=== PATIENT | female | born 1975 | race Caucasian/White ===

== ENCOUNTER 2019-09-03 05:52 | Observation (INO) ==
[2019-09-03] MEDS ORDERED: ACETAMINOPHEN 1,000 MG/100 ML VIAL IV STA ×2 (06:23→14:13)
--- NOTE | 2019-09-03 06:27 | Emergency Department Note ---
ED Visit Note This patient was seen in concert with Dr. Stein and we discussed and agreed upon the history, physical, assessment, and plan. See attending's note for details. . Resident Activity Tracking Resident Involvement: Resident Care Provided Care Provided: Adult ED
[2019-09-03 06:31] LABS: Hematocrit (blood only) 40.2 % (37-47); Hemoglobin 13.4 g/dL (12.0-16.0); Mean Corpuscular Hgb Conc 33.3 g/dL (32-36); Mean Corpuscular Volume 90.1 fL (80-100); Mean Platelet Volume 10.7 fL (7.4-10.4); Platelet Count 246 K/uL (130-400); RDW Coefficient of Variation 12.8 % (11.5-14.5); RDW Standard Deviation 41.9 fL (36.4-46.3); Red Blood Count 4.46 M/uL (4.2-5.4); White Blood Count 18.93 K/uL (4.8-10.8)
[2019-09-03 06:48] LABS: Albumin Level 4.3 gm/dl (3.4-5.0); BUN Creatinine Ratio 15.8 (10-20); Creatinine Clr Calc Pharmacy 77.1 ml/min; Est GFR (Non-African American) 63.8; Potassium 3.7 mmol/L (3.5-5.1)
[2019-09-03 06:51] LABS: Albumin Globulin Ratio 1.2 (0.9-2); Bilirubin,Total 0.7 mg/dl (0.2-1); Globulin 3.6 gm/dl (2.5-4.0); Total Protein 7.9 gm/dl (6.4-8.2)
[2019-09-03 06:52] LABS: Basophils # (auto) 0.02 K/uL (0-0.2); Basophils % (auto) 0.1 %; Eosinophils # (auto) 0.02 K/uL (0-0.5); Eosinophils % (auto) 0.1 %; Immature Granulocytes # (auto) 0.04 K/uL (0.00-0.02); Immature Granulocytes % (auto) 0.2 %; Lymphocytes # (auto) 0.59 K/uL (1.2-3.4); Lymphocytes % (auto) 3.1 %; Monocytes # (auto) 1.23 K/uL (0.11-0.59); Monocytes % (auto) 6.5 %; Neutrophils # (auto) 17.03 K/uL (1.4-6.5); Toxic Granulation 1+
[2019-09-03] MEDS ORDERED: SODIUM CHLORIDE 0.9% 500 ML IV ONE (07:03)
[2019-09-03 07:40] LABS: Appearance Urine Clear (Clear); Bacteria Urine Automated Negative (Negative); Bilirubin Urine Negative (Negative); Blood Urine 1+ (Negative); Color Urine Yellow; Epithelial Cell Urine Auto >30 /lpf (0-5); Glucose Urine UA Negative (Negative); Ketones Urine Negative (Negative); Leukocyte Esterase Urine Trace (Negative); Nitrite Urine Negative (Negative); Protein Urine Negative (Negative); Specific Gravity Urine 1.021 (1.000-1.030); Urobilinogen Urine Negative (Negative); pH Urine 6.5 (4.5-7.5)
--- NOTE | 2019-09-03 08:02 | Ultrasound Report ---
EXAMINATION: PELVIC ULTRASOUND (transabdominal and endovaginal scanning) CLINICAL HISTORY: IUD placement yesterday, R abdomen pain COMPARISON STUDY: Sonohysterography dated 08/09/2019 FINDINGS: Following transabdominal scanning, endovaginal scanning was performed to better evaluate the patient' s IUD and multiple fibroids. The uterus measured 9.3 x 4.8 x 6.6 cm. The endometrial stripe measured 1.1 cm. There are multiple uterine fibroids, the largest of which ashia sures 5 cm. There is an indwelling IUD.. The right ovary measured 33 x 19 x 26 mm. The left ovary measured 15 x 30 x 12 mm. There is no ultrasonographic evidence of ovarian torsion. It should be noted that ovarian torsion can be present with normal Doppler ultrasonographic findings. There was no evidence of pathologic free pelvic fluid. IMPRESSION: 1. Fibroid uterus. The largest fibroid measures 5 cm 2. Indwelling IUD 3. The endometrial cavity is distorted by the large fibroid 4. No ovarian abnormalities identified. ACT 112: Negative or not required by law. Electronically signed by: Marc Craig M.D. 09/03/2019 8:01 AM
[2019-09-03] MEDS ORDERED: MoRPHine SULFATE 4 MG/ML 1 ML CARP\\VIAL IV STA (08:18)
[2019-09-03] MEDS ORDERED: ONDANSETRON INJ 2 MG/ML 2 ML VIAL IV STA ×2 (08:18→13:49)
[2019-09-03] MEDS: HYDROmorphone INJ 1 MG/ML SYRINGE IV PRN ×2 (08:36→13:54)
[2019-09-03] MEDS ORDERED: IOVERSOL 100ml IV PRN (08:43)
--- NOTE | 2019-09-03 09:01 | CT Scan Report ---
CT abd pelvis IV con only CLINICAL HISTORY: Right-sided abdominal pain COMPARISON STUDY: Pelvic ultrasound dated 09/03/2019 FINDINGS: The patient was scanned in a dynamic helical fashion during intravenous administration of 94 cc of Op tiray 320. The visualized portions of lung bases reveal minimal dependent atelectatic change. No hepatic masses are visualized. The hepatic and portal veins appear patent. Gas-forming calculi are visualized within the gallbladder. No splenic lesions are visualized. No pancreatic masses are visualized. Neither adrenal gland is pathologically enlarged. There is no hydronephrosis. No solid renal masses are visualized. There is a subcentimeter right mikey l hypodensity likely representing a cyst. There are no transition zones to indicate bowel obstruction. There is no evidence of acute diverticul itis. The appendix is difficult to visualize. There is a structure which likely represents a short di lated appendix. There are however no periappendiceal inflammatory changes in this may represent an no rmal variant. There is no evidence of abdominal aortic aneurysm. There is no pathologic adenopathy. There is a fibroid uterus. There is an indwelling IUD. No destructive skeletal lesions are visualized IMPRESSION: 1. No evidence of bowel obstruction. No evidence of free air 2. Cholelithiasis 3. Fibroid uterus. Indwelling IUD. 4. No evidence of acute diverticulitis 5. The appendix is difficult to visualize but a short mildly dilated appendix is suspected. There are no periappendiceal inflammatory changes and this finding may represent a normal variant. Clinical fo llow-up is recommended. ACT 112: Negative or not required by law. Electronically signed by: Marc Craig M.D. 09/03/2019 9:00 AM
[2019-09-03] MEDS ORDERED: cefOXitin 2,000 MG/60 ML BAG IV STA (09:16)
--- NOTE | 2019-09-03 12:53 | OB/GYN Consultation ---
Date of Consultation September 03, 2019 Assessment & Plan (1) Pain in female pelvis: I have discussed with the patient the option of leaving the IUD in versus removing it I was somewhat concerned of a possible intramural insertion of the IUD simply because her pain was so much however on removing the IUD which I offered to actually have her keep in but she preferred to have removed as well on removing the IUD it was simple and no difficulty and no pain. Her bimanual exam is normal and negative I see no evidence of pelvic inflammatory disease however I did do a GC chlamydia culture I do not think her pain is [employer] related at this time but will follow closely History of Present Illness History of Present Illness 44-year-old patient known to our practice had a injury uterine device placed yesterday by Dr. Almaraz. Patient states the IUD was able to be placed but it was somewhat uncomfortable as she has a history of fibroids and it was somewhat of a difficult insertion she felt fine afterwards for some minimal cramping however over the evening she started to develop right-sided pain that was very sharp and intense. The pain worsened so much that she presented to the emergency room this morning. She was assessed by the emergency room team and general surgery. States her pain is somewhat improved at this time but is mainly on the right side it is cramping in nature at this stage. Her past [employer] history is significant for fibroids 1 of which may be intracavitary. Her medical history is significant for psoriatic arthritis and the patient is on Humira Allergies Allergy/AdvReac Type Severity Reaction Status Date / Time No Known Allergies Allergy Unverified 09/03/19 06:33 Home Medications Home Medications Medication Instructions Recorded Confirmed Type multivitamin 1 tab PO DAILY 07/10/19 09/03/19 History clobetasol 0.05 % topical cream See Rx Instructions TOP .COMPLEX 08/30/19 09/03/19 History PRN clobetasol 0.05 % topical foam See Rx Instructions TOP .COMPLEX 08/30/19 09/03/19 History PRN adalimumab [Humira Pen] 40 mg SUBCUT UD 09/03/19 09/03/19 History Patient History Medical History (Updated 09/03/19 @ 12:52 by Enma Biggs MD, FACOG) Arthritis Psoriatic arthritis Shingles Varicella Surgical History (Updated 07/10/19 @ 16:11 by MARGE Martinez) [place] teeth removed Social History (Updated 07/10/19 @ 15:57 by Eliane Lujan) Preferred Language: Arabic Feels Safe at Home: Yes Smoking Status: Never smoker Physical Exam Constitutional: WD/WN, vitals as above Respiratory: normal respiratory effort, lungs clear to auscultation Cardiovascular: RRR, no murmur, no edema Gastrointestinal (Abdomen): normal bowel sounds, soft, nontender, no hepatosplenomegaly Genitourinary: no vaginal lesions, no adnexal mass Speculum/Bimanual Exam: normal appearance of the vagina and normal appearance of the cervix (IUD string seen) IUD removed with a Sarai clamp by pulling on the string it was easily removed without discomfort there is no cervical motion tenderness the uterus is nontender on palpation and mobile Results & Data Vital Signs (Past 12 Hours) Vital Signs Temp Pulse Pulse Resp BP BP Pulse Ox 09/03/19 11:28 97 H 20 120/63 97 09/03/19 10:26 89 16 112/57 L 97 09/03/19 09:29 82 22 123/66 95 09/03/19 08:13 89 18 120/60 95 09/03/19 06:51 105 H 18 98/47 L 95 09/03/19 06:34 96 09/03/19 06:33 110 H 18 96 09/03/19 05:59 99.5 F 118 H 22 124/69 95 PG Care Time/CCT Total # of Minutes Spent Total Time Spent with Patient: Total time spent is greater than 50% in coordi nation of care (as documented) at patient's floor/unit and/or counseling patient:
--- NOTE | 2019-09-03 14:35 | Emergency Department Note ---
Entered by hSar Almodovar acting as a scribe for Norman Stein MD History of Present Illness General Chief complaint: Abdominal Pain Stated complaint: SEVERE PAIN IN LWR ABDOMEN,CHILLS Time Seen by Provider: 09/03/19 06:11 Source: patient History of Present Illness Provider complaint: Abdominal pain Onset (ago): day(s) 1 Location: abdomen Radiation: back Severity: severe Pain Consistency: + constant Maximum Pain Intensity: 3 Current Pain Intensity: 3 Associated symptoms: + denies other symptoms (Urinary symptoms ), + fever/chills (No fever) and + nausea/vomiting (No vomiting) The patient is a 44 year old female who presents to the Emergency Room with complaints of constant severe right lower quadrant pain that started yesterday evening. The patient rates the pain as a 5/10 and notes it radiates to her back. The patient reports that yesterday she had an IUD placed and she explained that it was a difficult placement. The patient endorses associated nausea and chills due to the pain but denies any vomiting, fevers, or urinary symptoms. Home Medications Home Medications Medication Instructions Recorded Confirmed Type multivitamin 1 tab PO DAILY 07/10/19 09/03/19 History clobetasol 0.05 % topical cream See Rx Instructions TOP .COMPLEX 08/30/19 09/03/19 History PRN clobetasol 0.05 % topical foam See Rx Instructions TOP .COMPLEX 08/30/19 09/03/19 History PRN adalimumab [Humira Pen] 40 mg SUBCUT UD 09/03/19 09/03/19 History Allergies Allergy/AdvReac Type Severity Reaction Status Date / Time No Known Allergies Allergy Unverified 09/03/19 06:33 Past Med/Surg History Medical History Arthritis Psoriatic arthritis Shingles Varicella Surgical History [place] teeth removed Social History Preferred Language: Armenian Communication Ability: Effective Tail Edger Required: No Beliefs That Will Affect Care: None Current Living Situation: Family Feels Safe at Home: Yes Smoking Status: Never smoker Hx Alcohol Use: Yes Alcohol type: wine and hard liquor Hx Substance Use: No Review of Systems See HPI for pertinent positives & negatives. and A total of 10 systems reviewed and were otherwise negative Physical Exam Vital Signs Vital Signs - 24 hr 09/03/19 13:58 09/03/19 14:00 09/03/19 14:01 Temperature 37.9 C H Temperature Source Oral Pulse Rate 102 H 100 H Pulse Rate [Right Finger] 104 H Pulse Rate from SpO2 Sensor 101 H 104 H Respiratory Rate 20 21 16 Blood Pressure 109/54 L Blood Pressure [Left Arm] 106/62 Blood Pressure Mean 70 Blood Pressure Mean [Left Arm] 76 Pulse Oximetry 95 92 95 Oxygen Delivery Method Room Air 09/03/19 14:30 09/03/19 14:31 Temperature Temperature Source Pulse Rate 101 H 103 H Pulse Rate [Right Finger] Pulse Rate from SpO2 Sensor 100 H 105 H Respiratory Rate 31 H 21 Blood Pressure 111/53 L Blood Pressure [Left Arm] Blood Pressure Mean 75 Blood Pressure Mean [Left Arm] Pulse Oximetry 92 94 Oxygen Delivery Method GENERAL: Awake, alert, well-appearing, in no distress HENT: Normocephalic, atraumatic. Oropharynx unremarkable. EYES: Normal conjunctiva. Sclera non-icteric. NECK: Supple. No nuchal rigidity. FROM. No masses. RESPIRATORY: Clear to auscultation. No wheezes. No rales. Normal respiratory effort. CARDIAC: Normal rate. Normal rhythm. No murmurs. No rubs. Extremities warm and well perfused. Pulses equal. No JVD. GI: Soft, non-distended. Mild tenderness to the RLQ. No rebound or guarding. No masses. RECTAL: Deferred. MUSCULOSKELETAL: Atraumatic. Chest examination reveals no tenderness. The back is symmetrical on inspection without obvious abnormality. There is no CVA tenderness to palpation. No joint edema. LOWER EXTREMITIES: Calves are equal size bilaterally and non-tender. No edema. No discoloration. NEURO: Normal sensorium. No sensory or motor deficits noted. Course Course 06: Past medical records reviewed. The patient was evaluated in room B05 by the resident Dr. Foster, and a complete history and physical examination were performed. I then performed my own assessment. 913: I reevaluated the patient and updated her on test results. 925: I spoke to Dr. Holbrook - General Surgery about the patient's case. He is going to come evaluate her. 1109: Dr. Holbrook evaluated the patient and would like OBGYN to evaluate her as well. 1114: I spoke to Dr. Kalyan GOINS about the patient's case and he is going to come evaluate the patient. 1152: Dr. Biggs took out the patient's IUD but still recommended admitting the patient. 1255: I spoke to Dr. Holbrook to update him on the treatment plan. 1302: I discussed the patient's case with Dr. Salinas and she agreed to accept her for further evaluation. Consultations Consultation #1: I spoke to Dr. Holbrook - General Surgery about the patient's case. He is going to come evaluate her. Time: 09:26 Consultation #2: I spoke to Dr. Kalyan GOINS about the patient's case and he is going to come evaluate the patient. Time: 11:14 Consultation #3: I discussed the patient's case with Dr. Salinas and she agreed to accept her for further evaluation. Time: 13:02 Administered Medications Acetaminophen (Tylenol) 650 mg PO Q4H PRN PRN Reason: Pain or Fever Stop: 10/03/19 16:31 Last Admin: 09/05/19 05:01 Dose: 650 mg Documented by: [id number] Admin: 09/04/19 19:21 Dose: 650 mg Documented by: [id number] Admin: 09/03/19 23:21 Dose: 650 mg Documented by: [id number] Hydromorphone HCl (Dilaudid) 0.5 mg IV Q2H PRN PRN Reason: Pain Stop: 09/17/19 16:31 Last Admin: 09/04/19 12:25 Dose: 0.5 mg Documented by: [id number] Admin: 09/04/19 05:19 Dose: 0.5 mg Documented by: [id number] Admin: 09/03/19 19:50 Dose: 0.5 mg Documented by: [id number] Cefoxitin Sodium (Mefoxin) 2,000 mg in 60 mls @ 100 mls/hr IV Q8H ROSEMARY; Protocol Stop: 09/13/19 17:59 Last Infusion: 09/05/19 02:30 Dose: 0 mls/hr Documented by: [id number] Admin: 09/05/19 01:34 Dose: 100 mls/hr Documented by: [id number] Infusion: 09/04/19 20:08 Dose: 0 mls/hr Documented by: [id number] Admin: 09/04/19 19:22 Dose: 100 mls/hr Documented by: [id number] Infusion: 09/04/19 13:01 Dose: 0 mls/hr Documented by: [id number] Admin: 09/04/19 12:25 Dose: 100 mls/hr Documented by: [id number] Infusion: 09/04/19 02:43 Dose: 0 mls/hr Documented by: [id number] Admin: 09/04/19 02:07 Dose: 100 mls/hr Documented by: [id number] Infusion: 09/03/19 18:42 Dose: 0 mls/hr Documented by: [id number] Admin: 09/03/19 18:04 Dose: 100 mls/hr Documented by: [id number] Multivitamins (Multivitamin Tab) 1 tab PO DAILY ROSEMARY Stop: 10/04/19 08:59 Last Admin: 09/04/19 14:35 Dose: Not Given Documented by: [id number] Ondansetron HCl (Zofran) 4 mg IV Q6H PRN PRN Reason: Nausea Stop: 10/03/19 16:31 Last Admin: 09/04/19 19:21 Dose: 4 mg Documented by: [id number] Admin: 09/04/19 09:09 Dose: 4 mg Documented by: [id number] Admin: 09/03/19 19:50 Dose: 4 mg Documented by: [id number] Discontinued Medications Hydromorphone HCl (Dilaudid) 1 mg IV Q15M PRN PRN Reason: Pain Stop: 09/17/19 08:23 Last Admin: 09/03/19 13:54 Dose: 1 mg Documented by: [id number] Admin: 09/03/19 08:36 Dose: 1 mg Documented by: [id number] Acetaminophen (Ofirmev) 1,000 mg in 100 mls @ 400 mls/hr IV NOW STA Stop: 09/03/19 06:37 Last Infusion: 09/03/19 06:50 Dose: 0 mls/hr Documented by: [id number] Admin: 09/03/19 06:31 Dose: 400 mls/hr Documented by: [id number] Sodium Chloride (Nss) 500 mls @ 999 mls/hr IV .Q31M ONE Stop: 09/03/19 07:33 Last Infusion: 09/03/19 07:46 Dose: 0 mls/hr Documented by: [id number] Admin: 09/03/19 07:16 Dose: 999 mls/hr Documented by: [id number] Cefoxitin Sodium (Mefoxin) 2,000 mg in 60 mls @ 100 mls/hr IV NOW STA Stop: 09/03/19 09:51 Last Infusion: 09/03/19 09:55 Dose: 0 mls/hr Documented by: [id number] Admin: 09/03/19 09:28 Dose: 100 mls/hr Documented by: [id number] Acetaminophen (Ofirmev) 1,000 mg in 100 mls @ 400 mls/hr IV NOW STA Stop: 09/03/19 14:27 Last Infusion: 09/03/19 14:41 Dose: 0 mls/hr Documented by: [id number] Admin: 09/03/19 14:24 Dose: 400 mls/hr Documented by: [id number] Potassium Chloride/Sodium Chloride (Normal Saline W/20 Meq Kcl) 20 meq in 1,000 mls @ 100 mls/hr IV .Q10H ROSEMARY Stop: 10/03/19 16:59 Last Admin: 09/04/19 15:29 Dose: Not Given Documented by: [id number] Infusion: 09/04/19 13:00 Dose: 0 mls/hr Documented by: [id number] Infusion: 09/04/19 12:26 Dose: 0 mls/hr Documented by: [id number] Infusion: 09/04/19 02:43 Dose: 100 mls/hr Documented by: [id number] Infusion: 09/04/19 02:07 Dose: 0 mls/hr Documented by: [id number] Admin: 09/04/19 02:07 Dose: 100 mls/hr Documented by: [id number] Infusion: 09/04/19 02:07 Dose: 100 mls/hr Documented by: [id number] Infusion: 09/03/19 18:42 Dose: 100 mls/hr Documented by: [id number] Infusion: 09/03/19 18:02 Dose: 0 mls/hr Documented by: [id number] Admin: 09/03/19 18:00 Dose: 100 mls/hr Documented by: [id number] Ioversol (Optiray 320 100ml) 94 ml IV ONCE PRN PRN Reason: Interaction Checking Stop: 09/07/19 08:42 Last Admin: 09/03/19 08:43 Dose: 94 ml Documented by: [id number] Ioversol (Optiray 320 100ml) 94 ml IV ONCE PRN PRN Reason: Interaction Checking Stop: 09/08/19 10:10 Last Admin: 09/04/19 10:12 Dose: 94 ml Documented by: [id number] Miscellaneous (Order Awaiting Action) 1 ea N/A QS ROSEMARY Stop: 10/04/19 00:00 Last Admin: 09/04/19 15:28 Dose: Not Given Documented by: [id number] Admin: 09/04/19 00:07 Dose: Not Given Documented by: [id number] Miscellaneous (Order Awaiting Action) 1 ea N/A QS ROSEMARY Stop: 10/04/19 00:00 Last Admin: 09/04/19 15:29 Dose: Not Given Documented by: [id number] Admin: 09/04/19 00:08 Dose: Not Given Documented by: [id number] Morphine Sulfate (Morphine Sulfate) 4 mg IV NOW STA Stop: 09/03/19 08:19 Last Admin: 09/03/19 08:37 Dose: Not Given Documented by: [id number] Ondansetron HCl (Zofran) 4 mg IV NOW STA Stop: 09/03/19 08:19 Last Admin: 09/03/19 08:37 Dose: 4 mg Documented by: [id number] Ondansetron HCl (Zofran) 4 mg IV NOW STA Stop: 09/03/19 13:50 Last Admin: 09/03/19 13:54 Dose: 4 mg Documented by: [id number] Critical Care Time Critical Care Time: Yes Total Critical Care Time: 30 I have personally spent greater than 30 minutes of critical care time in the direct management of this patient. This includes bedside care, interpretation of diagnostic studies, and testing, discussion with consultants, patient, and family members, and other required patient management activities. This 30 minutes is in excess of all separately billable procedures. Medical Decision Making Differential Diagnosis Differential diagnoses includes but is not limited to gastritis, peptic ulcer disease, GERD, gallbladder disease, pancreatitis, small bowel obstruction, acute coronary syndrome, pericarditis, ischemic bowel, irritable bowel disease, irritable bowel syndrome, appendicitis, diverticulitis, malignancy, hernia, urinary tract infection, torsion, /ectopic , perforation, trauma, infectious. Medical Records Attestation: I reviewed the patient's medical records. Home Medications Current Medication List: was personally reviewed by me Laboratory Data Attestation: I reviewed the patient's lab results. Result diagrams: 09/05/19 05:59 09/04/19 05:59 Lab Results 09/03/19 09/03/19 09/03/19 Range/Units 06:14 06:14 07:10 WBC 18.93 H (4.8-10.8) K/uL RBC 4.46 (4.2-5.4) M/uL Hgb 13.4 (12.0-16.0) g/dL Hct 40.2 (37-47) % MCV 90.1 (80-100) fL MCH 30.0 (25-34) pg MCHC 33.3 (32-36) g/dL RDW Std Deviation 41.9 (36.4-46.3) fL RDW Coeff of Leticia 12.8 (11.5-14.5) % Plt Count 246 (130-400) K/uL MPV 10.7 H (7.4-10.4) fL Immature Gran % (Auto) 0.2 % Neut % (Auto) 90.0 % Lymph % (Auto) 3.1 % [place] % (Auto) 6.5 % Eos % (Auto) 0.1 % Baso % (Auto) 0.1 % Immature Gran # (Auto) 0.04 H (0.00-0.02) K/uL Neut # (Auto) 17.03 H (1.4-6.5) K/uL Lymph # (Auto) 0.59 L (1.2-3.4) K/uL [place] # (Auto) 1.23 H (0.11-0.59) K/uL Eos # (Auto) 0.02 (0-0.5) K/uL Baso # (Auto) 0.02 (0-0.2) K/uL Toxic Granulation 1+ Sodium 135 L (136-145) mmol/L Potassium 3.7 (3.5-5.1) mmol/L Chloride 105 (98-107) mmol/L Carbon Dioxide 26 (21-32) mmol/L Anion Gap 4.0 (3-11) BUN 17 (7-18) mg/dl Creatinine 1.06 (0.6-1.2) mg/dl Est Cr Clr Drug Dosing 77.1 ml/min Est GFR ( Amer) 74.0 Est GFR (Non-Af Amer) 63.8 BUN/Creatinine Ratio 15.8 (10-20) Glucose 136 H (70-99) mg/dl Calcium 9.0 (8.5-10.1) mg/dl Total Bilirubin 0.7 (0.2-1) mg/dl AST 11 L (15-37) U/L ALT 28 (12-78) U/L Alkaline Phosphatase 40 L (45-117) U/L Total Protein 7.9 (6.4-8.2) gm/dl Albumin 4.3 (3.4-5.0) gm/dl Globulin 3.6 (2.5-4.0) gm/dl Albumin/Globulin Ratio 1.2 (0.9-2) Lipase 108 (73-393) U/L Urine Color Urine Appearance (Clear) Urine pH (4.5-7.5) Ur Specific [place] (1.000-1.030) Urine Protein (Negative) Urine Glucose (UA) (Negative) Urine Ketones (Negative) Urine Blood (Negative) Urine Nitrite (Negative) Urine Bilirubin (Negative) Urine Urobilinogen (Negative) Ur Leukocyte Esterase (Negative) Urine WBC (Auto) (0-5) /hpf Urine RBC (Auto) (0-4) /hpf U Hyaline Cast (Auto) (0-5) /lpf U Epithel Cells (Auto) (0-5) /lpf Urine Bacteria (Auto) (Negative) POC Ur Test NEG (NEG) C.trachomatis RNA (NOT DETECTED) N.gonorrhoeae RNA (NOT DETECTED) Specimen Comment 09/03/19 09/03/19 Range/Units 07:10 11:50 WBC (4.8-10.8) K/uL RBC (4.2-5.4) M/uL Hgb (12.0-16.0) g/dL Hct (37-47) % MCV (80-100) fL MCH (25-34) pg MCHC (32-36) g/dL RDW Std Deviation (36.4-46.3) fL RDW Coeff of Leticia (11.5-14.5) % Plt Count (130-400) K/uL MPV (7.4-10.4) fL Immature Gran % (Auto) % Neut % (Auto) % Lymph % (Auto) % [place] % (Auto) % Eos % (Auto) % Baso % (Auto) % Immature Gran # (Auto) (0.00-0.02) K/uL Neut # (Auto) (1.4-6.5) K/uL Lymph # (Auto) (1.2-3.4) K/uL [place] # (Auto) (0.11-0.59) K/uL Eos # (Auto) (0-0.5) K/uL Baso # (Auto) (0-0.2) K/uL Toxic Granulation Sodium (136-145) mmol/L Potassium (3.5-5.1) mmol/L Chloride (98-107) mmol/L Carbon Dioxide (21-32) mmol/L Anion Gap (3-11) BUN (7-18) mg/dl Creatinine (0.6-1.2) mg/dl Est Cr Clr Drug Dosing ml/min Est GFR ( Amer) Est GFR (Non-Af Amer) BUN/Creatinine Ratio (10-20) Glucose (70-99) mg/dl Calcium (8.5-10.1) mg/dl Total Bilirubin (0.2-1) mg/dl AST (15-37) U/L ALT (12-78) U/L Alkaline Phosphatase (45-117) U/L Total Protein (6.4-8.2) gm/dl Albumin (3.4-5.0) gm/dl Globulin (2.5-4.0) gm/dl Albumin/Globulin Ratio (0.9-2) Lipase (73-393) U/L Urine Color Yellow Urine Appearance Clear (Clear) Urine pH 6.5 (4.5-7.5) Ur Specific [place] 1.021 (1.000-1.030) Urine Protein Negative (Negative) Urine Glucose (UA) Negative (Negative) Urine Ketones Negative (Negative) Urine Blood 1+ H (Negative) Urine Nitrite Negative (Negative) Urine Bilirubin Negative (Negative) Urine Urobilinogen Negative (Negative) Ur Leukocyte Esterase Trace H (Negative) Urine WBC (Auto) 1-5 (0-5) /hpf Urine RBC (Auto) 5-10 H (0-4) /hpf U Hyaline Cast (Auto) 1-5 (0-5) /lpf U Epithel Cells (Auto) >30 H (0-5) /lpf Urine Bacteria (Auto) Negative (Negative) POC Ur Test (NEG) C.trachomatis RNA NOT DETECTED (NOT DETECTED) N.gonorrhoeae RNA NOT DETECTED (NOT DETECTED) Specimen Comment SEE NOTE Imaging Data Radiologist's Impression: Radiology results as stated below per my review and the radiologist's interpretation: CT abd pelvis IV con only CLINICAL HISTORY: Right-sided abdominal pain COMPARISON STUDY: Pelvic ultrasound dated 09/03/2019 FINDINGS: The patient was scanned in a dynamic helical fashion during intravenous administration of 94 cc of Optiray 320. The visualized portions of lung bases reveal minimal dependent atelectatic change. No hepatic masses are visualized. The hepatic and portal veins appear patent. Gas-forming calculi are visualized within the gallbladder. No splenic lesions are visualized. No pancreatic masses are visualized. Neither adrenal gland is pathologically enlarged. There is no hydronephrosis. No solid renal masses are visualized. There is a subcentimeter right renal hypodensity likely representing a cyst. There are no transition zones to indicate bowel obstruction. There is no evidence of acute diverticulitis. The appendix is difficult to visualize. There is a structure which likely represents a short dilated appendix. There are however no periappendiceal inflammatory changes in this may represent an normal variant. There is no evidence of abdominal aortic aneurysm. There is no pathologic adenopathy. There is a fibroid uterus. There is an indwelling IUD. No destructive skeletal lesions are visualized IMPRESSION: 1. No evidence of bowel obstruction. No evidence of free air 2. Cholelithiasis 3. Fibroid uterus. Indwelling IUD. 4. No evidence of acute diverticulitis 5. The appendix is difficult to visualize but a short mildly dilated appendix is suspected. There are no periappendiceal inflammatory changes and this finding may represent a normal variant. Clinical follow-up is recommended. ACT 112: Negative or not required by law. Electronically signed by: Marc Craig M.D. 09/03/2019 9:00 AM EXAMINATION: PELVIC ULTRASOUND (transabdominal and endovaginal scanning) CLINICAL HISTORY: IUD placement yesterday, R abdomen pain COMPARISON STUDY: Sonohysterography dated 08/09/2019 FINDINGS: Following transabdominal scanning, endovaginal scanning was performed to better evaluate the patient's IUD and multiple fibroids. The uterus measured 9.3 x 4.8 x 6.6 cm. The endometrial stripe measured 1.1 cm. There are multiple uterine fibroids, the largest of which measures 5 cm. There is an indwelling IUD.. The right ovary measured 33 x 19 x 26 mm. The left ovary measured 15 x 30 x 12 mm. There is no ultrasonographic evidence of ovarian torsion. It should be noted that ovarian torsion can be present with normal Doppler ultrasonographic findings. There was no evidence of pathologic free pelvic fluid. IMPRESSION: 1. Fibroid uterus. The largest fibroid measures 5 cm 2. Indwelling IUD 3. The endometrial cavity is distorted by the large fibroid 4. No ovarian abnormalities identified. ACT 112: Negative or not required by law. Electronically signed by: Marc Craig M.D. 09/03/2019 8:01 AM Blood Pressure Blood Pressure Findings: Normal blood pressure Blood Pressure Disposition: further management by hospitalist [facility] Narrative Is a 44-year-old female on Humira who presents to the emergency department complaining of right lower quadrant abdominal pain that started this morning. The patient recently had an IUD placed yesterday. The patient is on Humira. Based on the patient's complaint she was sent for CAT scan the abdomen pelvis. It is unclear precisely what is going on so I did discuss the case with general surgery as well as gynecology. Both were kind enough to see the patient in the emergency department. As a team the decision was made to admit the patient to the hospitalist service for serial abdominal examinations. The patient was started on cefoxitin here in the emergency department. She was given Tylenol as well as Dilaudid for her pain. Impression & Plan Abdominal pain Discharge Plan Visit Data *Final* Discharge Date/Time: 09/03/19 16:33 Chief Complaint: Abdominal Pain Stated Complaint: SEVERE PAIN IN LWR ABDOMEN,CHILLS ED Provider: Norman Stein ED Midlevel Provider: Dayday Foster Discharge Problem: Abdominal pain Patient Disposition: Admitted As Inpatient Discharge Instructions Interventions: ED Discharge Assessment Last Done: 09/03/19 16:33 Discharge Problem: Abdominal pain Qualifiers: Abdominal location: right lower quadrant Qualified Code(s): R10.31 - Right lower quadrant pain The scribe's documentation has been prepared under my direction and personally reviewed by me in its entirety. I confirm that the note above accurately reflects all work, treatment, procedures, and medical decision making performed by me.
--- NOTE | 2019-09-03 15:03 | History & Physical Report ---
Date of Service September 03, 2019 Assessment & Plan (1) Pain in female pelvis: Admit to [facility] Vital signs every 4 hours Started cefoxitin 2 g IV every 8 hours . Follow-up GC chlamydia from cultures . Trend down leukocytosis Keep n.p.o. IV fluid hydration with normal saline Removed IUD by Dr. Mao [employer] REPRESENTATIVE Full code (2) Abdominal pain: As the above. Patient prefers conservative treatment at first. Trend down leukocytosis. Follow-up with another scan of appendix if necessary. Present on Admission?: Yes (3) Psoriatic arthritis: Patient does not appear to be in a flare. Hold meropenem for now. Continue home medicine clobetasol ointment topical as directed and multivitamins. Present on Admission?: Yes History of Present Illness Chief Complaint: Abdominal pain Primary Care Provider: Cole Coppola PA-C Patient is a 44 years old female with past medical history of rheumatoid arthritis and uterine fibroids who presented to the emergency room with a complaint of lower right-sided abdominal pain that started last night and continued in the morning which she describes as throbbing. She reports having Mirena IUD placed yesterday for uterine fibroids and because her menstrual periods were very heavy, by Dr. Mao. This morning when she arrived to the emergency room decision was made to remove IUD which patient said that it was not painful at all. This did not help with the patient pain. Patient reports pain after removal of IUD. Patient is mother of 2 and had normal vaginal delivery so far. Patient never had any procedure done in her genitourinary system except for placement of IUD. Patient denies previous STDs or any kind of infection ongoing. Patient is in stable marriage. Patient denies fever, chills, chest pain, shortness of breath, frequency, urgency. Labs are reviewed: WBC is 18.93, hemoglobin 13.4, hematocrit 40.2, platelets 246, sodium 135, potassium 3.7, BUN 17, creatinine 1.06, GFR 63.8, lipase 108, AST 11, ALT 28, urine is yellow clear with 1+ blood, negative for nitrates, Leukocyte esterase trace. GC chlamydia and gonorrhea pending. Patient denies herpes virus infection. CT abdomen pelvis shows no evidence of bowel obstruction. No evidence of free air. Cholelithiasis. Fibroid uterus. Indwelling IUD(this was before removal) no evidence of acute diverticulitis. The appendix is difficult to visualize but a short mildly dilated appendix is suspected. There are no guido-appendiceal inflammation changes and this finding may represent a normal variant. Transvaginal sonogram is characteristic for fibroid uterus. The largest fibroid mass is 5 cm. Indwelling IUD. The endometrial cavity is distorted by the large fibroid. No ovarian abnormality identified. Decision was made to admit patient to [facility] for observation and possible surgical treatment of appendectomy if abdominal pain does not improve and if white blood cell count continues to rise. This case was just cussed with general surgery Dr. Holbrook. Allergies Allergy/AdvReac Type Severity Reaction Status Date / Time No Known Allergies Allergy Unverified 09/03/19 06:33 Home Medications Home Medications Medication Instructions Recorded Confirmed Type multivitamin 1 tab PO DAILY 07/10/19 09/03/19 History clobetasol 0.05 % topical cream See Rx Instructions TOP .COMPLEX 08/30/19 09/03/19 History PRN clobetasol 0.05 % topical foam See Rx Instructions TOP .COMPLEX 08/30/19 09/03/19 History PRN adalimumab [Humira Pen] 40 mg SUBCUT UD 09/03/19 09/03/19 History Past Med/Surg History Medical History Arthritis Psoriatic arthritis Shingles Varicella Surgical History [place] teeth removed Social History Preferred Language: Tajik Feels Safe at Home: Yes Smoking Status: Never smoker Review of Systems Review of Systems: All systems reviewed & are unremarkable except as noted in HPI & below Physical Exam Constitutional: WD/WN, vitals as above well developed and + obese Eyes: PERRL, conjunctivae normal, anicteric sclerae ENMT: external ear and nose normal, oropharynx normal Neck: trachea midline, no thyromegaly Respiratory: normal respiratory effort, lungs clear to auscultation Cardiovascular: RRR, no murmur, no edema Gastrointestinal (Abdomen): normal bowel sounds, soft, nontender, no hepatosplenomegaly Musculoskeletal: no cyanosis or clubbing, extremities motor strength 5/5 Skin: no rashes, warm and dry Neurologic: patellar DTR's 2+ bilat, sensation intact Psychiatric: A+Ox3, euthymic affect Genitourinary: no vaginal lesions, no adnexal mass Speculum/Bimanual Exam: normal appearance of the vagina and normal appearance of the cervix (IUD string seen) Lymphatic: no cervical or axillary lymphadenopathy Results & Data Vital Signs (Past 12 Hours) Vital Signs Temp Pulse Pulse Resp BP BP Pulse Ox 09/03/19 13:58 37.9 C H 104 H 20 106/62 95 09/03/19 13:30 101 H 22 106/62 98 09/03/19 11:28 97 H 20 120/63 97 09/03/19 10:26 89 16 112/57 L 97 09/03/19 09:29 82 22 123/66 95 09/03/19 08:13 89 18 120/60 95 09/03/19 06:51 105 H 18 98/47 L 95 09/03/19 06:34 96 09/03/19 06:33 110 H 18 96 09/03/19 05:59 37.5 C 118 H 22 124/69 95 Code Status & VTE Plan Code Status Full code VTE Prophylaxis Plan VTE Prophylaxis will be ordered: Yes PG Care Time/CCT Total # of Minutes Spent Total Time Spent with Patient: Total time spent is greater than 50% in coordination of care (as documented) at patient's floor/unit and/or counseling patient:
[2019-09-03] MEDS ORDERED: CLOBETASOL TOP PRN (16:32)
[2019-09-03] MEDS ORDERED: ALUMINUM/MAGNESIUM SUSP 30 ML UDC PO PRN (16:32)
[2019-09-03] MEDS ORDERED: MAGNESIUM HYDROXIDE SUSP 30 ML UDC PO PRN (16:32)
[2019-09-03 17:57] LABS: Basophils # (auto) 0.02 K/uL (0-0.2); Basophils % (auto) 0.1 %; Eosinophils # (auto) 0.01 K/uL (0-0.5); Hematocrit (blood only) 39.4 % (37-47); Hemoglobin 12.8 g/dL (12.0-16.0); Immature Granulocytes # (auto) 0.08 K/uL (0.00-0.02); Immature Granulocytes % (auto) 0.4 %; Lymphocytes # (auto) 1.25 K/uL (1.2-3.4); Lymphocytes % (auto) 5.7 %; Mean Corpuscular Hemoglobin 30.2 pg (25-34); Mean Corpuscular Hgb Conc 32.5 g/dL (32-36); Mean Corpuscular Volume 92.9 fL (80-100); Mean Platelet Volume 10.8 fL (7.4-10.4); Monocytes # (auto) 1.42 K/uL (0.11-0.59); Monocytes % (auto) 6.5 %; Neutrophils # (auto) 18.97 K/uL (1.4-6.5); Neutrophils % (auto) 87.3 %; Platelet Count 231 K/uL (130-400); RDW Standard Deviation 44.1 fL (36.4-46.3); Red Blood Count 4.24 M/uL (4.2-5.4); White Blood Count 21.75 K/uL (4.8-10.8)
[2019-09-03] MEDS: NSS + 20MEQ KCL 20 MEQ/1,000 ML BAG IV SCH (18:00)
[2019-09-03] MEDS: cefOXitin 2,000 MG/60 ML BAG IV SCH (18:04)
--- NOTE | 2019-09-03 18:26 | Surgery Consultation ---
Date of Consultation September 03, 2019 Assessment & Plan (1) Abdominal pain: Etiology of her abdominal discomfort is unclear. I reviewed the CT images with the radiologist. There is no convincing evidence of appendicitis in her history is not classic for appendicitis. Gynecology was evaluated regarding the possible issue with the IUD but reported no cervical motion tenderness. I had a long discussion with the patient regarding options which would include observation overnight with IV antibiotics versus immediate appendectomy. We discussed the laparoscopic appendectomy and the possible need to convert to an open procedure. The fact that she is on Humira also complicates the evaluation. She has chosen observation. Will use serial exams and repeat blood work for further evaluation as well. History of Present Illness Reason for Consultation: Right-sided abdominal pain Requesting Physician: Silvio Salinas MD Attending Physician: Silvio Salinas MD History of Present Illness I been asked by Dr. Stein and Dr. Salinas to see this 44-year-old female who presented to the emergency room with a complaint of abdominal pain located mostly towards the right lower side. The patient states that she underwent placement of an IUD yesterday. She had some crampy discomfort following that through the evening. She went to bed but then awoke with sharp pain in the right lower side. She had had no right lower quadrant pain prior to going to bed. The pain started in the right side and remained there. The severity did not relent and so she presented to the emergency room. She continues to have pain in that area. When she awoke she also said that she had chills. She had no documented temperature elevation however. She had some nausea but did not vomit. Over the last few months she has been having more loose stool but it is not diarrhea. She has occasional blood on the paper but that is not frequent. There is never enough blood to color the water. She has no dysuria or hematuria. She has not had any vaginal discharge. Allergies Allergy/AdvReac Type Severity Reaction Status Date / Time No Known Allergies Allergy Unverified 09/03/19 06:33 Home Medications Home Medications Medication Instructions Recorded Confirmed Type multivitamin 1 tab PO DAILY 07/10/19 09/03/19 History clobetasol 0.05 % topical cream See Rx Instructions TOP .COMPLEX 08/30/19 09/03/19 History PRN clobetasol 0.05 % topical foam See Rx Instructions TOP .COMPLEX 08/30/19 09/03/19 History PRN adalimumab [Humira Pen] 40 mg SUBCUT UD 09/03/19 09/03/19 History Patient History Medical History Arthritis Psoriatic arthritis Shingles Varicella Surgical History [place] teeth removed Social History Preferred Language: Slovenian Communication Ability: Effective Geriatric Nurse Assistant Required: No Beliefs That Will Affect Care: None Current Living Situation: Family Feels Safe at Home: Yes Smoking Status: Never smoker Hx Alcohol Use: Yes Alcohol type: wine and hard liquor Hx Substance Use: No Review of Systems Review of Systems: All systems reviewed & are unremarkable except as noted in HPI & below Physical Exam Constitutional: no acute distress Neck: Thyroid: normal thyroid Respiratory: normal respiratory effort, lungs clear to auscultation Cardiovascular: Rate/Rhythm: regular rate and regular rhythm Gastrointestinal (Abdomen): Inspection/Auscultation: abdomen not distended Percussion/Palpation: + abdomen tender (Right side of abdomen mostly in the lower quadrant) and abdomen soft; no abdominal mass Skin: no rashes, warm and dry Lymphatic: no cervical lymphadenopathy Results & Data Vital Signs (Past 12 Hours) Vital Signs Temp Pulse Pulse Resp BP BP Pulse Ox 09/03/19 16:42 36.7 C 70 20 99/50 L 97 09/03/19 15:31 37.7 C H 09/03/19 14:31 103 H 21 94 09/03/19 14:30 101 H 31 H 111/53 L 92 09/03/19 14:01 100 H 16 95 09/03/19 14:00 102 H 21 109/54 L 92 09/03/19 13:58 37.9 C H 104 H 20 106/62 95 09/03/19 13:31 98 H 20 97 09/03/19 13:30 100 H 101 H 18 106/62 106/62 97 09/03/19 13:01 99 H 25 H 118/67 97 09/03/19 13:00 98 H 21 98 09/03/19 12:31 95 H 22 97 09/03/19 12:30 103 H 20 100/55 L 98 09/03/19 12:08 99 H 21 123/68 98 09/03/19 12:07 21 09/03/19 11:28 97 H 20 120/63 97 09/03/19 11:01 87 19 96 09/03/19 11:00 86 20 120/63 96 09/03/19 10:31 84 1 L 95 09/03/19 10:30 84 4 L 92/53 L 95 09/03/19 10:26 89 16 112/57 L 97 09/03/19 10:01 80 19 94 09/03/19 10:00 81 21 112/57 L 96 09/03/19 09:31 82 18 96 09/03/19 09:30 85 18 123/66 96 09/03/19 09:29 82 22 123/66 95 09/03/19 09:01 80 14 95 09/03/19 09:00 87 16 93/52 L 94 09/03/19 08:31 88 18 95 09/03/19 08:13 89 18 120/60 95 09/03/19 06:51 105 H 18 98/47 L 95 09/03/19 06:34 96 09/03/19 06:33 110 H 18 96 Laboratory Results 09/03/19 09/03/19 09/03/19 Range/Units 17:20 11:50 07:10 WBC 21.75 H (4.8-10.8) K/uL RBC 4.24 (4.2-5.4) M/uL Hgb 12.8 (12.0-16.0) g/dL Hct 39.4 (37-47) % MCV 92.9 (80-100) fL MCH 30.2 (25-34) pg MCHC 32.5 (32-36) g/dL RDW Std Deviation 44.1 (36.4-46.3) fL RDW Coeff of Leticia 13.0 (11.5-14.5) % Plt Count 231 (130-400) K/uL MPV 10.8 H (7.4-10.4) fL Immature Gran % (Auto) 0.4 % Neut % (Auto) 87.3 % Lymph % (Auto) 5.7 % [place] % (Auto) 6.5 % Eos % (Auto) 0.0 % Baso % (Auto) 0.1 % Immature Gran # (Auto) 0.08 H (0.00-0.02) K/uL Neut # (Auto) 18.97 H (1.4-6.5) K/uL Lymph # (Auto) 1.25 (1.2-3.4) K/uL [place] # (Auto) 1.42 H (0.11-0.59) K/uL Eos # (Auto) 0.01 (0-0.5) K/uL Baso # (Auto) 0.02 (0-0.2) K/uL Toxic Granulation Sodium (136-145) mmol/L Potassium (3.5-5.1) mmol/L Chloride (98-107) mmol/L Carbon Dioxide (21-32) mmol/L Anion Gap (3-11) BUN (7-18) mg/dl Creatinine (0.6-1.2) mg/dl Est Cr Clr Drug Dosing ml/min Est GFR ( Amer) Est GFR (Non-Af Amer) BUN/Creatinine Ratio (10-20) Glucose (70-99) mg/dl Calcium (8.5-10.1) mg/dl Total Bilirubin (0.2-1) mg/dl AST (15-37) U/L ALT (12-78) U/L Alkaline Phosphatase (45-117) U/L Total Protein (6.4-8.2) gm/dl Albumin (3.4-5.0) gm/dl Globulin (2.5-4.0) gm/dl Albumin/Globulin Ratio (0.9-2) Lipase (73-393) U/L Urine Color Yellow Urine Appearance Clear (Clear) Urine pH 6.5 (4.5-7.5) Ur Specific [place] 1.021 (1.000-1.030) Urine Protein Negative (Negative) Urine Glucose (UA) Negative (Negative) Urine Ketones Negative (Negative) Urine Blood 1+ H (Negative) Urine Nitrite Negative (Negative) Urine Bilirubin Negative (Negative) Urine Urobilinogen Negative (Negative) Ur Leukocyte Esterase Trace H (Negative) Urine WBC (Auto) 1-5 (0-5) /hpf Urine RBC (Auto) 5-10 H (0-4) /hpf U Hyaline Cast (Auto) 1-5 (0-5) /lpf U Epithel Cells (Auto) >30 H (0-5) /lpf Urine Bacteria (Auto) Negative (Negative) POC Ur Test (NEG) C.trachomatis RNA Pending N.gonorrhoeae RNA Pending Specimen Comment Pending 09/03/19 09/03/19 09/03/19 Range/Units 07:10 06:14 06:14 WBC 18.93 H (4.8-10.8) K/uL RBC 4.46 (4.2-5.4) M/uL Hgb 13.4 (12.0-16.0) g/dL Hct 40.2 (37-47) % MCV 90.1 (80-100) fL MCH 30.0 (25-34) pg MCHC 33.3 (32-36) g/dL RDW Std Deviation 41.9 (36.4-46.3) fL RDW Coeff of [place] 12.8 (11.5-14.5) % Plt Count 246 (130-400) K/uL MPV 10.7 H (7.4-10.4) fL Immature Gran % (Auto) 0.2 % Neut % (Auto) 90.0 % Lymph % (Auto) 3.1 % [place] % (Auto) 6.5 % Eos % (Auto) 0.1 % Baso % (Auto) 0.1 % Immature Gran # (Auto) 0.04 H (0.00-0.02) K/uL Neut # (Auto) 17.03 H (1.4-6.5) K/uL Lymph # (Auto) 0.59 L (1.2-3.4) K/uL [place] # (Auto) 1.23 H (0.11-0.59) K/uL Eos # (Auto) 0.02 (0-0.5) K/uL Baso # (Auto) 0.02 (0-0.2) K/uL Toxic Granulation 1+ Sodium 135 L (136-145) mmol/L Potassium 3.7 (3.5-5.1) mmol/L Chloride 105 (98-107) mmol/L Carbon Dioxide 26 (21-32) mmol/L Anion Gap 4.0 (3-11) BUN 17 (7-18) mg/dl Creatinine 1.06 (0.6-1.2) mg/dl Est Cr Clr Drug Dosing 77.1 ml/min Est GFR ( Amer) 74.0 Est GFR (Non-Af Amer) 63.8 BUN/Creatinine Ratio 15.8 (10-20) Glucose 136 H (70-99) mg/dl Calcium 9.0 (8.5-10.1) mg/dl Total Bilirubin 0.7 (0.2-1) mg/dl AST 11 L (15-37) U/L ALT 28 (12-78) U/L Alkaline Phosphatase 40 L (45-117) U/L Total Protein 7.9 (6.4-8.2) gm/dl Albumin 4.3 (3.4-5.0) gm/dl Globulin 3.6 (2.5-4.0) gm/dl Albumin/Globulin Ratio 1.2 (0.9-2) Lipase 108 (73-393) U/L Urine Color Urine Appearance (Clear) Urine pH (4.5-7.5) Ur Specific [place] (1.000-1.030) Urine Protein (Negative) Urine Glucose (UA) (Negative) Urine Ketones (Negative) Urine Blood (Negative) Urine Nitrite (Negative) Urine Bilirubin (Negative) Urine Urobilinogen (Negative) Ur Leukocyte Esterase (Negative) Urine WBC (Auto) (0-5) /hpf Urine RBC (Auto) (0-4) /hpf U Hyaline Cast (Auto) (0-5) /lpf U Epithel Cells (Auto) (0-5) /lpf Urine Bacteria (Auto) (Negative) POC Ur Test NEG (NEG) C.trachomatis RNA N.gonorrhoeae RNA Specimen Comment Diagnostic Findings EXAMINATION: PELVIC ULTRASOUND (transabdominal and endovaginal scanning) CLINICAL HISTORY: IUD placement yesterday, R abdomen pain COMPARISON STUDY: Sonohysterography dated 08/09/2019 FINDINGS: Following transabdominal scanning, endovaginal scanning was performed to better evaluate the patient's IUD and multiple fibroids. The uterus measured 9.3 x 4.8 x 6.6 cm. The endometrial stripe measured 1.1 cm. There are multiple uterine fibroids, the largest of which measures 5 cm. There is an indwelling IUD.. The right ovary measured 33 x 19 x 26 mm. The left ovary measured 15 x 30 x 12 mm. There is no ultrasonographic evidence of ovarian torsion. It should be noted that ovarian torsion can be present with normal Doppler ultrasonographic findings. There was no evidence of pathologic free pelvic fluid. IMPRESSION: 1. Fibroid uterus. The largest fibroid measures 5 cm 2. Indwelling IUD 3. The endometrial cavity is distorted by the large fibroid 4. No ovarian abnormalities identified. CT abd pelvis IV con only CLINICAL HISTORY: Right-sided abdominal pain COMPARISON STUDY: Pelvic ultrasound dated 09/03/2019 FINDINGS: The patient was scanned in a dynamic helical fashion during intravenous administration of 94 cc of Optiray 320. The visualized portions of lung bases reveal minimal dependent atelectatic change. No hepatic masses are visualized. The hepatic and portal veins appear patent. Gas-forming calculi are visualized within the gallbladder. No splenic lesions are visualized. No pancreatic masses are visualized. Neither adrenal gland is pathologically enlarged. There is no hydronephrosis. No solid renal masses are visualized. There is a subcentimeter right renal hypodensity likely representing a cyst. There are no transition zones to indicate bowel obstruction. There is no evidence of acute diverticulitis. The appendix is difficult to visualize. There is a structure which likely represents a short dilated appendix. There are however no periappendiceal inflammatory changes in this may represent an normal variant. There is no evidence of abdominal aortic aneurysm. There is no pathologic adenopathy. There is a fibroid uterus. There is an indwelling IUD. No destructive skeletal lesions are visualized IMPRESSION: 1. No evidence of bowel obstruction. No evidence of free air 2. Cholelithiasis 3. Fibroid uterus. Indwelling IUD. 4. No evidence of acute diverticulitis 5. The appendix is difficult to visualize but a short mildly dilated appendix is suspected. There are no periappendiceal inflammatory changes and this finding may represent a normal variant. Clinical follow-up is recommended.
[2019-09-03] MEDS: HYDROmorphone INJ 0.5 MG/0.5 ML SYR IV PRN (19:50)
[2019-09-03] MEDS: ONDANSETRON INJ 2 MG/ML 2 ML VIAL IV PRN (19:50)
[2019-09-03] MEDS: ACETAMINOPHEN 325 MG TAB PO PRN (23:21)
[2019-09-04] MEDS: cefOXitin 2,000 MG/60 ML BAG IV SCH ×3 (02:07→19:22)
[2019-09-04] MEDS: NSS + 20MEQ KCL 20 MEQ/1,000 ML BAG IV SCH ×2 (02:07→15:29)
[2019-09-04] MEDS: HYDROmorphone INJ 0.5 MG/0.5 ML SYR IV PRN ×2 (05:19→12:25)
[2019-09-04 06:33] LABS: Basophils # (auto) 0.02 K/uL (0-0.2); Basophils % (auto) 0.1 %; Eosinophils # (auto) 0.05 K/uL (0-0.5); Eosinophils % (auto) 0.3 %; Hematocrit (blood only) 37.5 % (37-47); Hemoglobin 12.5 g/dL (12.0-16.0); Immature Granulocytes # (auto) 0.04 K/uL (0.00-0.02); Immature Granulocytes % (auto) 0.3 %; Lymphocytes # (auto) 1.31 K/uL (1.2-3.4); Lymphocytes % (auto) 9.1 %; Mean Corpuscular Hemoglobin 30.6 pg (25-34); Mean Corpuscular Hgb Conc 33.3 g/dL (32-36); Mean Corpuscular Volume 91.7 fL (80-100); Mean Platelet Volume 10.8 fL (7.4-10.4); Monocytes # (auto) 1.05 K/uL (0.11-0.59); Monocytes % (auto) 7.3 %; Neutrophils # (auto) 11.98 K/uL (1.4-6.5); Neutrophils % (auto) 82.9 %; Platelet Count 206 K/uL (130-400); RDW Coefficient of Variation 13.1 % (11.5-14.5); RDW Standard Deviation 43.9 fL (36.4-46.3); Red Blood Count 4.09 M/uL (4.2-5.4); White Blood Count 14.45 K/uL (4.8-10.8)
--- NOTE | 2019-09-04 06:43 | Gynecologic Progress Note ---
Date of Service September 04, 2019 Subjective Patient still feeling pain it is no different since removing her IUD her bleeding is not changed. At this stage I do not think her pain is METAL T[employer]TER related but we will follow closely with the team Results & Data Vital Signs (Past 12 Hours) Vital Signs Temp Pulse Resp BP Pulse Ox 09/04/19 02:59 99.0 F 98 H 09/04/19 00:07 100.9 F H 106 H 09/03/19 23:20 102.7 F H 113 H 18 97/60 L 95 PG Care Time/CCT Total # of Minutes Spent Total Time Spent with Patient: Total time spent is greater than 50% in coordination of care (as documented) at patient's floor/unit and/or counseling patient:
[2019-09-04 07:02] LABS: Albumin Level 3.2 gm/dl (3.4-5.0); BUN Creatinine Ratio 12.1 (10-20); Calcium 8.4 mg/dl (8.5-10.1); Creatinine Clr Calc Pharmacy 84.1 ml/min; Est GFR (African American) 83.4; Est GFR (Non-African American) 71.9; Potassium 3.9 mmol/L (3.5-5.1)
[2019-09-04 07:05] LABS: Albumin Globulin Ratio 0.9 (0.9-2); Bilirubin,Total 0.5 mg/dl (0.2-1); Globulin 3.6 gm/dl (2.5-4.0); Total Protein 6.8 gm/dl (6.4-8.2)
--- NOTE | 2019-09-04 07:05 | Surgery Progress Note ---
Date of Service September 04, 2019 Assessment & Plan (1) Abdominal pain: Patient had fever last night but feels some better and exam is a little bit less tender and white count has decreased to 14,000 but tenderness does persist. We will plan for a re-CT scan this morning for comparison. Continue n.p.o. and IV antibiotics Subjective Feels a little bit better this morning. Had fever last night That is decreased this morning Pain persists but slightly less this morning No nausea or vomiting Physical Exam Gastrointestinal (Abdomen): Inspection/Auscultation: abdomen normal to inspection Percussion/Palpation: + abdomen tender (Tenderness remains mostly in the right side and slightly decreased today) and abdomen soft; no abdominal mass Results & Data Vital Signs (Past 12 Hours) Vital Signs Temp Pulse Resp BP Pulse Ox 09/04/19 02:59 37.2 C 98 H 09/04/19 00:07 38.3 C H 106 H 09/03/19 23:20 39.3 C H 113 H 18 97/60 L 95 Laboratory Results 09/04/19 09/04/19 09/03/19 Range/Units 05:59 05:59 17:20 WBC 14.45 H 21.75 H (4.8-10.8) K/uL RBC 4.09 L 4.24 (4.2-5.4) M/uL Hgb 12.5 12.8 (12.0-16.0) g/dL Hct 37.5 39.4 (37-47) % MCV 91.7 92.9 (80-100) fL MCH 30.6 30.2 (25-34) pg MCHC 33.3 32.5 (32-36) g/dL RDW Std Deviation 43.9 44.1 (36.4-46.3) fL RDW Coeff of Leticia 13.1 13.0 (11.5-14.5) % Plt Count 206 231 (130-400) K/uL MPV 10.8 H 10.8 H (7.4-10.4) fL Immature Gran % (Auto) 0.3 0.4 % Neut % (Auto) 82.9 87.3 % Lymph % (Auto) 9.1 5.7 % [place] % (Auto) 7.3 6.5 % Eos % (Auto) 0.3 0.0 % Baso % (Auto) 0.1 0.1 % Immature Gran # (Auto) 0.04 H 0.08 H (0.00-0.02) K/uL Neut # (Auto) 11.98 H 18.97 H (1.4-6.5) K/uL Lymph # (Auto) 1.31 1.25 (1.2-3.4) K/uL [place] # (Auto) 1.05 H 1.42 H (0.11-0.59) K/uL Eos # (Auto) 0.05 0.01 (0-0.5) K/uL Baso # (Auto) 0.02 0.02 (0-0.2) K/uL Sodium 137 (136-145) mmol/L Potassium 3.9 (3.5-5.1) mmol/L Chloride 108 H (98-107) mmol/L Carbon Dioxide 27 (21-32) mmol/L Anion Gap 2.0 L (3-11) BUN 12 (7-18) mg/dl Creatinine 0.96 (0.6-1.2) mg/dl Est Cr Clr Drug Dosing 84.1 ml/min Est GFR ( Amer) 83.4 Est GFR (Non-Af Amer) 71.9 BUN/Creatinine Ratio 12.1 (10-20) Glucose 114 H (70-99) mg/dl Calcium 8.4 L (8.5-10.1) mg/dl Total Bilirubin Pending AST 6 L (15-37) U/L ALT 19 (12-78) U/L Alkaline Phosphatase Pending Total Protein Pending Albumin 3.2 L (3.4-5.0) gm/dl Globulin Pending Albumin/Globulin Ratio Pending Urine Color Urine Appearance (Clear) Urine pH (4.5-7.5) Ur Specific [place] (1.000-1.030) Urine Protein (Negative) Urine Glucose (UA) (Negative) Urine Ketones (Negative) Urine Blood (Negative) Urine Nitrite (Negative) Urine Bilirubin (Negative) Urine Urobilinogen (Negative) Ur Leukocyte Esterase (Negative) Urine WBC (Auto) (0-5) /hpf Urine RBC (Auto) (0-4) /hpf U Hyaline Cast (Auto) (0-5) /lpf U Epithel Cells (Auto) (0-5) /lpf Urine Bacteria (Auto) (Negative) POC Ur Test (NEG) C.trachomatis RNA N.gonorrhoeae RNA Specimen Comment 09/03/19 09/03/19 09/03/19 Range/Units 11:50 07:10 07:10 WBC (4.8-10.8) K/uL RBC (4.2-5.4) M/uL Hgb (12.0-16.0) g/dL Hct (37-47) % MCV (80-100) fL MCH (25-34) pg MCHC (32-36) g/dL RDW Std Deviation (36.4-46.3) fL RDW Coeff of [place]icia (11.5-14.5) % Plt Count (130-400) K/uL MPV (7.4-10.4) fL Immature Gran % (Auto) % Neut % (Auto) % Lymph % (Auto) % [place] % (Auto) % Eos % (Auto) % Baso % (Auto) % Immature Gran # (Auto) (0.00-0.02) K/uL Neut # (Auto) (1.4-6.5) K/uL Lymph # (Auto) (1.2-3.4) K/uL [place] # (Auto) (0.11-0.59) K/uL Eos # (Auto) (0-0.5) K/uL Baso # (Auto) (0-0.2) K/uL Sodium (136-145) mmol/L Potassium (3.5-5.1) mmol/L Chloride (98-107) mmol/L Carbon Dioxide (21-32) mmol/L Anion Gap (3-11) BUN (7-18) mg/dl Creatinine (0.6-1.2) mg/dl Est Cr Clr Drug Dosing ml/min Est GFR ( Amer) Est GFR (Non-Af Amer) BUN/Creatinine Ratio (10-20) Glucose (70-99) mg/dl Calcium (8.5-10.1) mg/dl Total Bilirubin AST (15-37) U/L ALT (12-78) U/L Alkaline Phosphatase Total Protein Albumin (3.4-5.0) gm/dl Globulin Albumin/Globulin Ratio Urine Color Yellow Urine Appearance Clear (Clear) Urine pH 6.5 (4.5-7.5) Ur Specific [place] 1.021 (1.000-1.030) Urine Protein Negative (Negative) Urine Glucose (UA) Negative (Negative) Urine Ketones Negative (Negative) Urine Blood 1+ H (Negative) Urine Nitrite Negative (Negative) Urine Bilirubin Negative (Negative) Urine Urobilinogen Negative (Negative) Ur Leukocyte Esterase Trace H (Negative) Urine WBC (Auto) 1-5 (0-5) /hpf Urine RBC (Auto) 5-10 H (0-4) /hpf U Hyaline Cast (Auto) 1-5 (0-5) /lpf U Epithel Cells (Auto) >30 H (0-5) /lpf Urine Bacteria (Auto) Negative (Negative) POC Ur Test NEG (NEG) C.trachomatis RNA Pending N.gonorrhoeae RNA Pending Specimen Comment Pending
[2019-09-04] MEDS: ONDANSETRON INJ 2 MG/ML 2 ML VIAL IV PRN ×2 (09:09→19:21)
[2019-09-04] MEDS ORDERED: IOVERSOL 100ml IV PRN (10:11)
--- NOTE | 2019-09-04 10:22 | CT Scan Report ---
CT abd pelvis oral and IV con CLINICAL HISTORY: 44 years-old Female presenting with pain persists, reevaluate and compare. TECHNIQUE: Multidetector CT of the abdomen and pelvis was performed after the administration of oral and intravenous contrast. IV contrast: 94 is of Optiray 320. One or more dose lowering techniques wer e used consistent with the principles of ALARA (as low as reasonably achievable), including automatic exposure control, mA or kV adjustment to individual patient size, and/or use of iterative reconstruc tion. COMPARISON: 09/03/2019. CT DOSE (mGy.cm): The estimated cumulative dose is 553.85 mGy.cm. FINDINGS: Agricultural Education Instructor topogram: Unremarkable. Lung bases: Normal heart size. No pericardial or pleural effusion. Minimal dependent changes likely a telectasis. Liver: Normal morphology. No liver lesion. Patent hepatic vasculature. Biliary: No intrahepatic or extrahepatic biliary ductal dilatation. Gallbladder contains gallstones. Pancreas: Normal. Spleen: Normal. Adrenal glands: Normal. Kidneys and ureters: Nonobstructing punctate calculus in the left kidney. Normal renal parenchyma. No hydronephrosis. Ureters nondistended. Bladder: Incompletely evaluated secondary to underdistention. Pelvic organs: Prominent fibroid with a dominant submucosal component evident. This results in slight enlargement of the uterus. An IUD is not present on the current exam with interval removal. Strandin g in the right adnexa along the right gonadal vessels is evident, slightly increased from prior. The gonadal vein on the right appears patent. No evidence of a torsed morphology of the vessels. Right ov hema dominant follicle may be present. Bowel: Normal appendix. No bowel obstruction. Peritoneal cavity: Trace free fluid in the pelvis. No free intraperitoneal gas. Lymph nodes: Few subcentimeter though prominent pericaval lymph nodes tracking along the canal vessel s on the right. Vasculature: Aorta and IVC patent and normal in caliber. Abdominal wall: Normal. Musculoskeletal: Normal. IMPRESSION: 1. Mild edema/inflammatory change along the right gonadal vessels into the right adnexa. This is non specific. No CT evidence of torsion or tubo-ovarian abscess. Please ensure the absence of symptomatol ogy or gynecologic exam findings that could indicate pelvic inflammatory disease. 2. Interval removal of the IUD. 3. No appendicitis. 4. Nonobstructing punctate left nephrolithiasis. 5. Cholelithiasis. ACT 112: Negative or not required by law. Electronically signed by: Silas Landeros M.D. 09/04/2019 10:20 AM
[2019-09-04 11:35] LABS: Chlamydia Trach RNA NOT DETECTED (NOT DETECTED); GC (Neis gonorrhoeae) RNA NOT DETECTED (NOT DETECTED)
[2019-09-04] MEDS: MULTIVITAMIN TAB PO SCH (14:35)
--- NOTE | 2019-09-04 16:43 | Hospitalist Progress Note ---
Date of Service September 04, 2019 Assessment & Plan (1) Pain in female pelvis: Thought to be due to appendix initially, though repeat CT a/p on 09/04 does not show any inflammation. Right ovary has some non-specific fluid on it. - Continue abx - Discuss with surgery and set and exhibit designer to consider next steps. - Consider repeat TV U/S if set and exhibit designer feels this is appropriate. - Will get blood cultures (2) Abdominal pain: As the above. (3) Psoriatic arthritis: Patient does not appear to be in a flare. - Hold adalimumab for now. - Continue home medicine clobetasol ointment topical as needed (4) DVT prophylaxis: SCDs - Low DVT risk per admission calculator Subjective Still with RLQ pain. She is still having some fevers as well. She denies any diarrhea or vomiting. Some nausea with the pain. Reports no fevers/chills, chest pain, shortness of breath. Physical Exam Constitutional: WD/WN, vitals as above Eyes: EOM intact bilaterally; no conjunctival abnormality ENMT: external ear and nose normal, oropharynx normal Neck: trachea midline, no thyromegaly normal visual inspection Respiratory: normal respiratory effort, lungs clear to auscultation no respiratory distress Cardiovascular: RRR, no murmur, no edema Gastrointestinal (Abdomen): Inspection/Auscultation: abdomen normal to inspection; abdomen not distended Percussion/Palpation: + abdomen tender (RLQ) and abdomen soft; no guarding and abdomen not rigid Musculoskeletal: no cyanosis or clubbing, extremities motor strength 5/5 Skin: no rashes, warm and dry Neurologic: moves all extremities and awake Psychiatric: Orientation: alert, oriented to person and cooperative Results & Data Vital Signs (Past 12 Hours) Vital Signs Temp Pulse Resp BP Pulse Ox 09/04/19 15:08 37.7 C H 84 18 114/73 97 09/04/19 07:10 37.0 C 86 16 97/62 L 96 PG Care Time/CCT Total # of Minutes Spent Total Time Spent with Patient: Total time spent is greater than 50% in coordination of care (as documented) at patient's floor/unit and/or counseling patient:
[2019-09-04] MEDS: ACETAMINOPHEN 325 MG TAB PO PRN (19:21)
[2019-09-05] MEDS: cefOXitin 2,000 MG/60 ML BAG IV SCH ×2 (01:34→13:12)
[2019-09-05] MEDS: ACETAMINOPHEN 325 MG TAB PO PRN (05:01)
[2019-09-05 06:17] LABS: Basophils # (auto) 0.02 K/uL (0-0.2); Basophils % (auto) 0.2 %; Eosinophils # (auto) 0.16 K/uL (0-0.5); Eosinophils % (auto) 1.5 %; Hematocrit (blood only) 36.3 % (37-47); Hemoglobin 12.1 g/dL (12.0-16.0); Immature Granulocytes # (auto) 0.02 K/uL (0.00-0.02); Immature Granulocytes % (auto) 0.2 %; Lymphocytes % (auto) 15.6 %; Mean Corpuscular Hemoglobin 30.4 pg (25-34); Mean Corpuscular Hgb Conc 33.3 g/dL (32-36); Mean Corpuscular Volume 91.2 fL (80-100); Mean Platelet Volume 10.9 fL (7.4-10.4); Monocytes # (auto) 1.32 K/uL (0.11-0.59); Monocytes % (auto) 12.1 %; Neutrophils # (auto) 7.65 K/uL (1.4-6.5); Neutrophils % (auto) 70.4 %; Platelet Count 196 K/uL (130-400); RDW Standard Deviation 43.4 fL (36.4-46.3); Red Blood Count 3.98 M/uL (4.2-5.4); White Blood Count 10.87 K/uL (4.8-10.8)
[2019-09-05 06:52] LABS: Albumin Level 3.3 gm/dl (3.4-5.0); BUN Creatinine Ratio 10.4 (10-20); Creatinine Clr Calc Pharmacy 97.2 ml/min; Est GFR (African American) 99.4; Est GFR (Non-African American) 85.8; Potassium 3.8 mmol/L (3.5-5.1)
[2019-09-05 06:55] LABS: Albumin Globulin Ratio 0.9 (0.9-2); Bilirubin,Total 0.4 mg/dl (0.2-1); Globulin 3.6 gm/dl (2.5-4.0); Total Protein 6.9 gm/dl (6.4-8.2)
--- NOTE | 2019-09-05 08:09 | Gynecologic Progress Note ---
Date of Service September 05, 2019 Assessment & Plan (1) Pain in female pelvis: (2) Abdominal pain: her pain has improved and fever curve has improved. unclear airplane mechanic source of pain but rec repeat pelvic u/s this am. no adnexal masses to justify cause of pain related to torsion and no suspicion of peduculated fibroid on multiple prior u/s, so really difficult to know why pain presented with acute onset pain. irregular bleeding could just be from removal of iud but still strange, it has relieved her pain she believes, ie. onset of bleeding. her menorrhagia history will require her to followup for plan for mgmt. for now will see if us yielding and plan watching temp curve and readdress her status this pm. this pt was discussed with Dr. Foster who is oncoming airplane mechanic and i did call Dr. Tran her daytime hospitalist this morning about our collaborative thoughts on this patient. Subjective doing better this am, says her pain is much less in right lower quadrant, 2/10. Did not take pain killers overnight. I obtained her history again. notes was not getting regular airplane mechanic care but came to our office in this past month due to menorrhagia, bleeding monthly x7d but heavy, soaking pad and tampon on day 1-2, where she had to leave meetings. Had us and showed fibroids, 3 measurable and ? IC fibroid so had saline HS that showed normal cavity and therefore candidacy for mirena iud. Was placed monday in our office and says she thinks insertion was difficult but completed and left office going back to work and feeling fine until middle of night mon into . Woke up with chills and sudden onset rlq pain, given her immunosuppression on her humira due to RA, her brought her to the ER. She did not precede this episode with n/v/d, no uri sx, no bowel or bladder change--just woke up with sudden pain and shaking chills. The day of her IUD insertion was the tail end of her 7d period. She came to ER and admitted with elevated WBC and rolling fevers and rlq pain, initially suspicious for appy but on f/u imaging appendix not suspicious. MANAGER MEDICAL DEVICE u/s with nl ovaries, fibroids and iud correctly located but ultimately iud removed by Dr. Biggs to see if helped pt pain. Pt states again no pain with exam or removal of iud by Dr. Biggs. RNA probe neg. She is low risk for pid and in fact no pain with pelvic exam at all per pt and see Dr. Biggs notes. Yesterday Dr. Holbrook and Dr. Tran spoke to me about the patient so I was aware of her continued story. She has been on IV abx as well. Yesterday afternoon began with vaginal bleeding which she thought was strange, not as heavy as her typical period but coming out on pads, and that seemed to relieve her pain. This am still with vaginal bleeding and pain lessened as noted above. No significant temp for >24hr per pt. Review of Systems Constitutional: no fever and no body aches Gastrointestinal: + vomiting (yesterday at noon after drinking contrast, none since, only allowed clears) and + constipation (no bowel mvmt since monday but says hasn't really eaten) Genitourinary: no dysuria and no urinary frequency Neurologic: grossly normal Physical Exam Constitutional: WD/WN, vitals as above Gastrointestinal (Abdomen): Inspection/Auscultation: abdomen not distended Percussion/Palpation: + abdomen tender (mildly tender right lower quad but also diffuse) and abdomen soft; no guarding and abdomen not rigid Neurologic: grossly normal Psychiatric: A+Ox3, euthymic affect Genitourinary: no CVA tenderness Results & Data Vital Signs (Past 12 Hours) Vital Signs Temp Pulse Resp BP Pulse Ox 09/04/19 23:01 98.2 F 77 16 108/70 97 PG Care Time/CCT Total # of Minutes Spent Total Time Spent: 25 Total Time Spent with Patient: Total time spent is greater than 50% in coordination of care (as documented) at patient's floor/unit and/or counseling patient: (1) Abdominal pain Abdominal location: right lower quadrant Qualified Code(s): R10.31 - Right lower quadrant pain
--- NOTE | 2019-09-05 09:25 | Surgery Progress Note ---
Date of Service September 05, 2019 Assessment & Plan (1) Abdominal pain: Pain has decreased. 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 She began to have vaginal bleeding and seems to connect the onset of the vaginal bleeding with the decrease in the abdominal discomfort. She has no nausea and has not vomited. She had an episode of vomiting after some broth yesterday but that was also following consumption of the 2 large containers of oral contrast. She has not had any nausea since. Physical Exam Gastrointestinal (Abdomen): Inspection/Auscultation: abdomen normal to inspection and normal bowel sounds; abdomen not distended Percussion/Palpation: + abdomen tender (Much less so) and abdomen soft Results & Data Vital Signs (Past 12 Hours) Vital Signs Temp Pulse Resp BP Pulse Ox 09/04/19 23:01 36.8 C 77 16 108/70 97 Laboratory Results 09/05/19 09/05/19 09/03/19 Range/Units 05:59 05:59 11:50 WBC 10.87 H (4.8-10.8) K/uL RBC 3.98 L (4.2-5.4) M/uL Hgb 12.1 (12.0-16.0) g/dL Hct 36.3 L (37-47) % MCV 91.2 (80-100) fL MCH 30.4 (25-34) pg MCHC 33.3 (32-36) g/dL RDW Std Deviation 43.4 (36.4-46.3) fL RDW Coeff of Leticia 13.0 (11.5-14.5) % Plt Count 196 (130-400) K/uL MPV 10.9 H (7.4-10.4) fL Immature Gran % (Auto) 0.2 % Neut % (Auto) 70.4 % Lymph % (Auto) 15.6 % [place] % (Auto) 12.1 % Eos % (Auto) 1.5 % Baso % (Auto) 0.2 % Immature Gran # (Auto) 0.02 (0.00-0.02) K/uL Neut # (Auto) 7.65 H (1.4-6.5) K/uL Lymph # (Auto) 1.70 (1.2-3.4) K/uL [place] # (Auto) 1.32 H (0.11-0.59) K/uL Eos # (Auto) 0.16 (0-0.5) K/uL Baso # (Auto) 0.02 (0-0.2) K/uL Sodium 137 (136-145) mmol/L Potassium 3.8 (3.5-5.1) mmol/L Chloride 105 (98-107) mmol/L Carbon Dioxide 27 (21-32) mmol/L Anion Gap 5.0 (3-11) BUN 9 (7-18) mg/dl Creatinine 0.83 (0.6-1.2) mg/dl Est Cr Clr Drug Dosing 97.2 ml/min Est GFR ( Amer) 99.4 Est GFR (Non-Af Amer) 85.8 BUN/Creatinine Ratio 10.4 (10-20) Glucose 101 H (70-99) mg/dl Calcium 9.0 (8.5-10.1) mg/dl Total Bilirubin 0.4 (0.2-1) mg/dl AST 8 L (15-37) U/L ALT 18 (12-78) U/L Alkaline Phosphatase 40 L (45-117) U/L Total Protein 6.9 (6.4-8.2) gm/dl Albumin 3.3 L (3.4-5.0) gm/dl Globulin 3.6 (2.5-4.0) gm/dl Albumin/Globulin Ratio 0.9 (0.9-2) C.trachomatis RNA NOT DETECTED (NOT DETECTED) N.gonorrhoeae RNA NOT DETECTED (NOT DETECTED) Specimen Comment SEE NOTE (1) Abdominal pain Abdominal location: right lower quadrant Qualified Code(s): R10.31 - Right lower quadrant pain
--- NOTE | 2019-09-05 11:50 | Ultrasound Report ---
EXAMINATION: PELVIC ULTRASOUND (transabdominal and endovaginal scanning) CLINICAL HISTORY: Pelvic pain. ELEVATED WHITE COUNT. COMPARISON STUDY: CT scan dated 09/04/2019, pelvic ultrasound dated 09/03/2019 FINDINGS: Following transabdominal scanning, endovaginal scanning was performed to better evaluate adnexal stru ctures. The uterus measured 8.1 x 6 x 5.7 cm. There is been interval removal of the IUD. Multiple uterine fib roids are again visualized, the largest of which measures 4.9 cm.. The endometrial stripe measured 9 mm.. There is a 6 mm submucosal fundal fibroid versus polyp. The right ovary measured 35 x 18 x 24 mm. The left ovary measured 27 x 16 x 19 mm.. There is no ultrasonographic evidence of ovarian torsion. It should be noted that ovarian torsion can be present with normal Doppler ultrasonographic findings. There is minimally echogenic free fluid within the cul-de-sac. There is an adjacent somewhat tubular density. In addition there is a small shadowing 7 mm echogenic focus within the fluid likely calcific . The etiology of the somewhat tubular structure is not known. This could represent a thick-walled fa llopian tube. This is unlikely represent appendix as a normal-appearing appendix was visualized on th e CT scan performed the day prior. IMPRESSION: 1. Interval removal of the IUD 2. Multiple uterine fibroids the largest of which measured 4.9 cm 3. 6 mm submucosal fundal fibroid versus polyp 4. No ovarian lesions identified 5. Mildly complex free pelvic fluid containing an apparent 6 mm shadowing density. There is adjacent nonspecific thick-walled tubular structure. This is unlikely to represent the appendix is a normal-ap pearing appendix was visualized on the CT scan performed the day prior. This could represent a thick- walled fallopian tube. Clinical correlation is advocated ACT 112: Negative or not required by law. Electronically signed by: Marc Craig M.D. 09/05/2019 11:49 AM
[2019-09-05] MEDS: MULTIVITAMIN TAB PO SCH (13:12)
--- NOTE | 2019-09-05 13:18 | Gynecologic Progress Note ---
Date of Service September 05, 2019 Subjective Upon my visit to the patient in her room today, she sitting up in bed, eating a full lunch. She states she feels much better. She is tolerating p.o. without nausea or vomiting. She is still reporting vaginal bleeding, with changing a pad every few hours, slightly larger clots than typical. She states her menstrual cycle started 08/26/2019, and she usually bleeds for 7 days. Her cycles have been approximately 22 days apart. Her physical exam reveals a benign abdomen, nondistended, with some mild tenderness to palpation in the right lower quadrant. No guarding. We reviewed the ultrasound results from today, showing: No ovarian lesions identified, no ultrasound evidence of ovarian torsion. It was mildly complex free pelvic fluid with an adjacent nonspecific thick-walled structure. CT scan from yesterday showed a right dominant follicle. In review of her labs, her white blood cell count has trended down from its highest on 09/03/2019 at 21.75 to 10.87 today. Her hemoglobin is stable at 12.1. Electrolytes and liver enzymes are normal. Her gonorrhea and chlamydia swab was negative. In review of her vital signs, she has been afebrile since just after midnight 09/04/2019. She was initially tachycardic, her pulse is now 77. I discussed with her that we still do not really have an exact etiology of her pain and fever and elevated white blood count. However, my differential includes possible endometritis after the insertion of the IUD. While she had no uterine tenderness on physical exam, the symptoms seemed to arise quickly after the insertion of the IUD and responded well to antibiotics. She has not needed pain medications overnight or today, and is feeling much better, and therefore I do not think she has an acute process. It is possible she has a short ovulatory cycle, with the dominant follicle seen on yesterday's CT now rupturing today and causing the appearance of free fluid in the pelvis. I discussed with patient that this may or may not be contributing to her symptoms, but could potentially explain today's ultrasound findings. Given that she has noticed marked improvement in her pain and symptoms, I think it is reasonable to discharge home with the plan to follow up in the office this week for further management plans of her bleeding. She is aware that if she develops a return of the pain, fever signs/symptoms, or any other worsening symptoms, she is to return immediately. Offered Aygestin taper to help with vaginal bleeding, and this Rx was sent to her pharmacy on file. I gave her the OK to use tampons, as long as this is not painful. I discussed the above with Dr Tran, and suggested that since antibiotics helped her symptoms, this would support a diagnosis of endometritis, and would recommend an outpatient course of antibiotics - doxycycline 100mg BID x 7d. Upon my visit to the patient in her room today, she sitting up in bed, eating a full lunch. She states she feels much better. She is tolerating p.o. without nausea or vomiting. She is still reporting vaginal bleeding, with changing a pad every few hours, slightly larger clots than typical. She states her menstrual cycle started 08/26/2019, and she usually bleeds for 7 days. Her cycles have been approximately 22 days apart. Her physical exam reveals a benign abdomen, nondistended, with some mild tenderness to palpation in the right lower quadrant. No guarding. We reviewed the ultrasound results from today, showing: No ovarian lesions identified, no ultrasound evidence of ovarian torsion. It was mildly complex free pelvic fluid with an adjacent nonspecific thick-walled structure. CT scan from yesterday showed a right dominant follicle. In review of her labs, her white blood cell count has trended down from its highest on 09/03/2019 at 21.75 to 10.87 today. Her hemoglobin is stable at 12.1. Electrolytes and liver enzymes are normal. Her gonorrhea and chlamydia swab was negative. In review of her vital signs, she has been afebrile since just after midnight 09/04/2019. She was initially tachycardic, her pulse is now 77. I discussed with her that we still do not really have an exact etiology of her pain and fever and elevated white blood count. However, my differential includes possible endometritis after the insertion of the IUD. While she had no uterine tenderness on physical exam, the symptoms seemed to arise quickly after the insertion of the IUD and responded well to antibiotics.
--- NOTE | 2019-09-05 17:34 | Discharge Summary ---
Date of Service September 05, 2019 Admission HPI Per Admitting Provider Patient is a 44 years old female with past medical history of rheumatoid arthritis and uterine fibroids who presented to the emergency room with a complaint of lower right-sided abdominal pain that started last night and continued in the morning which she describes as throbbing. She reports having Mirena IUD placed yesterday for uterine fibroids and because her menstrual periods were very heavy, by Dr. Mao. This morning when she arrived to the emergency room decision was made to remove IUD which patient said that it was not painful at all. This did not help with the patient pain. Patient reports pain after removal of IUD. Patient is mother of 2 and had normal vaginal delivery so far. Patient never had any procedure done in her genitourinary system except for placement of IUD. Patient denies previous STDs or any kind of infection ongoing. Patient is in stable marriage. Patient denies fever, chills, chest pain, shortness of breath, frequency, urgency. Labs are reviewed: WBC is 18.93, hemoglobin 13.4, hematocrit 40.2, platelets 246, sodium 135, potassium 3.7, BUN 17, creatinine 1.06, GFR 63.8, lipase 108, AST 11, ALT 28, urine is yellow clear with 1+ blood, negative for nitrates, Leukocyte esterase trace. GC chlamydia and gonorrhea pending. Patient denies herpes virus infection. CT abdomen pelvis shows no evidence of bowel obstruction. No evidence of free air. Cholelithiasis. Fibroid uterus. Indwelling IUD(this was before removal) no evidence of acute diverticulitis. The appendix is difficult to visualize but a short mildly dilated appendix is suspected. There are no guido-appendiceal inflammation changes and this finding may represent a normal variant. Transvaginal sonogram is characteristic for fibroid uterus. The largest fibroid mass is 5 cm. Indwelling IUD. The endometrial cavity is distorted by the large fibroid. No ovarian abnormality identified. Decision was made to admit patient to [facility] for observation and possible surgical treatment of appendectomy if abdominal pain does not improve and if white blood cell count continues to rise. This case was just cussed with general surgery Dr. Holbrook. Principal Diagnosis Possible endometriosis Discharge Exam Constitutional WD/WN, vitals as above Eyes EOM intact bilaterally; no conjunctival abnormality ENMT external ear and nose normal, oropharynx normal Neck trachea midline, no thyromegaly normal visual inspection Respiratory normal respiratory effort, lungs clear to auscultation no respiratory distress Cardiovascular RRR, no murmur, no edema Gastrointestinal (Abdomen) Inspection/Auscultation: abdomen normal to inspection; abdomen not distended Percussion/Palpation: + abdomen tender (RLQ) and abdomen soft; no guarding and abdomen not rigid Musculoskeletal no cyanosis or clubbing, extremities motor strength 5/5 Skin no rashes, warm and dry Neurologic moves all extremities and awake Psychiatric Orientation: alert, oriented to person and cooperative Discharge Data Allergies Allergy/AdvReac Type Severity Reaction Status Date / Time No Known Allergies Allergy Unverified 09/03/19 06:33 Consultations 09/03/19 09:50 Consult General Surgery Stat 09/03/19 11:15 Consult Obstetrics Stat 09/03/19 11:53 ED Decision to Admit Stat 09/03/19 16:32 Consult General Surgery Stat Ordered Studies 09/03/19 06:23 US pelvic complete Stat 09/03/19 06:24 US transvaginal Stat 09/03/19 08:18 CT abd pelvis IV con only Stat 09/04/19 07:06 CT abd pelvis oral and IV con Urgent 09/05/19 08:09 US pelvic complete Urgent US transvaginal Urgent Hospital Course (1) Pain in female pelvis: Thought to be due to appendix initially, though repeat CT a/p on 09/04 did not show any inflammation. Right ovary has some non-specific fluid on it. - Repeat transvaginal ultrasound showed the right ovary follicle gone and a non- specific tubular structure which might have been a Fallopian tube. - Discussed extensively with nuclear physics professor -> Will treat for possible endometritis with doxy x 7 more days. Will see nuclear physics professor next week. - Follow cooking blood cultures. If positive, will call the patient back. (2) Abdominal pain: As the above. (3) Psoriatic arthritis: Patient does not appear to be in a flare. - Held adalimumab while admitted. Restart on discharge. - Continue home medicine clobetasol ointment topical as needed (4) DVT prophylaxis: SCDs - Low DVT risk per admission calculator Total Time Total Time Spent Total Time Spent (In Minutes): 35 Discharge Plan Discharge Items Patient Disposition: Home - Self-Care Reason For Visit: ABDOMINAL PAIN Discharge Diagnosis: Possible endometritis with likely ovulation Activity: Resume your previous activity Non-emergency contact: Primary Care Provider and Gasoline Catalyst Operator Call non-emergency contact if: your symptoms worsen, your pain is worsening, your pain is unusual for you and your temperature is above 101 Follow-up/Referrals: Enma Biggs MD, FACOG [Physician] - (Please see any of the nuclear physics professor doctors that you saw during your hospital stay next week. Dr. Biggs, Dr. Almaraz, Dr. Sheridan, or Dr. Foster.) Cole Coppola PA-C [Primary Care Provider] - Diet: Regular Addtl Attending Provider Instructions: You were admitted to the hospital with fevers and right lower abdominal pain. Over the course of 3 days, you improved and are now overall feeling quite well. While here, we did lots of imaging that indicated some inflammation of the right ovary; however, we did not see any clear sign of torsion or an infection in the ovary. It's possible that you ovulated (a follicle was seen on the initial imaging, then not on the later ultrasound) which may have worsened the pain, but we do not think was entirely the issue. Dr. Foster felt that a course of antibiotics for possible endometritis could be beneficial. We will give you another 7 days of doxycycline to cover the most common endometritis bacteria. We will monitor your blood cultures for another 4 days to be sure they remain negative. Please take your first doxycycline tablet tonight before bed, then 2 times per day until they are gone. Please follow up with the nuclear physics professor group next week. If you have further fevers, worsening pain, nausea, vomiting, or other concerning symptoms, please call their office or return to the hospital. Pending Studies at Discharge: No Stand-Alone Forms: [facility] [employer] [facility], Smoking Cessation Medications and DC Order Prescriptions: New norethindrone acetate [Aygestin] 5 mg tablet See Rx Instructions .ROUTE .COMPLEX PRN (Reason: vaginal bleeding) 21 Days Qty: 46 RF: 0 doxycycline hyclate 100 mg tablet 100 mg PO BID 7 Days Qty: 14 RF: 0 Continued clobetasol 0.05 % cream See Rx Instructions TOP .COMPLEX PRN (Reason: Unknown) RF: 0 clobetasol 0.05 % foam See Rx Instructions TOP .COMPLEX PRN (Reason: Unknown) RF: 0 multivitamin [Daily Multi-Vitamin] tablet 1 tab PO DAILY RF: 0 Humira Pen 40 mg/0.8 mL pen injector kit 40 mg SUBCUT UD RF: 0 Discharge Orders: Discharge Order (Routine); Ordered 09/05/19 Ordered By: Jerry Tran Admission Data Admit Date/Time: 09/03/19 14:47 Attending Provider: Jerry Tran Admit Provider: Silvio Salinas Primary Care Provider: Cole Coppola Other Providers: Neri Holbrook ; Enma Biggs ; Jerry Tran Other Interventions: Discharge Summary Assessment (RN) Last Done: 09/05/19 14:04 DC Date/Time DO NOT enter until pt leaves facility: 09/05/19 14:55
== END 2019-09-05 14:55 | disposition home or self-care (01) ==
LOC: ED 05:52 → 3N 05:52 → SUATTDRO 14:47 → 3N 16:33

== ENCOUNTER 2020-01-27 07:51 | Observation (INO) ==
--- NOTE | 2020-01-14 10:00 | PAT Medication Instructions ---
Medication Instructions Date of Service January 14, 2020 Home Medications multivitamin 1 tab PO DAILY clobetasol 0.05 % topical cream See Rx Instructions TOP .COMPLEX PRN clobetasol 0.05 % topical foam See Rx Instructions TOP .COMPLEX PRN Humira Pen 40 mg SUBCUT UD ascorbic acid (vitamin C) [Vitamin C] 500 mg PO DAILY cetirizine [Zyrtec] 10 mg PO QPM ASK your prescriber and surgeon Humira Pen 40 mg SUBCUT UD STOP taking 24 hours before surgery clobetasol 0.05 % topical cream See Rx Instructions TOP .COMPLEX PRN clobetasol 0.05 % topical foam See Rx Instructions TOP .COMPLEX PRN DO NOT take the morning of surgery multivitamin 1 tab PO DAILY ascorbic acid (vitamin C) [Vitamin C] 500 mg PO DAILY Take evening before surgery cetirizine [Zyrtec] 10 mg PO QPM Other Notes If you have any questions please call us at [phone] or [phone] or [phone] or [phone]
--- NOTE | 2020-01-16 10:42 | Anesthesiology Consultation ---
Date of Service January 16, 2020 Assessment & Plan (1) Encounter for pre-operative examination: Per PAT assessment on 01/15: Travel screen- Patient [place] at [place] [facility]. No known COVID positive contacts. No history of COVID testing. No current COVID related symptoms. Wears mask with local activity/grocery shopping/practicing social distancing. - Check test AM DOS Chart Review Chart Review: Acceptable Risk for Surgery and Patient seen in Pre Admission Testing Teaching & Discussion Pre-Anesthesia Teaching/Discussion Notes: Instructed NPO after midnight before surgery,except medications with 15 cc of water. Medication instructions pro vided according to the PAT guidelines. History Surgery Operation Date: 01/27/20 07:30 Proposed Procedures p Robotic Total Laparoscopic Hysterectomy - Enma Biggs MD, FACOG Height/Weight Height: 5 ft 7.75 in Weight: 88.6 kg Allergies Allergy/AdvReac Type Severity Reaction Status Date / Time No Known Allergies Allergy Verified 01/09/20 13:00 Medications Home Medications Medication Instructions Recorded Confirmed Last Taken multivitamin 1 tab PO DAILY 07/10/19 01/09/20 Unknown clobetasol 0.05 % topical cream See Rx Instructions TOP .COMPLEX 08/30/19 Unknown PRN clobetasol 0.05 % topical foam See Rx Instructions TOP .COMPLEX 08/30/1901/08 Unknown PRN Humira Pen 40 mg SUBCUT UD 09/03/19 01/09/20 Unknown ascorbic acid (vitamin C) [Vitamin 500 mg PO DAILY 01/09/20 01/09/20 Unknown C] cetirizine [Zyrtec] 10 mg PO QPM 01/09/20 01/09/20 Unknown Past Medical History Medical History Psoriatic arthritis on Humira Uterine fibroid Exercise / Class Metabolic Activity II 4-5 Yardwork/Stairs/Walk up hill Past Family History Family History Father Diabetes Mother Diabetes Other No family history of adverse response to anesthesia Denies family history of Ovarian cancer Breast cancer Colorectal cancer Past Surgical History Surgical History [place] teeth removed Past Anesthesia History No Hx of Anesthesia Complications (except PONV*) and No Family Hx of Anesthesia Complications (except mother "slow to wake") History of PONV No Hx of Motion Sickness and History of PONV Social History Smoking Status: Never smoker Do You Dip or Chew Tobacco: No Hx Alcohol Use: Yes Alcohol type: wine and hard liquor alcohol intake frequency: a few times a week Hx Substance Use: No substance use type: does not use Review of Systems Patient denies chest pain, shortness of breath, dyspnea on exertion, fever, chills, cough, wheezing, palpitations. Physical Exam PHYSICAL Full neck and c-spine range of motion. Full TMJ range of motion. TMD 3.5 finger breaths Mallampati Score 3 Dentition: intact Lungs: clear throughout to auscultation Cardiac: regular rate and rhythm, no murmurs noted Spine: normal Extremities: no edema Testing Laboratory Results 01/16/20 10:59 Blood Type A Positive 01/16/20 10:59 Antibody Screen NEGATIVE 01/16/20 10:59
[2020-01-16 12:21] LABS: Basophils # (auto) 0.04 K/uL (0-0.2); Basophils % (auto) 0.5 %; Eosinophils # (auto) 0.19 K/uL (0-0.5); Eosinophils % (auto) 2.4 %; Hematocrit (blood only) 42.5 % (37-47); Hemoglobin 14.3 g/dL (12.0-16.0); Immature Granulocytes # (auto) 0.02 K/uL (0.00-0.02); Immature Granulocytes % (auto) 0.3 %; Lymphocytes # (auto) 2.68 K/uL (1.2-3.4); Lymphocytes % (auto) 34.4 %; Mean Corpuscular Hemoglobin 29.9 pg (25-34); Mean Corpuscular Hgb Conc 33.6 g/dL (32-36); Mean Corpuscular Volume 88.9 fL (80-100); Mean Platelet Volume 11.6 fL (7.4-10.4); Monocytes # (auto) 0.78 K/uL (0.11-0.59); Neutrophils # (auto) 4.09 K/uL (1.4-6.5); Neutrophils % (auto) 52.4 %; Platelet Count 262 K/uL (130-400); RDW Standard Deviation 42.5 fL (36.4-46.3); Red Blood Count 4.78 M/uL (4.2-5.4)
[~2020-01-27 07:51] MED LIST: ACETAMINOPHEN 1000 MG/100 ML IV IV ONE; CEFAZOLIN 2000MG 2,000 MG/15 ML SYR IV SCH; LACTATED RINGER'S 1,000 ML IV SCH; LR 15ML/HR IV SCH
--- NOTE | 2020-01-27 08:39 | History & Physical Bridge Note ---
Date of Service January 27, 2020 History & Physical Bridge Note I have examined the patient, reviewed the History & Physical and in the interval since the performance of the History & Physical I have noted the following changes of clinical significance: no changes noted
[2020-01-27] MEDS ORDERED: PROPOFOL IV EMULSION 10 MG/ML 20 ML VIAL IV ONE (08:46)
[2020-01-27] MEDS ORDERED: ROCURONIUM BROMIDE 10 MG/ML 5 ML VIAL ONE (08:46)
[2020-01-27] MEDS ORDERED: LIDOCAINE HCL 2% 2 ML VIAL/AMP(20MG/ML) INFIL ONE (08:46)
[2020-01-27] MEDS ORDERED: DEXAMETHASONE SOD INJ 4 MG/ML VIAL ONE (08:47)
[2020-01-27] MEDS ORDERED: ONDANSETRON INJ 2 MG/ML 2 ML VIAL ONE (08:47)
[2020-01-27] MEDS ORDERED: fentaNYL citrate 100 MCG/2 ML VIAL ONE ×5 (08:47→14:19)
[2020-01-27] MEDS ORDERED: MIDAZOLAM HCL 1 MG/ML 2ML VIAL ONE (08:47)
[2020-01-27 08:59] LABS: Basophils # (auto) 0.05 K/uL (0-0.2); Basophils % (auto) 0.7 %; Eosinophils % (auto) 2.8 %; Hematocrit (blood only) 41.1 % (37-47); Hemoglobin 13.6 g/dL (12.0-16.0); Immature Granulocytes # (auto) 0.01 K/uL (0.00-0.02); Immature Granulocytes % (auto) 0.1 %; Lymphocytes % (auto) 35.5 %; Mean Corpuscular Hemoglobin 29.8 pg (25-34); Mean Corpuscular Volume 89.9 fL (80-100); Monocytes # (auto) 0.69 K/uL (0.11-0.59); Monocytes % (auto) 9.8 %; Neutrophils % (auto) 51.1 %; Platelet Count 223 K/uL (130-400); RDW Coefficient of Variation 13.1 % (11.5-14.5); RDW Standard Deviation 42.8 fL (36.4-46.3); Red Blood Count 4.57 M/uL (4.2-5.4); White Blood Count 7.05 K/uL (4.8-10.8)
[2020-01-27 09:34] LABS: BUN Creatinine Ratio 11.2 (10-20); Calcium 8.8 mg/dl (8.5-10.1); Creatinine Clr Calc Pharmacy 85.7 ml/min; Est GFR (African American) 81.3; Est GFR (Non-African American) 70.2; Potassium 3.6 mmol/L (3.5-5.1)
[2020-01-27] MEDS ORDERED: ePHEDrine sulfate 50 MG/ML AMP IV PRN (09:34)
[2020-01-27] MEDS ORDERED: ATROPINE SULFATE 0.1 MG/ML 10ML SYR IV PRN (09:34)
[2020-01-27] MEDS ORDERED: HYDROmorphone INJ 2 MG/ML SYR/VIAL IV PRN (09:35)
[2020-01-27] MEDS ORDERED: ONDANSETRON INJ 2 MG/ML 2 ML VIAL IV PRN ×2 (09:35→14:39)
[2020-01-27 09:42] LABS: Mean Corpuscular Hgb Conc 33.1 g/dL (32-36)
[2020-01-27] MEDS ORDERED: BUPIVACAINE 0.5 % 5 MG/1 ML MPF 30ML VIAL ONE (09:55)
[2020-01-27] MEDS ORDERED: METHYLENE BLUE 0.5% 10 ML VIAL ONE (09:55)
[2020-01-27] MEDS ORDERED: KETOROLAC 30 MG/ML VIAL ONE (12:39)
--- NOTE | 2020-01-27 12:47 | Operative Report ---
PG Post Operative Report Pre & Post Diagnosis Operation Date: 01/27/20 09:30 Pre-Op Diagnosis: Menorrhagia, Leiomyoma, Pelvic Pain Post-Op Diagnosis: Menorrhagia, Leiomyoma, Pelvic Pain I identified the patient and participated in the time-out.: Yes Procedure Operation Date: 01/27/20 09:30 Actual Procedures p Robotic Total Laparoscopic Hysterectomy(Not Applicable) - Enma Biggs MD, FACOG Surgeon Enma Biggs MD, FACOG Warp Hand none Estimated Blood Loss 15 Findings Consistent with Post-Op Diagnosis Specimens uterus, bilateral fallopian tubes Description of Procedure Patient was given a general anesthetic, prepped and draped in dorsal lithotomy position in yellow fin derek stirrups. Care was taken to position the legs and arms properly with no excess pressure on any area. Pre-operative antibiotics were given and SCDs applied earlier. Riley catheter was inserted into her bladder, V-Care manipluator was placed in the uterus and sutured in place. Gloves were changed and then a supra-umbilical incision was made with scalpel, using Tr technique, we dissected through the subcutaneous fat, fascia, split the rectus muscles and then entered the peritoneal cavity.. Blunt tip Tr Trochar then inserted and balloon inflated to stabilize the port. CO2 gas was then used to insufflate the peritoneal cavity. Findings enlarged uterus consistent with benign fibroids Deep tendelenberg position was obtained. 2 robotic ports were then placed, one on the left, one on the right side under direct visualization. 11mm bladeless accessory port placed in left upper quadrant under direct visualization. Robot docked. Arm #1 Monopolar titi, arm #2 Bipolar [place] grasper. Fallopian tubes were identified and removed with the monoplar titi and removed thru the accessory port. Ureter was identified on each side and followed a normal course. Distal to the left ovary, the blood supply was coagulated with the bipolar [place] and then cut with Titi. We were well away from the ureter. Round ligament was coagulated and then cut. Uterine vessels were then skeletonized, bladder flap was sharply dissected away with titi. Uterine vessels were then coagulated close to the cervix staying away from the left ureter. Vessels then cut. The exact same process was repeated on the right side taking note of the location of the right ureter at all times. Colpotomy was then performed with the monopolar titi, once completed, the specimen was removed through the vagina. A sponge in a glove was then placed in the vagina to maintain pneumoperitoneum. Instrument exchange then occurred. Arm #1 became the GERMAIN needle front load trash truck driver, Arm # 2 became the Cobra Grasper. 12 inch 2-0 V-Lock 90 day suture was placed through the accessory port. Cuff was closed from left to right, then back taking at least 1cm full thickness bites of vaginal mucosa. Suture was cut so there was no tail, needle removed through the accessory port. Sponge removed from the vagina and seal air tight. Generous irrigation and suction, hemostasis excellent, Tisseal applied to pedicles. Cystoscopy performed and no injury to the bladder, no sutures noted, good strong jets of blue colored dye were noted from both right and left ureter openings. Cystoscope removed and a new riley catheter placed. Robot undocked, instruments, ports removed. gas allowed to escape. Incisions injected with Marcaine, fascia closed in the umbilical and a deep stitch into the accessory port with 0-Vicryl. 4-0 subcuticular skin closures on all incisions, dermabond apllied. Sponge and instrument counts correct. I attest to the content of the Intraoperative Record and any orders documented therein. Any exceptions are noted below.
[2020-01-27] MEDS ORDERED: PROMETHAZINE HCL INJ 25 MG/ML 1 ML VIAL ONE (13:08)
[2020-01-27] MEDS ORDERED: PROMETHAZINE HCL 12.5 MG in SODIUM CHLORIDE 0.9% 50 ML IV STA (13:26)
[2020-01-27] MEDS: fentaNYL citrate 100 MCG/2 ML VIAL IV PRN ×2 (13:45→13:50)
--- NOTE | 2020-01-27 14:25 | Anesthesiology Progress Note ---
Date of Service January 27, 2020 Anesthesia Post Procedure Vital Signs Vital Signs: Temp Pulse Pulse Resp BP BP Pulse Ox 01/27/20 14:08 36.6 C 61 16 122/64 100 01/27/20 13:55 58 L 16 113/61 100 01/27/20 13:45 58 L 16 118/62 100 01/27/20 13:35 57 L 16 122/56 L 100 01/27/20 13:25 61 16 123/66 100 01/27/20 13:19 36.8 C 81 16 154/89 H 99 01/27/20 08:30 37.0 C 77 18 116/69 98 Transfer of Care Handoff Completed per policy Notes Mental Status: alert / awake / arousable and participated in evaluation Patient Amnestic to Procedure: Yes Nausea / Vomiting: improving with treatment Pain: adequately controlled Airway Patency, RR, SpO2: stable & adequate BP & HR: stable & adequate Hydration State: stable & adequate Anesthetic Complications: no major complications apparent and Pt Satisfied with anesthetic care
[2020-01-27] MEDS ORDERED: MEPERIDINE HCL 50 MG/ML CARP IV PRN (14:39)
[2020-01-27] MEDS ORDERED: OXYCODONE/ACETAMINOPHEN 5mg/325mg TAB PO PRN (14:39)
[2020-01-27] MEDS ORDERED: ACETAMINOPHEN 325 MG TAB PO PRN (14:39)
[2020-01-27] MEDS ORDERED: IBUPROFEN 600 MG TAB PO PRN (14:39)
[2020-01-27] MEDS ORDERED: SIMETHICONE 80 MG CHEW PO PRN (14:39)
[2020-01-27] MEDS ORDERED: bisacodyL 10 MG SUPP PR PRN (14:39)
[2020-01-27] MEDS ORDERED: KETOROLAC 30 MG/ML VIAL IV PRN (14:39)
[2020-01-27] MEDS ORDERED: MAGNESIUM HYDROXIDE SUSP 30 ML UDC PO PRN (14:39)
[2020-01-27] MEDS ORDERED: PROMETHAZINE HCL 12.5 MG in SODIUM CHLORIDE 0.9% 50 ML IV PRN (14:39)
[2020-01-27] MEDS ORDERED: PROMETHAZINE HCL 25 MG in SODIUM CHLORIDE 0.9% 50 ML IV PRN (14:39)
[2020-01-27] MEDS ORDERED: ZOLPIDEM TARTRATE 5 MG TAB PO PRN (14:39)
[2020-01-27] MEDS ORDERED: LACTATED RINGER'S 1,000 ML IV SCH (16:00)
[2020-01-27] MEDS ORDERED: OXYCODONE IR HOME PACK PO ONE (20:30)
[2020-01-27] MEDS ORDERED: CETIRIZINE HCL 10 MG TABLET PO SCH (21:00)
[2020-01-27] MEDS ORDERED: DOCUSATE SODIUM 100 MG CAP PO SCH (21:00)
[2020-01-28] MEDS ORDERED: ASCORBIC ACID 500 MG TAB PO SCH (09:00)
[2020-01-28] MEDS ORDERED: MULTIVITAMIN TAB PO SCH (09:00)
--- NOTE | 2020-01-31 08:23 | Discharge Summary ---
Date of Service January 31, 2020 Admission HPI Per Admitting Provider patient had TLH and went home same day Discharge Data Procedures Performed Operation Date: 01/27/20 09:30 Actual Procedures p Robotic Total Laparoscopic Hysterectomy,(Not Applicable) - Enma Biggs MD, JAMIROG s Cystoscopy(Not Applicable) - Enma Biggs MD, FACOG Hospital Course (1) Leiomyoma: Patient had a total laparoscopic hysterectomy on [DATE] and met criteria to go home on POD#[] At that time she was ambulating well. Tolerating an oral diet. Pain was well controlled. No extremity pain. No bleeding. Voiding well. Discharge instructions were reviewed and prescriptions for pain control were sent and discussed. Patient advised to call with any concerns and follow up discussed including limitations on activity. (2) Menorrhagia: Coding Level of Care Code None Diagnoses Leiomyoma D21.9 Menorrhagia N92.0
== END 2020-01-27 20:59 | disposition home or self-care (01) ==
LOC: ASU 07:51 → 4N 07:51

== ENCOUNTER 2021-02-04 22:13 | Observation (INO) ==
[2021-02-04] MEDS ORDERED: MoRPHine SULFATE 4 MG/ML 1 ML CARP\\VIAL IV STA (22:36)
[2021-02-04] MEDS ORDERED: ONDANSETRON INJ 2 MG/ML 2 ML VIAL IV STA (22:36)
[2021-02-04] MEDS ORDERED: KETOROLAC 30 MG/ML VIAL IV STA (22:36)
--- NOTE | 2021-02-04 22:37 | Emergency Department Note ---
History of Present Illness General Chief complaint: Back Injury/Pain Stated complaint: LOWER BACK AND SIDE PAIN Time Seen by Provider: 02/04/21 22:28 History of Present Illness Maximum Pain Intensity: 10 This is a 45-year-old female that presents to the emergency department via private vehicle with complaints "lower back and side pain". Patient notes that about 1 hour prior to arrival she began with abrupt onset of left lower back pain that radiates to the left side of the abdomen. No reported trauma or injury. No fevers. No dysuria or hematuria. Patient is never had this happen before but does not earlier in the day she had a similar sensation but the pain seemed to dissipate. She is status post hysterectomy. Current pain 06/06. No alleviating factors. No aggravating factors. Home Medications Medication Instructions Recorded Confirmed Type multivitamin 1 tab PO DAILY 07/10/19 02/04/21 History ascorbic acid (vitamin C) [Vitamin 1,000 mg PO DAILY 01/09/20 02/04/21 History C] cetirizine [Zyrtec] 10 mg PO QPM 01/09/20 02/04/21 History secukinumab [Cosentyx Pen (2 Pens)] 300 mg SUBCUT .EVERY 2 MONTHS 02/04/21 02/04/21 History sulfasalazine 500 mg PO UD 02/04/21 02/04/21 History Allergies Allergy/AdvReac Type Severity Reaction Status Date / Time No Known Allergies Allergy Verified 02/04/21 23:25 Past Med/Surg History Medical History Leiomyoma Menorrhagia Psoriatic arthritis on Humira Uterine fibroid Surgical History History of robot-assisted laparoscopic hysterectomy Kopperl teeth removed Family History Father Diabetes Mother Diabetes Other No family history of adverse response to anesthesia Denies family history of Ovarian cancer Breast cancer Colorectal cancer Social History Smoking Status: Never smoker Second Hand Exposure: No; Hx Alcohol Use: Yes Alcohol type: hard liquor Hx Substance Use: No Preferred Language: Yi Communication Ability: Effective 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 Beliefs That Will Affect Care: None Current Living Situation: Spouse Feels Safe at Home: Yes Safety Concerns: Feels Safe At This Time Assistive Devices: Glasses Review of Systems A total of 10 systems reviewed and were otherwise negative Physical Exam Vital Signs Vital Signs - 24 hr 02/04/21 22:16 02/04/21 22:20 02/04/21 22:30 Temperature 35.8 C L Temperature Source Temporal Artery Scan Pulse Rate 77 Pulse Rate from SpO2 Sensor Pulse Rhythm Regular Pulse Strength Normal Respiratory Rate 16 16 Respiratory Effort / Characteristics Non-Labored Non-Labored Respiratory Depth Normal Normal Normal Respiratory Pattern Regular Regular Blood Pressure 158/84 H Blood Pressure Mean 108 Blood Pressure Position Sitting Pulse Oximetry 98 Oxygen Delivery Method Room Air Sepsis Recent Fever Within 48 Hours No Sepsis New/Unexplained Change in Mental Status N/A Sepsis Action Taken by Nursing No Action Required 02/04/21 23:00 02/05/21 00:00 02/05/21 00:30 Temperature Temperature Source Pulse Rate 65 72 66 Pulse Rate from SpO2 Sensor 65 Pulse Rhythm Pulse Strength Respiratory Rate 28 H 22 19 Respiratory Effort / Characteristics Respiratory Depth Respiratory Pattern Blood Pressure 120/85 Blood Pressure Mean 96 Blood Pressure Position Pulse Oximetry 97 Oxygen Delivery Method Room Air Sepsis Recent Fever Within 48 Hours Sepsis New/Unexplained Change in Mental Status Sepsis Action Taken by Nursing 02/05/21 00:52 02/05/21 01:00 02/05/21 01:30 Temperature Temperature Source Pulse Rate 70 72 68 Pulse Rate from SpO2 Sensor Pulse Rhythm Pulse Strength Respiratory Rate 22 22 19 Respiratory Effort / Characteristics Respiratory Depth Respiratory Pattern Blood Pressure 121/78 127/69 111/58 L Blood Pressure Mean 92 88 75 Blood Pressure Position Pulse Oximetry Oxygen Delivery Method Sepsis Recent Fever Within 48 Hours Sepsis New/Unexplained Change in Mental Status Sepsis Action Taken by Nursing 02/05/21 02:00 Temperature Temperature Source Pulse Rate 61 Pulse Rate from SpO2 Sensor Pulse Rhythm Pulse Strength Respiratory Rate 17 Respiratory Effort / Characteristics Respiratory Depth Respiratory Pattern Blood Pressure 112/70 Blood Pressure Mean 84 Blood Pressure Position Pulse Oximetry Oxygen Delivery Method Sepsis Recent Fever Within 48 Hours Sepsis New/Unexplained Change in Mental Status Sepsis Action Taken by Nursing VITAL SIGNS - Vital signs and nursing notes were reviewed. Stable and afebrile. GENERAL -45-year-old female appearing her stated age who appears to be in a great deal of pain. Communicates well with provider and answers questions appropriately. SKIN - Without rashes. No meningeal or petechial rash. HEAD - NC/AT. EYES - Sclera anicteric. NECK - No nuchal rigidity. LUNGS - Chest wall symmetric without accessory muscle use, intercostals retractions, or central cyanosis. Normal vesicular breath sounds CTA B/L. No wheezes, rales, or rhonchi appreciated. CARDIAC - RRR with S1/S2. No murmur, rubs, or gallops appreciated. ABDOMEN - Abdominal contour normal without pulsations or visible masses. BS normoactive all four quadrants. There is left-sided abdominal tenderness to palpation. No palpable masses, hepatosplenomegaly, or ascites noted. PSYCH -patient is alert and oriented but appears to be in pain. Course Administered Medications Ceftriaxone Sodium 1,000 mg/ (Dextrose) 50 mls @ 100 mls/hr IV Q24H [facility]; Protocol Stop: 02/06/21 03:29 Last Infusion: 02/05/21 03:44 Dose: 0 mls/hr Documented by: [id number] Admin: 02/05/21 02:50 Dose: 100 mls/hr Documented by: [id number] Sodium Chloride (1/2 Nss) 1,000 mls @ 175 mls/hr IV .Q5H43M [facility] Stop: 03/07/21 08:29 Last Admin: 02/05/21 09:37 Dose: 175 mls/hr Documented by: [id number] Sulfasalazine (Sulfasalazine 500 Mg Tablet) 500 mg PO BID [facility] Stop: 03/07/21 08:59 Last Admin: 02/05/21 09:37 Dose: 500 mg Documented by: [id number] Discontinued Medications Fentanyl Citrate (Fentanyl Citrate 100 Mcg/2 Ml Vial) 50 mcg IV NOW STA Stop: 02/04/21 23:01 Last Admin: 02/04/21 23:17 Dose: 50 mcg Documented by: [id number] Fentanyl Citrate (Fentanyl Citrate 100 Mcg/2 Ml Vial) 50 mcg IV NOW STA Stop: 02/04/21 23:46 Last Admin: 02/04/21 23:53 Dose: 50 mcg Documented by: [id number] Hydromorphone HCl (Hydromorphone Inj 0.5 Mg/0.5 Ml Syr) 0.5 mg IV Q30M [facility] Stop: 02/18/21 23:44 Last Admin: 02/05/21 04:43 Dose: Not Given Documented by: [id number] Admin: 02/05/21 04:42 Dose: Not Given Documented by: [id number] Admin: 02/05/21 04:42 Dose: Not Given Documented by: [id number] Admin: 02/05/21 04:42 Dose: Not Given Documented by: [id number] Admin: 02/05/21 04:42 Dose: Not Given Documented by: [id number] Admin: 02/05/21 04:42 Dose: Not Given Documented by: [id number] Admin: 02/05/21 04:42 Dose: Not Given Documented by: [id number] Admin: 02/05/21 04:41 Dose: Not Given Documented by: [id number] Admin: 02/05/21 04:41 Dose: Not Given Documented by: [id number] Admin: 02/05/21 00:50 Dose: 0.5 mg Documented by: [id number] Sodium Chloride (Nss 1000ml) 1,000 mls @ 999 mls/hr IV .Q1H1M [facility] Stop: 02/04/21 23:45 Last Infusion: 02/05/21 02:50 Dose: 0 mls/hr Documented by: [id number] Admin: 02/04/21 22:52 Dose: 999 mls/hr Documented by: [id number] Sodium Chloride (Nss 1000ml) 1,000 mls @ 125 mls/hr IV .Q8H [facility] Stop: 03/07/21 02:44 Last Infusion: 02/05/21 08:42 Dose: 0 mls/hr Documented by: [id number] Admin: 02/05/21 02:49 Dose: 125 mls/hr Documented by: [id number] Ketorolac Tromethamine (Ketorolac 30 Mg/Ml Vial) 15 mg IV NOW STA Stop: 02/04/21 22:37 Last Admin: 02/04/21 22:53 Dose: 15 mg Documented by: [id number] Morphine Sulfate (Morphine Sulfate 4 Mg/Ml 1 Ml Carp\\Vial) 4 mg IV NOW STA Stop: 02/04/21 22:37 Last Admin: 02/04/21 22:54 Dose: 4 mg Documented by: [id number] Ondansetron HCl (Ondansetron Inj 2 Mg/Ml 2 Ml Vial) 4 mg IV NOW STA Stop: 02/04/21 22:37 Last Admin: 02/04/21 22:54 Dose: 4 mg Documented by: [id number] Ondansetron HCl (Ondansetron Inj 2 Mg/Ml 2 Ml Vial) 4 mg IV NOW STA Stop: 02/05/21 02:03 Last Admin: 02/05/21 02:27 Dose: 4 mg Documented by: [id number] Tamsulosin HCl (Tamsulosin Hcl 0.4 Mg Cap) 0.4 mg PO NOW ONE Stop: 02/05/21 01:33 Last Admin: 02/05/21 01:57 Dose: 0.4 mg Documented by: [id number] Medical Decision Making Laboratory Data Result diagrams: 02/05/21 05:26 02/05/21 05:26 Lab Results 02/04/21 02/04/21 02/04/21 Range/Units 22:40 22:45 22:45 WBC 11.32 H (4.8-10.8) K/uL RBC 4.32 (4.2-5.4) M/uL Hgb 13.0 (12.0-16.0) g/dL Hct 38.6 (37-47) % MCV 89.4 (80-100) fL MCH 30.1 (25-34) pg MCHC 33.7 (32-36) g/dL RDW Std Deviation 42.4 (36.4-46.3) fL RDW Coeff of Leticia 12.9 (11.5-14.5) % Plt Count 235 (130-400) K/uL MPV 11.5 H (7.4-10.4) fL Immature Gran % (Auto) 0.2 % Neut % (Auto) 69.0 % Lymph % (Auto) 23.5 % [place] % (Auto) 5.7 % Eos % (Auto) 1.3 % Baso % (Auto) 0.3 % Neut # (Auto) 7.81 H (1.4-6.5) K/uL Lymph # (Auto) 2.66 (1.2-3.4) K/uL [place] # (Auto) 0.65 H (0.11-0.59) K/uL Eos # (Auto) 0.15 (0-0.5) K/uL Baso # (Auto) 0.03 (0-0.2) K/uL Immature Gran # (Auto) 0.02 (0.00-0.02) K/uL Sodium 142 (136-145) mmol/L Potassium 3.4 L (3.5-5.1) mmol/L Chloride 109 H (98-107) mmol/L Carbon Dioxide 23 (21-32) mmol/L Anion Gap 10.0 (3-11) BUN 19 H (7-18) mg/dl Creatinine 0.98 (0.6-1.2) mg/dl Est Cr Clr Drug Dosing 82.0 ml/min Est GFR ( Amer) 80.7 ml/min Est GFR (Non-Af Amer) 69.7 ml/min BUN/Creatinine Ratio 19.7 (10-20) Glucose 169 H (70-99) mg/dl Calcium 9.3 (8.5-10.1) mg/dl Total Bilirubin 0.3 (0.2-1) mg/dl AST 8 L (15-37) U/L ALT 20 (12-78) U/L Alkaline Phosphatase 43 L (45-117) U/L Total Protein 7.5 (6.4-8.2) gm/dl Albumin 4.0 (3.4-5.0) gm/dl Globulin 3.5 (2.5-4.0) gm/dl Albumin/Globulin Ratio 1.1 (0.9-2) Urine Color Yellow Urine Appearance Clear (Clear) Urine pH 5.0 (4.5-7.5) Ur Specific Shanks 1.028 (1.000-1.030) Urine Protein Negative (Negative) Urine Glucose (UA) Negative (Negative) Urine Ketones Negative (Negative) Urine Blood 2+ H (Negative) Urine Nitrite Negative (Negative) Urine Bilirubin Negative (Negative) Urine Urobilinogen Negative (Negative) Ur Leukocyte Esterase Negative (Negative) Urine WBC (Auto) 1-5 (0-5) /hpf Urine RBC (Auto) 0-4 (0-4) /hpf U Hyaline Cast (Auto) 1-5 (0-5) /lpf U Epithel Cells (Auto) >30 H (0-5) /lpf Urine Bacteria (Auto) 1+ H (Negative) COVID-19 Eval Order SARS-CoV-2 (PCR) (Negative) 02/05/21 02/05/21 Range/Units 00:00 00:00 WBC (4.8-10.8) K/uL RBC (4.2-5.4) M/uL Hgb (12.0-16.0) g/dL Hct (37-47) % MCV (80-100) fL MCH (25-34) pg MCHC (32-36) g/dL RDW Std Deviation (36.4-46.3) fL RDW Coeff of Leticia (11.5-14.5) % Plt Count (130-400) K/uL MPV (7.4-10.4) fL Immature Gran % (Auto) % Neut % (Auto) % Lymph % (Auto) % [place] % (Auto) % Eos % (Auto) % Baso % (Auto) % Neut # (Auto) (1.4-6.5) K/uL Lymph # (Auto) (1.2-3.4) K/uL [place] # (Auto) (0.11-0.59) K/uL Eos # (Auto) (0-0.5) K/uL Baso # (Auto) (0-0.2) K/uL Immature Gran # (Auto) (0.00-0.02) K/uL Sodium (136-145) mmol/L Potassium (3.5-5.1) mmol/L Chloride (98-107) mmol/L Carbon Dioxide (21-32) mmol/L Anion Gap (3-11) BUN (7-18) mg/dl Creatinine (0.6-1.2) mg/dl Est Cr Clr Drug Dosing ml/min Est GFR ( Amer) ml/min Est GFR (Non-Af Amer) ml/min BUN/Creatinine Ratio (10-20) Glucose (70-99) mg/dl Calcium (8.5-10.1) mg/dl Total Bilirubin (0.2-1) mg/dl AST (15-37) U/L ALT (12-78) U/L Alkaline Phosphatase (45-117) U/L Total Protein (6.4-8.2) gm/dl Albumin (3.4-5.0) gm/dl Globulin (2.5-4.0) gm/dl Albumin/Globulin Ratio (0.9-2) Urine Color Urine Appearance (Clear) Urine pH (4.5-7.5) Ur Specific Shanks (1.000-1.030) Urine Protein (Negative) Urine Glucose (UA) (Negative) Urine Ketones (Negative) Urine Blood (Negative) Urine Nitrite (Negative) Urine Bilirubin (Negative) Urine Urobilinogen (Negative) Ur Leukocyte Esterase (Negative) Urine WBC (Auto) (0-5) /hpf Urine RBC (Auto) (0-4) /hpf U Hyaline Cast (Auto) (0-5) /lpf U Epithel Cells (Auto) (0-5) /lpf Urine Bacteria (Auto) (Negative) COVID-19 Eval Order Covid19 at [facility] SARS-CoV-2 (PCR) NEGATIVE (Negative) Imaging Data Radiologist's Impression: Abdomen/Pelvis CT 02/04/21 22:[address] WITHOUT CONTRAST CT DOSE: 1009.60 mGycm HISTORY: Acute left lower quadrant abdominal pain L flank and L sided abd pain TECHNIQUE: Multiaxial CT images of the abdomen and pelvis were performed without contrast. A dose lowering technique was utilized adhering to the principles of ALARA. COMPARISON STUDY: CT abdomen pelvis 09/04/2019 FINDINGS: Clear lung bases. No pneumatosis or pneumoperitoneum. Imaged inferior cardiac chambers are unremarkable. The spleen, pancreas, adrenal glands, gallbladder and liver appear unremarkable. Unremarkable right kidney. Mild to moderate left- sided hydroureteronephrosis with mild periureteral inflammatory stranding secondary to an obstructing 4 mm calculus of the left ureterovesicular junction. Partial distention of the urinary bladder. Trace free pelvic fluid. The uterus appears to be surgically absent. No adnexal mass lesions. Unremarkable abdominal aorta and IVC. No adenopathy. No bowel obstruction or bowel wall thickening. Normal appendix. Unremarkable soft tissues. No acute fracture. IMPRESSION: 1. Mild to moderate left-sided hydroureteronephrosis secondary to an obstructing 4 mm calculus of the left ureterovesicular junction. 2. No bowel obstruction or bowel wall thickening. Normal appendix. ACT 112: Negative or not required by law. The above report was generated using voice recognition software. It may contain grammatical, syntax or spelling errors. Electronically signed by: Brad Escamilla M.D. 02/05/2021 7:[address] ABDOMEN & PELVIS Without Contrast: Comparison 09/04/2019. Mild to moderate left hydronephrosis with mild perinephric stranding due to a 4 mm calculus at the left ureterovesical junction. Punctate nonobstructing right renal calculus. No right ureteral calculus or hydronephrosis. Solid organs are otherwise unremarkable. No calcified gallstones. No biliary dilatation. No bowel obstruction. Unremarkable appendix. Hysterectomy. Trace free fluid in the pelvis. No acute osseous abnormality. Radiologist: Jarek Mo M.D. Study ready at 23:40 and initial results transmitted at 00:47 MDM Narrative Patient was seen and evaluated as above in room B09. Review was performed of nursing notes and vital signs. I did review pertinent previous visits and patient history. After obtaining a thorough history and physical examination the above work up was performed. Patient presents to us today with abrupt onset of left flank and left sided abdominal pain. History is most consistent with that of kidney stone. She does not have any history of kidney stone. Patient ap pears to be in a lot of pain. Patient is status post hysterectomy. Options of care were discussed with the patient. IV access was placed stat and she was given IV analgesics. The patient did require several rounds of IV analgesics here to barely manage the discomfort. It seemed that the pain meds continue to wear off. A CT scan was obtained of the abdomen and pelvis. Results of this as above. This confirmed the suspicion of kidney stone. Laboratory studies reveal mild leukocytosis 11.32 without significant anemia. Mild hyperglycemia with glucose of 169. BUN 19. No evidence of kidney failure. Potassium 3.4. Urinalysis does not suggest infection. Covid testing negative. Given that the patient has required several rounds of IV analgesics here I did discuss benefit versus risk of inpatient versus outpatient management. At this time I believe it be reasonable to have the patient admitted for further management of her pain. Patient happy with plan of care. Case discussed with the hospitalist. Please refer to further documentation regarding her stay. While in the department, I personally reevaluated the patient several times. GCS: 15 In the evaluation and treatment of this patient the following differential diagnoses were entertained: Torsion, obstruction, perforation, diverticulitis, kidney stone, pyelonephritis, UTI, among others. Impression & Plan Ureteral stone with hydronephrosis, Left flank pain Discharge Plan Visit Data Chief Complaint: Back Injury/Pain Stated Complaint: LOWER BACK AND SIDE PAIN ED Provider: Hay Coto ED Midlevel Provider: Javi Hodge Discharge Problem: Ureteral stone with hydronephrosis, Left flank pain Patient Disposition: Admitted As Inpatient Condition: Good Discharge Instructions Interventions: ED Discharge Assessment Last Done: 02/05/21 02:27
[2021-02-04] MEDS ORDERED: SODIUM CHLORIDE 0.9% 1000ML 1,000 ML IV SCH (22:45)
[2021-02-04] MEDS ORDERED: fentaNYL citrate 100 MCG/2 ML VIAL IV STA ×2 (23:00→23:45)
[2021-02-04 23:06] LABS: Basophils # (auto) 0.03 K/uL (0-0.2); Basophils % (auto) 0.3 %; Eosinophils # (auto) 0.15 K/uL (0-0.5); Eosinophils % (auto) 1.3 %; Hematocrit (blood only) 38.6 % (37-47); Immature Granulocytes # (auto) 0.02 K/uL (0.00-0.02); Immature Granulocytes % (auto) 0.2 %; Lymphocytes # (auto) 2.66 K/uL (1.2-3.4); Lymphocytes % (auto) 23.5 %; Mean Corpuscular Hemoglobin 30.1 pg (25-34); Mean Corpuscular Hgb Conc 33.7 g/dL (32-36); Mean Corpuscular Volume 89.4 fL (80-100); Mean Platelet Volume 11.5 fL (7.4-10.4); Monocytes # (auto) 0.65 K/uL (0.11-0.59); Monocytes % (auto) 5.7 %; Neutrophils # (auto) 7.81 K/uL (1.4-6.5); Platelet Count 235 K/uL (130-400); RDW Coefficient of Variation 12.9 % (11.5-14.5); RDW Standard Deviation 42.4 fL (36.4-46.3); Red Blood Count 4.32 M/uL (4.2-5.4); White Blood Count 11.32 K/uL (4.8-10.8)
[2021-02-04 23:29] LABS: BUN Creatinine Ratio 19.7 (10-20); Calcium 9.3 mg/dl (8.5-10.1); Est GFR (African American) 80.7 ml/min; Est GFR (Non-African American) 69.7 ml/min; Potassium 3.4 mmol/L (3.5-5.1)
[2021-02-04 23:32] LABS: Albumin Globulin Ratio 1.1 (0.9-2); Bilirubin,Total 0.3 mg/dl (0.2-1); Globulin 3.5 gm/dl (2.5-4.0); Total Protein 7.5 gm/dl (6.4-8.2)
[2021-02-04 23:52] LABS: Appearance Urine Clear (Clear); Bacteria Urine Automated 1+ (Negative); Bilirubin Urine Negative (Negative); Blood Urine 2+ (Negative); Color Urine Yellow; Epithelial Cell Urine Auto >30 /lpf (0-5); Glucose Urine UA Negative (Negative); Ketones Urine Negative (Negative); Leukocyte Esterase Urine Negative (Negative); Nitrite Urine Negative (Negative); Protein Urine Negative (Negative); RBC Urine Automated 0-4 /hpf (0-4); Specific Gravity Urine 1.028 (1.000-1.030); Urobilinogen Urine Negative (Negative)
[2021-02-05] MEDS: HYDROmorphone INJ 0.5 MG/0.5 ML SYR IV SCH ×4 (00:50→04:43)
--- NOTE | 2021-02-05 01:28 | History & Physical Report ---
Date of Service February 05, 2021 Assessment & Plan (1) Ureteral stone with hydronephrosis: Dorina Merritt is a 45-year-old female with past medical history significant for shingles, psoriatic arthritis, and s/p hysterectomy; who presented to the emergency department with complaints of lower back some left side pain that is been going on for the last hour. Ureteral stone with hydronephrosis: -CT abdomen pelvis demonstrating 4 mm calculus of the left UVJ with mild to moderate hydronephrosis and perinephric stranding -Received Rocephin in ED, will continue until stone passage -Ordered tamsulosin nightly for stone passage assistance -Do not think that urology consult is needed at this moment in time given size of stone, and extent of symptoms -Toradol unsuccessful for pain control, had relief with Dilaudid 0.5 mg every 30 minutes PRN in ED -Strain all urine Psoriatic arthritis: -Recently started on sulfasalazine with planned upward titration -Continue sulfasalazine 500 mg twice daily Diet: Regular CODE STATUS: Full code DVT prophylaxis: Deferred at this time (2) Left flank pain: (3) Psoriatic arthritis: History of Present Illness Primary Care Provider: Cole Coppola PA-C Dorina Merritt is a 45-year-old female with past medical history significant for shingles, psoriatic arthritis, and s/p hysterectomy; who presented to the emergency department with complaints of lower back some left side pain that is been going on for the last hour. Pain was radiating from her lower back to her left side of her abdomen. Has been feeling otherwise well. Had no recent recollection of injury or changes in urination or bowel movements. Had some associated nausea and vomiting with the pain. Denies fevers, chills, sweats, shortness of breath, chest pain, palpitations, and loss of consciousness. Allergies Allergy/AdvReac Type Severity Reaction Status Date / Time No Known Allergies Allergy Verified 02/04/21 23:25 Home Medications Medication Instructions Recorded Confirmed Type multivitamin 1 tab PO DAILY 07/10/19 02/04/21 History ascorbic acid (vitamin C) [Vitamin 1,000 mg PO DAILY 01/09/20 02/04/21 History C] cetirizine [Zyrtec] 10 mg PO QPM 01/09/20 02/04/21 History secukinumab [Cosentyx Pen (2 Pens)] 300 mg SUBCUT .EVERY 2 MONTHS 02/04/21 02/04/21 History sulfasalazine 500 mg PO UD 02/04/21 02/04/21 History Past Med/Surg History Medical History Leiomyoma Menorrhagia Psoriatic arthritis on Humira Uterine fibroid Surgical History History of robot-assisted laparoscopic hysterectomy Mcgrann teeth removed Family History Father Diabetes Mother Diabetes Other No family history of adverse response to anesthesia Denies family history of Ovarian cancer Breast cancer Colorectal cancer Social History Smoking Status: Never smoker Second Hand Exposure: No; Hx Alcohol Use: Yes Alcohol type: hard liquor Hx Substance Use: No Preferred Language: Danish Communication Ability: Effective Manager Battery Required: No Beliefs That Will Affect Care: None Current Living Situation: Spouse Feels Safe at Home: Yes Safety Concerns: Feels Safe At This Time Assistive Devices: Glasses Review of Systems Review of Systems: All systems reviewed & are unremarkable except as noted in HPI & below Physical Exam Constitutional: WD/WN, vitals as above Respiratory: normal respiratory effort, lungs clear to auscultation Auscultation: no crackles, no rales, no rhonchi and no wheezes Cardiovascular: Rate/Rhythm: regular rate and regular rhythm Heart Sounds: no gallop, no murmur and no cardiac rub Vessels: normal peripheral pulses Gastrointestinal (Abdomen): Inspection/Auscultation: abdomen normal to inspection and normal bowel sounds; abdomen not distended Percussion/Palpation: abdomen soft; no guarding Suprapubic tenderness, left CVA tenderness Musculoskeletal: no cyanosis or clubbing, extremities motor strength 5/5 Skin: no rashes, warm and dry Neurologic: PERRL, EOMI, accommodation nl, no face palsy, no dysarthria CN's II-XI intact bilaterally and moves all extremities Psychiatric: Orientation: alert and oriented x 3 Results & Data Results & Data ([facility]) Vital Signs (Past 12 Hours) Vital Signs Temp Pulse Resp BP Pulse Ox 02/05/21 00:30 66 19 02/05/21 00:00 72 22 02/04/21 23:00 65 28 H 120/85 97 02/04/21 22:20 16 02/04/21 22:16 35.8 C L 77 16 158/84 H 98 Laboratory Results 02/05/21 02/05/21 02/04/21 Range/Units 00:00 00:00 22:45 WBC (4.8-10.8) K/uL RBC (4.2-5.4) M/uL Hgb (12.0-16.0) g/dL Hct (37-47) % MCV (80-100) fL MCH (25-34) pg MCHC (32-36) g/dL RDW Std Deviation (36.4-46.3) fL RDW Coeff of Leticia (11.5-14.5) % Plt Count (130-400) K/uL MPV (7.4-10.4) fL Immature Gran % (Auto) % Neut % (Auto) % Lymph % (Auto) % [place] % (Auto) % Eos % (Auto) % Baso % (Auto) % Neut # (Auto) (1.4-6.5) K/uL Lymph # (Auto) (1.2-3.4) K/uL [place] # (Auto) (0.11-0.59) K/uL Eos # (Auto) (0-0.5) K/uL Baso # (Auto) (0-0.2) K/uL Immature Gran # (Auto) (0.00-0.02) K/uL Sodium 142 (136-145) mmol/L Potassium 3.4 L (3.5-5.1) mmol/L Chloride 109 H (98-107) mmol/L Carbon Dioxide 23 (21-32) mmol/L Anion Gap 10.0 (3-11) BUN 19 H (7-18) mg/dl Creatinine 0.98 (0.6-1.2) mg/dl Est Cr Clr Drug Dosing 82.0 ml/min Est GFR ( Amer) 80.7 ml/min Est GFR (Non-Af Amer) 69.7 ml/min BUN/Creatinine Ratio 19.7 (10-20) Glucose 169 H (70-99) mg/dl Calcium 9.3 (8.5-10.1) mg/dl Total Bilirubin 0.3 (0.2-1) mg/dl AST 8 L (15-37) U/L ALT 20 (12-78) U/L Alkaline Phosphatase 43 L (45-117) U/L Total Protein 7.5 (6.4-8.2) gm/dl Albumin 4.0 (3.4-5.0) gm/dl Globulin 3.5 (2.5-4.0) gm/dl Albumin/Globulin Ratio 1.1 (0.9-2) Urine Color Urine Appearance (Clear) Urine pH (4.5-7.5) Ur Specific [place] (1.000-1.030) Urine Protein (Negative) Urine Glucose (UA) (Negative) Urine Ketones (Negative) Urine Blood (Negative) Urine Nitrite (Negative) Urine Bilirubin (Negative) Urine Urobilinogen (Negative) Ur Leukocyte Esterase (Negative) Urine WBC (Auto) (0-5) /hpf Urine RBC (Auto) (0-4) /hpf U Hyaline Cast (Auto) (0-5) /lpf U Epithel Cells (Auto) (0-5) /lpf Urine Bacteria (Auto) (Negative) COVID-19 Eval Order Covid19 at [facility] SARS-CoV-2 (PCR) NEGATIVE (Negative) 02/04/21 02/04/21 Range/Units 22:45 22:40 WBC 11.32 H (4.8-10.8) K/uL RBC 4.32 (4.2-5.4) M/uL Hgb 13.0 (12.0-16.0) g/dL Hct 38.6 (37-47) % MCV 89.4 (80-100) fL MCH 30.1 (25-34) pg MCHC 33.7 (32-36) g/dL RDW Std Deviation 42.4 (36.4-46.3) fL RDW Coeff of Leticia 12.9 (11.5-14.5) % Plt Count 235 (130-400) K/uL MPV 11.5 H (7.4-10.4) fL Immature Gran % (Auto) 0.2 % Neut % (Auto) 69.0 % Lymph % (Auto) 23.5 % [place] % (Auto) 5.7 % Eos % (Auto) 1.3 % Baso % (Auto) 0.3 % Neut # (Auto) 7.81 H (1.4-6.5) K/uL Lymph # (Auto) 2.66 (1.2-3.4) K/uL [place] # (Auto) 0.65 H (0.11-0.59) K/uL Eos # (Auto) 0.15 (0-0.5) K/uL Baso # (Auto) 0.03 (0-0.2) K/uL Immature Gran # (Auto) 0.02 (0.00-0.02) K/uL Sodium (136-145) mmol/L Potassium (3.5-5.1) mmol/L Chloride (98-107) mmol/L Carbon Dioxide (21-32) mmol/L Anion Gap (3-11) BUN (7-18) mg/dl Creatinine (0.6-1.2) mg/dl Est Cr Clr Drug Dosing ml/min Est GFR ( Amer) ml/min Est GFR (Non-Af Amer) ml/min BUN/Creatinine Ratio (10-20) Glucose (70-99) mg/dl Calcium (8.5-10.1) mg/dl Total Bilirubin (0.2-1) mg/dl AST (15-37) U/L ALT (12-78) U/L Alkaline Phosphatase (45-117) U/L Total Protein (6.4-8.2) gm/dl Albumin (3.4-5.0) gm/dl Globulin (2.5-4.0) gm/dl Albumin/Globulin Ratio (0.9-2) Urine Color Yellow Urine Appearance Clear (Clear) Urine pH 5.0 (4.5-7.5) Ur Specific [place] 1.028 (1.000-1.030) Urine Protein Negative (Negative) Urine Glucose (UA) Negative (Negative) Urine Ketones Negative (Negative) Urine Blood 2+ H (Negative) Urine Nitrite Negative (Negative) Urine Bilirubin Negative (Negative) Urine Urobilinogen Negative (Negative) Ur Leukocyte Esterase Negative (Negative) Urine WBC (Auto) 1-5 (0-5) /hpf Urine RBC (Auto) 0-4 (0-4) /hpf U Hyaline Cast (Auto) 1-5 (0-5) /lpf U Epithel Cells (Auto) >30 H (0-5) /lpf Urine Bacteria (Auto) 1+ H (Negative) COVID-19 Eval Order SARS-CoV-2 (PCR) (Negative) Diagnostic Findings CT ABDOMEN & PELVIS Without Contrast: Comparison 09/04/2019. Mild to moderate left hydronephrosis with mild perinephric stranding due to a 4 mm calculus at the left ureterovesical junction. Punctate nonobstructing right renal calculus. No right ureteral calculus or hydronephrosis. Solid organs are otherwise unremarkable. No calcified gallstones. No biliary dilatation. No bowel obstruction. Unremarkable appendix. Hysterectomy. Trace free fluid in the pelvis. No acute osseous abnormality. Radiologist: Jarek Mo M.D. Medications Administered Current Inpatient Medications Acetaminophen (Acetaminophen 500 Mg Tab) 1,000 mg PO Q8H PRN PRN Reason: pain/fever Stop: 03/07/21 02:32 Al Hydrox/Mg Hydrox/Simethicone (Aluminum/Magnesium Susp 30 Ml Udc) 30 ml PO Q6H PRN PRN Reason: Dyspepsia Stop: 03/07/21 02:32 Cetirizine HCl (Cetirizine Hcl 10 Mg Tablet) 10 mg PO QPM ROSEMARY Stop: 03/07/21 20:59 Hydromorphone HCl (Hydromorphone Inj 0.5 Mg/0.5 Ml Syr) 0.5 mg IV Q30M ROSEMARY Stop: 02/18/21 23:44 Last Admin: 02/05/21 00:50 Dose: 0.5 mg Documented by: Ceftriaxone Sodium 1,000 mg/ (Dextrose) 50 mls @ 100 mls/hr IV Q24H ROSEMARY; Protocol Stop: 02/06/21 03:29 Last Infusion: 02/05/21 03:44 Dose: Infused Documented by: Sodium Chloride (Nss 1000ml) 1,000 mls @ 125 mls/hr IV .Q8H ROSEMARY Stop: 03/07/21 02:44 Last Admin: 02/05/21 02:49 Dose: 125 mls/hr Documented by: Magnesium Hydroxide (Magnesium Hydroxide Susp 30 Ml Udc) 30 ml PO Q6H PRN PRN Reason: Constipation Stop: 03/07/21 02:32 Ondansetron HCl (Ondansetron Inj 2 Mg/Ml 2 Ml Vial) 4 mg IV Q6H PRN PRN Reason: Nausea Stop: 03/07/21 02:32 Polyethylene Glycol (Polyethylene (Miralax) 17 Gm Pack) 17 gm PO DAILY PRN PRN Reason: Constipation Stop: 03/07/21 02:32 Sulfasalazine (Sulfasalazine 500 Mg Tablet) 500 mg PO BID ROSEMARY Stop: 03/07/21 08:59 Supervising Physician Co-Signing Physician Notes Patient seen and examined, chart reviewed, case discussed with Dr. Franco and I agree with his assessment and plan as documented above. Briefly, patient is a 45yo female presenting with renal stone - 4mm calculus at left UVJ with hydronephrosis and stranding. Patient afebrile, HD stable, nontoxic in appearance Exam +subrapubic tenderness, +left CVA tenderness Remainder of exam unremarkable Labs and images reviewed Assessment/Plan - hoping for stone to pass. 4mm at UVJ -Flomax, IVF, pain control and antiemetics -Bacteria in urine although contaminated specimen - will continue ceftriaxone. Patient with relative immunosuppression due to psoriatic meds -Remainder of plan as above Resident Activity Tracking Resident Involvement: Resident Care Provided Care Provided: Adult Hospital Medicine
[2021-02-05] MEDS ORDERED: TAMSULOSIN HCL 0.4 MG CAP PO ONE (01:32)
[2021-02-05] MEDS ORDERED: cefTRIAXone SODIUM 1,000 MG in DEXTROSE 5% 50 ML IV SCH (01:45)
[2021-02-05] MEDS ORDERED: ONDANSETRON INJ 2 MG/ML 2 ML VIAL IV STA (02:02)
[2021-02-05] MEDS ORDERED: ONDANSETRON INJ 2 MG/ML 2 ML VIAL IV PRN (02:33)
[2021-02-05] MEDS ORDERED: MAGNESIUM HYDROXIDE SUSP 30 ML UDC PO PRN (02:33)
[2021-02-05] MEDS ORDERED: ACETAMINOPHEN 500 MG TAB PO PRN (02:33)
[2021-02-05] MEDS ORDERED: ALUMINUM/MAGNESIUM SUSP 30 ML UDC PO PRN (02:33)
[2021-02-05] MEDS ORDERED: POLYETHYLENE (MIRALAX) 17 GM PACK PO PRN (02:33)
[2021-02-05] MEDS ORDERED: SODIUM CHLORIDE 0.9% 1000ML 1,000 ML IV SCH (02:45)
[2021-02-05] MEDS ORDERED: HYDROmorphone INJ 0.5 MG/0.5 ML SYR IV PRN (04:37)
[2021-02-05 05:38] LABS: Basophils # (auto) 0.02 K/uL (0-0.2); Basophils % (auto) 0.2 %; Hematocrit (blood only) 35.8 % (37-47); Immature Granulocytes # (auto) 0.02 K/uL (0.00-0.02); Immature Granulocytes % (auto) 0.2 %; Lymphocytes # (auto) 1.05 K/uL (1.2-3.4); Lymphocytes % (auto) 8.7 %; Mean Corpuscular Hemoglobin 30.2 pg (25-34); Mean Corpuscular Hgb Conc 33.5 g/dL (32-36); Mean Corpuscular Volume 90.2 fL (80-100); Mean Platelet Volume 11.2 fL (7.4-10.4); Monocytes # (auto) 0.77 K/uL (0.11-0.59); Monocytes % (auto) 6.4 %; Neutrophils # (auto) 10.17 K/uL (1.4-6.5); Neutrophils % (auto) 84.5 %; Platelet Count 208 K/uL (130-400); RDW Coefficient of Variation 12.9 % (11.5-14.5); RDW Standard Deviation 42.5 fL (36.4-46.3); Red Blood Count 3.97 M/uL (4.2-5.4); White Blood Count 12.03 K/uL (4.8-10.8)
--- NOTE | 2021-02-05 05:49 | Billing Data ---
Date of Service February 05, 2021 Coding Level of Care Code 74649 Initial Inpt Care Lvl 2
[2021-02-05 06:21] LABS: BUN Creatinine Ratio 20.2 (10-20); Creatinine Clr Calc Pharmacy 95.7 ml/min; Est GFR (African American) 97.3 ml/min; Est GFR (Non-African American) 83.9 ml/min; Potassium 4.6 mmol/L (3.5-5.1)
--- NOTE | 2021-02-05 07:31 | CT Scan Report ---
ABDOMEN AND PELVIS CT WITHOUT CONTRAST CT DOSE: 1009.60 mGycm HISTORY: Acute left lower quadrant abdominal pain L flank and L sided abd pain TECHNIQUE: Multiaxial CT images of the abdomen and pelvis were performed without contrast. A dose lo wering technique was utilized adhering to the principles of ALARA. COMPARISON STUDY: CT abdomen pelvis 09/04/2019 FINDINGS: Clear lung bases. No pneumatosis or pneumoperitoneum. Imaged inferior cardiac chambers are unremarkab le. The spleen, pancreas, adrenal glands, gallbladder and liver appear unremarkable. Unremarkable rig ht kidney. Mild to moderate left-sided hydroureteronephrosis with mild periureteral inflammatory stra nding secondary to an obstructing 4 mm calculus of the left ureterovesicular junction. Partial disten tion of the urinary bladder. Trace free pelvic fluid. The uterus appears to be surgically absent. No adnexal mass lesions. Unremarkable abdominal aorta and IVC. No adenopathy. No bowel obstruction or bowel wall thickening. Normal appendix. Unremarkable soft tissues. No acute f racture. IMPRESSION: 1. Mild to moderate left-sided hydroureteronephrosis secondary to an obstructing 4 mm calculus of the left ureterovesicular junction. 2. No bowel obstruction or bowel wall thickening. Normal appendix. ACT 112: Negative or not required by law. The above report was generated using voice recognition software. It may contain grammatical, syntax o r spelling errors. Electronically signed by: Brad Escamilla M.D. 02/05/2021 7:30 AM
[2021-02-05] MEDS ORDERED: KETOROLAC 30 MG/ML VIAL IV PRN (08:26)
[2021-02-05] MEDS ORDERED: SODIUM CHLORIDE 0.45 % 1,000 ML IV SCH (08:30)
[2021-02-05] MEDS ORDERED: sulfaSALAzine 500 MG TABLET PO SCH (09:00)
--- NOTE | 2021-02-05 15:03 | XRay Report ---
KUB HISTORY: Left flank pain. ?retained stone COMPARISON: None. FINDINGS: The bowel gas pattern is unremarkable. There are no dilated loops of small bowel to suggest an obstruction. There is a 4 mm calcification within the left deep pelvis corresponding to the heather ent's known left UVJ stone. This is unchanged in position. Additional punctate calcifications in the deep pelvis are consistent with phleboliths. No renal calculi identified. No pneumoperitoneum or pneu matosis. IMPRESSION: No change in the 4 mm stone within the left ureterovesical junction. ACT 112: Negative or not required by law. Electronically signed by: Jin Timmons M.D. 02/05/2021 3:02 PM
[2021-02-05] MEDS ORDERED: oxyCODONE IR HOME PACK PO ONE (15:13)
--- NOTE | 2021-02-05 16:44 | Discharge Summary ---
Date of Service February 05, 2021 Admission HPI Per Admitting Provider Dorina Merritt is a 45-year-old female with past medical history significant for shingles, psoriatic arthritis, and s/p hysterectomy; who presented to the emergency department with complaints of lower back some left side pain that is been going on for the last hour. Pain was radiating from her lower back to her left side of her abdomen. Has been feeling otherwise well. Had no recent recollection of injury or changes in urination or bowel movements. Had some associated nausea and vomiting with the pain. Denies fevers, chills, sweats, shortness of breath, chest pain, palpitations, and loss of consciousness. Admission Exam Per Admitting Provider Constitutional: WD/WN, vitals as above Respiratory: normal respiratory effort, lungs clear to auscultation Auscultation: no crackles, no rales, no rhonchi and no wheezes Cardiovascular: Rate/Rhythm: regular rate and regular rhythm Heart Sounds: no gallop, no murmur and no cardiac rub Vessels: normal peripheral pulses Gastrointestinal (Abdomen): Inspection/Auscultation: abdomen normal to inspection and normal bowel sounds; abdomen not distended Percussion/Palpation: abdomen soft; no guarding Suprapubic tenderness, left CVA tenderness Musculoskeletal: no cyanosis or clubbing, extremities motor strength 5/5 Skin: no rashes, warm and dry Neurologic: PERRL, EOMI, accommodation nl, no face palsy, no dysarthria CN's II-XI intact bilaterally and moves all extremities Psychiatric: Orientation: alert and oriented x 3 Principal Diagnosis Ureterolithiasis Discharge Exam Constitutional WD/WN, vitals as above Respiratory normal respiratory effort, lungs clear to auscultation Cardiovascular RRR, no murmur, no edema Gastrointestinal (Abdomen) normal bowel sounds, soft, nontender, no hepatosplenomegaly Neurologic moves all extremities and awake; not confused Genitourinary + CVA tenderness (Left) Discharge Data Allergies Allergy/AdvReac Type Severity Reaction Status Date / Time No Known Allergies Allergy Verified 02/04/21 23:25 Consultations 02/05/21 00:36 ED Decision to Admit Stat Ordered Studies 02/04/21 22:36 CT abd pelvis wo con Urgent IMPRESSION: 1. Mild to moderate left-sided hydroureteronephrosis secondary to an obstructing 4 mm calculus of the left ureterovesicular junction. 2. No bowel obstruction or bowel wall thickening. Normal appendix. Hospital Course (1) Ureteral stone with hydronephrosis: Dorina Merritt is a 45 year old female observed at [facility] on February 05, 2021 due to low back and left-sided flank pain. She was diagnosed with an obstructing 4 mm stone at the left ureterovesicular junction on CT. Initially stayed on observation for pain control and IV fluids but has been pain free mostly since admission. Follow up XR KUB confirmed no movement of the stone however given 4mm in size and at left VUJ with no evidence of infection recommend she continues to stay well hydrated at home she was given an oxycodone home pack and ketorolac for pain. Stone analysis lab order and urine strainer given to patient. Number for urology given for patient to follow up next week. Due to increased crystalluria and stone formation with sulfasalazine recommended discontinuing this until following up with urology as an outpatient. She should contact her automation driver for alternative medication if her ankle flares up. (2) Left flank pain: (3) Psoriatic arthritis: Total Time Total Time Spent Total Time Spent (In Minutes): 25 Discharge Plan Discharge Items Patient Disposition: Home - Self-Care Reason For Visit: URETEROLITHIASIS Discharge Diagnosis: Ureterolithiasis (kidney stones) Condition on Discharge: Good Activity: Resume your previous activity Non-emergency contact: Primary Care Provider Call non-emergency contact if: you have any medication questions and your symptoms worsen Follow-up/Referrals: Mary Diaz CRNP [Nurse Practitioner] - (1 week) Cole Coppola PA-C [Primary Care Provider] - Diet: Regular Ambulatory Orders: Stone Analysis (Routine) Timeframe: 1 Day Location: None Selected Ordered By: Casey Pickett Attending Provider Instructions: You were observed at [facility] on February 05, 2021 due to low back and left-sided flank pain. You were diagnosed with an obstructing 4 mm stone at the left ureterovesicular junction on CT. Please stay well-hydrated and continue to strain all urine and use stone analysis order to have this sent off to for analysis with results to your primary care physician and urology. Please follow up with urology in approximately 1 week. Due to increased crystalluria and stone formation with sulfasalazine recommending discontinuing this until following up with urology as an outpatient. Please contact rheumatology if you require additional treatment for your psoriatic arthritis flare. Pending Studies at Discharge: No Stand-Alone Forms: My [facility], Smoking Cessation Medications and DC Order Prescriptions: New tamsulosin 0.4 mg capsule 0.4 mg PO DAILY Qty: 14 RF: 0 ketorolac 10 mg tablet 10 mg PO Q6H PRN (Reason: pain) 5 Days Qty: 10 RF: 0 ondansetron HCl 4 mg tablet 4 mg PO Q6H PRN (Reason: nausea and vomiting) Qty: 10 RF: 0 Continued multivitamin [Daily Multi-Vitamin] tablet 1 tab PO DAILY RF: 0 cetirizine [Zyrtec] 10 mg Tablet 10 mg PO QPM RF: 0 ascorbic acid (vitamin C) [Vitamin C] 500 mg Tablet 1,000 mg PO DAILY RF: 0 Cosentyx Pen (2 Pens) 150 mg/mL pen injector 300 mg SUBCUT .EVERY 2 MONTHS RF: 0 Discontinued sulfasalazine 500 mg tablet 500 mg PO UD RF: 0 Discharge Orders: Discharge Order (Routine); Ordered 02/05/21 Ordered By: Casey Salas/Other Patient Handouts: ED Kidney Stone w/ Colic Admission Data Admit Date/Time: 02/05/21 02:18 Attending Provider: Casey Ritchie Admit Provider: Ramo Franco Primary Care Provider: Cole Coppola Other Providers: Kennedi Correa Other Interventions: Discharge Summary Assessment (RN) Last Done: 02/05/21 16:51 Coding Level of Care Code Admit/DC Same Day >8hr Level 3 Diagnoses Ureteral stone with hydronephrosis N13.2 Left flank pain R10.9 Psoriatic arthritis L40.50
[2021-02-05] MEDS ORDERED: TAMSULOSIN HCL 0.4 MG CAP PO SCH (21:00)
[2021-02-05] MEDS ORDERED: CETIRIZINE HCL 10 MG TABLET PO SCH (21:00)
== END 2021-02-05 17:32 | disposition home or self-care (01) | DRG 694 ==
LOC: ED 22:13 → INTOOBSV 02-05 02:18 → EDINP 02-05 02:18 → SUATTDRO 02-05 02:18 → EDINP 02-05 02:27

== ENCOUNTER 2024-08-09 11:32 | Inpatient (IN) ==
--- NOTE | 2024-07-10 16:17 | PAT Medication Instructions ---
Medication Instructions Date of Service July 10, 2024 Home Medications Medication Instructions Recorded pantoprazole 40 mg tablet,delayed 40 mg PO DAILY #90 tabs 07/13/23 release tramadol 50 mg tablet 50 mg PO Q8H PRN pain #45 tabs 12/25/23 ustekinumab 45 mg/0.5 mL 45 mg (0.5 mL) subcut .COMPLEX #2 01/01/24 subcutaneous syringe (Stelara) mL piroxicam 10 mg capsule 10 mg PO BID #180 caps 03/29/24 methotrexate sodium 2.5 mg tablet 20 mg (8 x 2.5 mg) PO Q7D #96 tabs 05/14/24 peg 3350-electrolytes 236 240 ml PO .COMPLEX #4,000 mL 06/26/24 gram-22.74 gram-6.74 gram-5.86 gram solution (Golytely) multivitamin (Daily Multi-Vitamin tablet) 1 tab PO HS ascorbic acid (vitamin C) 500 mg tablet (Vitamin C) 1,000 mg PO HS cetirizine 10 mg tablet (Zyrtec) 10 mg PO QAM cholecalciferol (vitamin D3) 125 mcg (5,000 unit) tablet (Vitamin D3) 250 mcg PO HS pantoprazole 40 mg tablet,delayed release 40 mg PO DAILY tramadol 50 mg tablet 50 mg PO Q8H PRN pain ustekinumab 45 mg/0.5 mL subcutaneous syringe (Stelara) 45 mg (0.5 mL) subcut .COMPLEX piroxicam 10 mg capsule 10 mg PO BID methotrexate sodium 2.5 mg tablet 20 mg (8 x 2.5 mg) PO Q7D clobetasol 0.05 % topical ointment 1 applic topical DAILY PRN psoriasis folic acid 1 mg tablet 1 mg PO HS lisinopril 10 mg tablet 10 mg PO QAM ASK your surgeon for instructions piroxicam 10 mg capsule 10 mg PO BID ASK your prescriber and surgeon ustekinumab 45 mg/0.5 mL subcutaneous syringe (Stelara) 45 mg (0.5 mL) subcut .COMPLEX STOP 7 days prior to surgery (if okay with prescriber) methotrexate sodium 2.5 mg tablet 20 mg (8 x 2.5 mg) PO Q7D STOP taking 24 hours before surgery clobetasol 0.05 % topical ointment 1 applic topical DAILY PRN psoriasis DO NOT take the morning of surgery cetirizine 10 mg tablet (Zyrtec) 10 mg PO QAM lisinopril 10 mg tablet 10 mg PO QAM Take morning of surgery With a small sip of water, OTHERWISE NOTHING TO EAT OR DRINK AFTER MIDNIGHT: pantoprazole 40 mg tablet,delayed release 40 mg PO DAILY tramadol 50 mg tablet 50 mg PO Q8H PRN pain (if needed) Take evening before surgery multivitamin (Daily Multi-Vitamin tablet) 1 tab PO HS ascorbic acid (vitamin C) 500 mg tablet (Vitamin C) 1,000 mg PO HS cholecalciferol (vitamin D3) 125 mcg (5,000 unit) tablet (Vitamin D3) 250 mcg PO HS tramadol 50 mg tablet 50 mg PO Q8H PRN pain (if needed) folic acid 1 mg tablet 1 mg PO HS Other Notes If you have any questions please call us at [phone] or [phone] or [phone] or [phone]
--- NOTE | 2024-07-17 09:40 | Anesthesiology Consultation ---
Date of Service July 17, 2024 Assessment & Plan (1) Encounter for pre-operative examination: - awaiting surgeon ordered [place] PCP pre-operative evaluation 07/30/24. Chart Review Chart Review: Pending: Refer to Additional Notes / Consult section and Patient seen in Pre Admission Testing Teaching & Discussion Pre-Anesthesia Teaching/Discussion Notes: Instructed NPO after midnight before surgery, except medications with 15 cc of water. Medication instructions provided according to the PAT guidelines. History Surgery Operation Date: 08/09/24 07:45 Proposed Procedures p L3-L4, L4-L5 Decompression and Fusion - Ziyad Mcgraw, Height/Weight Height: 5 ft 7.7 in Weight: 98.7 kg Allergies Allergy/AdvReac Type Severity Reaction Status Date / Time No Known Allergies Allergy Verified 07/10/24 12:35 Medications Home Medications Medication Instructions Recorded Confirmed Last Taken multivitamin (Daily Multi-Vitamin 1 tab PO HS 07/10/19 07/10/24 06/02/22 tablet) ascorbic acid (vitamin C) 500 mg 1,000 mg PO HS 01/09/20 07/10/24 06/02/22 tablet (Vitamin C) cetirizine 10 mg tablet (Zyrtec) 10 mg PO QAM 01/09/20 07/10/24 06/02/22 cholecalciferol (vitamin D3) 125 250 mcg PO HS 05/27/22 07/10/24 06/02/22 mcg (5,000 unit) tablet (Vitamin D3) ustekinumab 45 mg/0.5 mL 45 mg (0.5 mL) subcut .COMPLEX #2 01/01/24 07/10/24 Unknown subcutaneous syringe (Stelara) mL piroxicam 10 mg capsule 10 mg PO BID #180 caps 03/29/24 07/10/24 Unknown methotrexate sodium 2.5 mg tablet 20 mg (8 x 2.5 mg) PO Q7D #96 tabs 05/14/24 07/10/24 Unknown peg 3350-electrolytes 236 240 ml PO .COMPLEX #4,000 mL 06/26/24 Unknown gram-22.74 gram-6.74 gram-5.86 gram solution (Golytely) clobetasol 0.05 % topical ointment 1 applic topical DAILY PRN 07/10/24 07/10/24 Unknown psoriasis folic acid 1 mg tablet 1 mg PO HS 07/10/24 07/10/24 Unknown lisinopril 10 mg tablet 10 mg PO QAM 07/10/24 07/10/24 Unknown tramadol 50 mg tablet 50 mg PO Q8H PRN pain #45 tabs 07/11/24 Unknown Past Medical History Medical History (Updated 07/17/24 @ 09:57 by Yun Hebert PA-C) Arthritis Cervical spinal stenosis "Full ROM" GERD (gastroesophageal reflux disease) controlled, stable per pt History of COVID-19 (~2021) 08/2021-cold symptoms, resolved History of nephrolithiasis Passed on own History of shingles (2017) HTN (hypertension) controlled, stable per pt Mass of wrist Surgery scheduled 07/19/24 at [facility] outpatient - "will have local numbing" Psoriatic arthritis Follows [facility]/Dr. Ziyad Ulrich Patient denies h/o stroke, seizures, heart attack, heart failure, DM, blood clots/DVTs or blood transfusions. Exercise / Class Metabolic Activity II 4-5 Yardwork/Stairs/Walk up hill (denies chest discomfort or shortness of breath with one flight of stairs) Past Family History Family History Father Diabetes Heart disease Melanoma Mother Diabetes Hypertension Kidney disease Brother Diabetes Multiple myeloma Grandfather Heart disease Other No family history of adverse response to anesthesia Denies family history of Ovarian cancer Breast cancer Colorectal cancer Past Surgical History Surgical History History of robot-assisted laparoscopic hysterectomy (01/27/20) Nausea and vomiting after administration of anesthetic agent S/P carpal tunnel release (06/03/22) Right [place] teeth removed Past Anesthesia History No Hx of Anesthesia Complications and No Family Hx of Anesthesia Complications History of PONV No Hx of Motion Sickness and History of PONV (denies needing scop patch) Social History Smoking Status: Never smoker Do You Dip or Chew Tobacco: No Hx Alcohol Use: Yes Alcohol type: hard liquor alcohol intake frequency: a few times a week Hx Substance Use: No substance use type: does not use Review of Systems Snoring, denies witnessed apneas. Patient denies chest pain, shortness of breath, dyspnea on exertion, fever, chills, cough, wheezing, or palpitations. Physical Exam Vital Signs Vitals BP 117/80 P 96 TEMP 98.0 SP02 97% on RA RESP 18 Physical Patient resting comfortably in chair in no acute distress, alert and oriented, responding appropriately throughout visit Full cervical extension range of motion without pain TMD 3.5 finger breadths Mallampati Score 3 Dentition: intact, denies chipped or loose teeth, caps/crowns, implants or bridges Lungs: normal respiratory effort. Good air movement, clear throughout to auscultation, no adventitious breath sounds Cardiac: regular rate and rhythm, no murmurs noted Carotid arteries: negative bruit bilat Lab Results Anesthesia Preop Results Results Anesthesia Widget: WBC 10.55 K/ul (4.8-10.8) 06/18/24 Hgb 12.8 g/dl (12.0-16.0) 06/18/24 Hct 39.5 % (37.0-47.0) 06/18/24 Plt 426 K/uL (130-400) H 06/18/24 Na 138 mmol/L (136-145) 06/18/24 K 4.5 mmol/L (3.5-5.1) 06/18/24 Cl 102 mmol/L (98-107) 06/18/24 CO2 28 mmol/L (21-32) 06/18/24 BUN 21 mg/dl (6-23) 06/18/24 Creat 0.78 mg/dl (0.6-1.2) 06/18/24 Glucose Level 118 mg/dl (70-99(Fasting)) H 06/18/24 Fasting Glucose 118 mg/dl (70-99) H 06/18/24 PT 10.4 Seconds (9.0-12.0) 07/17/24 PTT 28 Seconds (21-31) 07/17/24 INR 1.0 (0.9-1.1) 07/17/24 HA1c 5.9 % (4.5-5.6) H 06/18/24 Urine Color Yellow 07/17/24 Urine Appearance Clear (Clear) 07/17/24 Urine pH 6.5 (4.5-7.5) 07/17/24 Urine Specific [place] 1.022 (1.000-1.030) 07/17/24 Urine Protein Negative (Negative) 07/17/24 Urine Glucose (UA) Negative (Negative) 07/17/24 Urine Ketones Negative (Negative) 07/17/24 Urine Blood Negative (Negative) 07/17/24 Urine Nitrite Negative (Negative) 07/17/24 Urine Bilirubin Negative (Negative) 07/17/24 Urine Urobilinogen Negative (Negative) 07/17/24 Urine Leukocyte Esterase Negative (Negative) 07/17/24 Blood Type A Positive 07/17/24 Antibody Screen NEGATIVE 07/17/24 Testing Electrocardiogram Date: 07/17/24 NSR, rate 85 bpm Chest X-Ray Date: 07/17/24 No acute cardiopulmonary findings. Stress Test Date: 06/06/23 METS 10 MPHR 106% No inducible ischemia EF 55-60% Mild cLVH Stage I diastolic dysfunction Cervical Spine Date: 06/26/24 1. Multilevel cervical spondylosis as above, greatest at C5-C6. See discussion for detailed level by level analysis. 2. The cervical cord is normal in morphology and signal intensity. 3. No destructive bony process is seen.
[2024-08-09] MEDS ORDERED: ROCURONIUM BROMIDE 10 MG/ML 5 ML VIAL IV ONE ×3 (11:58→15:08)
[2024-08-09] MEDS ORDERED: MIDAZOLAM HCL 1 MG/ML 2ML VIAL ONE (11:58)
[2024-08-09] MEDS ORDERED: PROPOFOL IV EMULSION 10 MG/ML 20 ML VIAL IV ONE ×3 (11:58→14:40)
[2024-08-09] MEDS ORDERED: fentaNYL citrate PF 100 MCG/2 ML VIAL ONE (11:58)
[2024-08-09] MEDS ORDERED: ONDANSETRON INJ 2 MG/ML 2 ML VIAL ONE ×2 (11:58→14:36)
[2024-08-09] MEDS ORDERED: GLYCOPYRROLATE 0.2 MG/ML VIAL ONE (11:58)
[2024-08-09] MEDS ORDERED: LIDOCAINE 2% 2 ML VIAL/AMP(20MG/ML) INFIL ONE (11:58)
[2024-08-09] MEDS ORDERED: DEXAMETHASONE SOD INJ 4 MG/ML VIAL ONE (11:58)
[2024-08-09] MEDS: GABAPENTIN 900 MG DOSE PO SCH (12:30)
[2024-08-09] MEDS: LR 60ML/HR IV SCH (12:31)
[2024-08-09] MEDS: ACETAMINOPHEN 500 MG TAB PO SCH (12:31)
[2024-08-09] MEDS: CeleBREX 200 MG CAP PO SCH (12:31)
--- NOTE | 2024-08-09 12:31 | History & Physical Bridge Note ---
Date of Service August 09, 2024 History & Physical Bridge Note I have examined the patient, reviewed the History & Physical and in the interval since the performance of the History & Physical I have noted the following changes of clinical significance: no changes noted
--- NOTE | 2024-08-09 12:33 | History & Physical Report ---
Date of Service August 09, 2024 Assessment & Plan (1) Spinal stenosis of lumbar region with radiculopathy: Plan: L3-L4 L4-L5 decompression and fusion History of Present Illness Chief Complaint: Back and bilateral leg pain Primary Care Provider: Ziyad Ulrich, DO This is a 49-year-old female who presents with chronic persistent back and bilaterally pain after failed course of nonoperative care is here for surgical invention. Allergies Allergy/AdvReac Type Severity Reaction Status Date / Time No Known Allergies Allergy Verified 08/09/24 12:05 Home Medications Medication Instructions Recorded Confirmed Type multivitamin (Daily Multi-Vitamin 1 tab PO HS 07/10/19 08/09/24 History tablet) ascorbic acid (vitamin C) 500 mg 1,000 mg PO HS 01/09/20 08/09/24 History tablet (Vitamin C) cetirizine 10 mg tablet (Zyrtec) 10 mg PO QAM 01/09/20 08/09/24 History cholecalciferol (vitamin D3) 125 250 mcg PO HS 05/27/22 08/09/24 History mcg (5,000 unit) tablet (Vitamin D3) ustekinumab 45 mg/0.5 mL 45 mg (0.5 mL) subcut .COMPLEX #2 01/01/24 08/09/24 Rx subcutaneous syringe (Stelara) mL piroxicam 10 mg capsule 10 mg PO BID #180 caps 03/29/24 08/09/24 Rx methotrexate sodium 2.5 mg tablet 20 mg (8 x 2.5 mg) PO Q7D #96 tabs 05/14/24 08/09/24 Rx peg 3350-electrolytes 236 240 ml PO .COMPLEX #4,000 mL 06/26/24 08/09/24 Rx gram-22.74 gram-6.74 gram-5.86 gram solution (Golytely) clobetasol 0.05 % topical ointment 1 applic topical DAILY PRN 07/10/24 08/09/24 History psoriasis folic acid 1 mg tablet 1 mg PO HS 07/10/24 08/09/24 History tramadol 50 mg tablet 50 mg PO Q8H PRN pain #45 tabs 07/11/24 08/09/24 Rx lisinopril 10 mg tablet 10 mg PO QAM #90 tabs 07/29/24 08/09/24 Rx Past Med/Surg History Problem List (Updated 08/09/24 @ 12:32 by Ziyad Mcgraw DO) Spinal stenosis of lumbar region with radiculopathy Idiopathic peripheral neuropathy Vitamin D deficiency Medical History Arthritis HTN (hypertension) Cervical spinal stenosis History of nephrolithiasis History of shingles (2017) GERD (gastroesophageal reflux disease) Mass of wrist History of COVID-19 (~2021) Psoriatic arthritis Surgical History Nausea and vomiting after administration of anesthetic agent S/P carpal tunnel release (06/03/22) History of robot-assisted laparoscopic hysterectomy (01/27/20) [place] teeth removed Family History Father Diabetes Heart disease Melanoma Mother Diabetes Hypertension Kidney disease Brother Diabetes Multiple myeloma Grandfather Heart disease Other No family history of adverse response to anesthesia Denies family history of Ovarian cancer Breast cancer Colorectal cancer Social History Smoking Status: Never smoker Second Hand Exposure: No; Do You Dip or Chew Tobacco: No; Tobacco Cessation Education Requested by Patient: No Hx Alcohol Use: Yes Alcohol type: hard liquor Alcohol Intake Frequency: 2-3 x/Week Hx Substance Use: No Preferred Language: Peruvian Communication Ability: Effective Visual Impairment: No Limitations Hearing Ability: Normal 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 Beliefs That Will Affect Care: None marital status: Current Living Situation: Spouse Current Living Situation Comment: current occupational status: employed current occupation: [employer] How many Children do You have: 2 Other Information That Helps Us Care for You: No Feels Safe at Home: Yes Safety Concerns: Feels Safe At This Time Childhood Exposure to Second-Hand Smoke: No Diet: regular Dental Care, Regularly: Yes Physical Activity Frequency: Does not Exercise Seatbelt Use: always Sunscreen Use: Yes Assistive Devices: Contacts and Glasses Physical Exam Physical Exam: Patient is alert and oriented Heart regular rhythm Lungs clear Results & Data Results & Data Vital Signs (Past 12 Hours) Vital Signs Temp Pulse Resp BP Pulse Ox O2 Del Method 08/09/24 12:09 36.8 C 100 H 18 133/88 97 Room Air
[2024-08-09] MEDS ORDERED: HYDROmorphone INJ 1 MG/ML SYRINGE IV PRN ×2 (12:36→17:31)
[2024-08-09] MEDS ORDERED: ATROPINE SULFATE 0.1 MG/ML 10ML SYR IV PRN (12:36)
[2024-08-09] MEDS ORDERED: ONDANSETRON INJ 2 MG/ML 2 ML VIAL IV PRN ×2 (12:36→17:31)
[2024-08-09] MEDS ORDERED: ePHEDrine sulfate 50 MG/ML AMP IV PRN (12:36)
[2024-08-09] MEDS: LR 15ML/HR IV SCH (12:37)
[2024-08-09] MEDS: SCOPOLAMINE 1 MG/72 HR TDSY PATCH TD ONE (12:58)
[2024-08-09] MEDS: ceFAZolin 2000MG 2,000 MG/15 ML SYR IV SCH ×2 (13:16→22:14)
[2024-08-09] MEDS ORDERED: TRANEXAMIC ACID / 0.7% NACL 1000MG/100ML BAG IV ONE (13:38)
[2024-08-09] MEDS: ceFAZolin 330 MG/ML 1 GM VIAL ONE (13:45)
[2024-08-09] MEDS: BUPIVACAINE/EPINEPHRINE 0.25% 1:200,000 30 ML VIAL ONE (13:45)
[2024-08-09] MEDS ORDERED: KETAMINE HCL 10MG/ML SYR ONE (13:50)
[2024-08-09] MEDS ORDERED: SUGAMMADEX SODIUM 200 MG/2 ML VIAL IV ONE (14:36)
[2024-08-09] MEDS ORDERED: diphenhydrAMINE 50 MG/ML VIAL ONE (14:37)
[2024-08-09] MEDS: FLOSEAL HEMOSTATIC MATRIX 10ML TOP ONE (15:27)
--- NOTE | 2024-08-09 15:44 | Operative Report ---
Post Operative Report Pre & Post Diagnosis Operation Date: 08/09/24 12:55 Pre-Op Diagnosis: #1 lumbar spondylolisthesis with radiculopathy. #2Spinal stenosis of lumbar region with radiculopathy Post-Op Diagnosis: Same I identified the patient and participated in the time-out.: Yes Procedure Operation Date: 08/09/24 12:55 Actual Procedures #1 lumbar decompression with bilateral medial facetectomies and foraminotomies L2-L3, L3-L4 and L4-5 per #2 posterior spinal fusion L3-L4 L4-5. #3 placed posterior instrumentation L3-L5 #4 interbody fusion L3-L4 L4-L5 #5 placement of Spira 14 x 26 mm x 2 at L3-L4 and 13 x 26 mm x 2 at L4-L5. #6 placement locally harvested morselized autograft posterior gutters per #7 placement infuse collagen sponge, with Koros in the posterior lateral gutters and os design bone graft in the right space. #8 application of versa wrap of the exposed dura. Surgeon Ziyad Mcgraw, DO Overlock Operator Denis Conrad Estimated Blood Loss 300 Findings See Below The patient is 5 foot 7 weighing over 90 kg a BMI in excess of 33. The patient's body habitus did contribute to significant technical difficulty with positioning exposure and the procedure itself and at least 50% increased operative time. Specimens None Indications This is a 49-year-old female who presents publish diagnosis after failing course of nonoperative care she is here for surgical invention. Description of Procedure Patient was met with identified informed consent obtained. Patient was then taken to the operative suite underwent ablation placed in a prone position the Naman table atop the Serg frame. All bony prominences well-padded eyes inspected to ensure no external pressure placed upon them. This point the lumbar spine was prepped and draped in normal sterile fashion. Sharp dissection with the assistance of Bovie cautery performed down to and exposing the lamina transverse processes of L3-L4-L5 bilaterally. From a caudal cephalad fashion complete laminectomy of L4 was performed including bilateral medial facetectomies and foraminotomies addressing severe spinal stenosis. Then performed a complete laminectomy of L3 with bilateral medial facetectomies and foraminotomies again with severe subarticular and foraminal stenosis. Lastly partial neck to the L2 was performed with bilateral medial facetectomies performed for subarticular stenosis. Pedicle screws were then placed L3-L4-L5 bilaterally with assistance of fluoroscopy and appropriate size billie placed. By way of transforaminal approach on the right a discectomy of L for L5 was performed endplates guarded to subcortical bleeding bone and a 13 x 26 mm spiral cage filled with os design bone graft tapped in position. Then proceeded the left transforaminal region at L4-L5. Again discectomy performed endplates guarded to subcortical bleeding bone and a second 13 x 26 mm spiral cage filled with ostia sign tapped into position. Then proceeded to L3-L4 by way of transforaminal approach on the left discectomy was performed endplates corrected to subcortical bleeding bone and a 14 x 26 mm Spira cage filled with os designed tapped in position. Then proceeded to the right transforaminal region. Again discectomy performed endplates guided to subcortical mean bone and a second 14 x 26 mm Spira cage filled with os design bone graft tapped position. The rods were then compressed locked in a final position bilaterally. The transverse processes of L3 L4-5 burred to subcortical bleeding bone. Infuse collagen sponge, with Koros and local autograft placed in the posterior gutters. 15 round SALINAS drain inserted. The incision was then closed with 1 Vicryl in the fascia 2-0 Vicryl subcutaneously and 4 Monocryl for final skin closure. Steri- Strips sterile dressing placed. Patient waken taken to PACU in stable condition. Please note spinal cord monitoring was utilized at the procedure no changes noted. Denis Conrad was present at the entire procedure and all the patient positioning complex portion of the surgery and final skin closure. Im ordering 20 grams of Triple [place] Collagen Powder ([employer] [id number]) to treat an incision wound that was caused by a spine procedure. The incision is approximately 2 cm(W) x 4 cm(L) into the joint (D) in size and is a full thickness wound. Triple [place] collagen comes in 1 gram packets so 20 packets were ordered. Given the size of the wound, with light to moderate exudate I chose to order a 20 day supply. The patient will be provided instructions for proper application of the collagen wound kit. The patient will be asked to apply the collagen powder daily and then cover it with sterile dressings dispensed. Collagen was selected as I expect the collagen to attract monocytes and fibroblasts, act as a sacrificial substrate for MMPs, and ultimately proved a matrix for tissue and vessel growth. The collagen will act as a primary dressing in this scenario. It is medically necessary for proper healing of these wounds to improve bioavailability and contact with each wound surface, this is also to help prevent infection of wounds and promote healing ultimately leading to a better healing outcome and limit the risk of infection. I attest to the content of the Intraoperative Record and any orders documented therein. Any exceptions are noted below.
--- NOTE | 2024-08-09 16:05 | Fluoroscopy Report ---
FL lumbar spine 2-3V CLINICAL HISTORY: L3-L4,L4-L5 DECOMP/FUSION TECHNIQUE: 2 views were obtained with the C-arm in the OR with the above procedure. Total fluoroscopy time was 32.1 seconds. Radiation dose was 16.09 mGy. Comparison: Comparison is made to MRI lumbar spine 05/20/2024 FINDINGS/IMPRESSION: Intraoperative images were obtained of L3-L4 and L4-L5 discectomy and fusion. Please correlate with intraoperative fluoroscopy and operative report. ACT 112: Negative or not required by law. Electronically signed by: Antelmo Fairbanks M.D. 08/09/2024 4:03 PM
[2024-08-09] MEDS: fentaNYL citrate PF 100 MCG/2 ML VIAL IV PRN (16:27)
--- NOTE | 2024-08-09 16:48 | Anesthesiology Progress Note ---
Date of Service August 09, 2024 Anesthesia Post Procedure Vital Signs Vital Signs: Temp Pulse Resp BP Pulse Ox O2 Del Method O2 Flow Rate 08/09/24 16:45 94 H 15 122/90 100 Oxymask 4 08/09/24 16:35 88 16 150/92 H 100 Oxymask 4 08/09/24 16:25 95 H 16 145/80 H 100 Oxymask 8 08/09/24 16:15 89 18 147/91 H 100 Oxymask 8 08/09/24 16:05 96.8 F L 92 H 16 142/88 H 100 Oxymask 8 08/09/24 12:09 98.2 F 100 H 18 133/88 97 Room Air Pain Intensity Generalized: Pain Intensity: 3 Back: Pain Intensity: 4 Transfer of Care Handoff Completed per policy Notes Mental Status: alert / awake / arousable and participated in evaluation Patient Amnestic to Procedure: Yes Nausea / Vomiting: adequately controlled Pain: adequately controlled Airway Patency, RR, SpO2: stable & adequate BP & HR: stable & adequate Hydration State: stable & adequate Anesthetic Complications: no major complications apparent and Pt Satisfied with anesthetic care
[2024-08-09] MEDS ORDERED: LORazepam 2 MG/1 ML VIAL IV PRN (17:31)
[2024-08-09] MEDS ORDERED: DO NOT ADMINISTER FLU VACCINE PRN (17:31)
[2024-08-09] MEDS ORDERED: SOD PHOSPHATE/SOD BIPHOSPHATE ENEMA 132 ML BTL PR PRN (17:31)
[2024-08-09] MEDS ORDERED: ALUMINUM/MAGNESIUM SUSP 30 ML UDC PO PRN (17:31)
[2024-08-09] MEDS ORDERED: DO NOT ADMINISTER PNEUMOCOCCAL VACCINE PRN (17:31)
[2024-08-09] MEDS ORDERED: NALOXONE HCL 0.4 MG/1 ML VIAL/CARP IV PRN (17:31)
[2024-08-09] MEDS ORDERED: ACETAMINOPHEN 1,000 MG/100 ML VIAL IV PRN (17:31)
[2024-08-09] MEDS ORDERED: hydrOXYzine HCl 25 MG TAB PO PRN (17:31)
[2024-08-09] MEDS ORDERED: diphenhydrAMINE Capsule 25 MG CAP PO PRN (17:31)
[2024-08-09] MEDS ORDERED: LORazepam 0.5 MG TAB PO PRN (17:31)
[2024-08-09] MEDS ORDERED: FAMOTIDINE 20 MG TAB PO PRN (17:31)
[2024-08-09] MEDS ORDERED: bisacodyL 10 MG SUPP PR PRN (17:31)
[2024-08-09] MEDS ORDERED: oxyCODONE HCL IR 5 MG TAB (IMMEDIATE RELEASE) PO PRN (17:31)
[2024-08-09] MEDS ORDERED: ONDANSETRON 4 MG OD TAB PO PRN (17:31)
[2024-08-09] MEDS ORDERED: PROMETHAZINE 12.5 MG/50.5 ML BAG IV PRN (17:31)
[2024-08-09] MEDS ORDERED: ACETAMINOPHEN 500 MG TAB PO PRN (17:31)
[2024-08-09] MEDS ORDERED: HYDROmorphone INJ 0.5 MG/0.5 ML SYR IV PRN (17:31)
[2024-08-09] MEDS ORDERED: METOCLOPRAMIDE HCL INJ 5 MG/ML 2 ML VIAL IV PRN (17:31)
[2024-08-09] MEDS ORDERED: MAGNESIUM HYDROXIDE SUSP 30 ML UDC PO PRN (17:31)
[2024-08-09] MEDS: CHECK SCOPOLAMINE PATCH PLACEMENT SCH (17:39)
[2024-08-09] MEDS: ASCORBIC ACID 500 MG TAB PO SCH (20:48)
[2024-08-09] MEDS: CHOLECALCIFEROL 125 MCG (5,000 UNITS) TAB PO SCH (20:48)
[2024-08-09] MEDS: FOLIC ACID 1 MG TAB PO SCH (20:49)
[2024-08-09] MEDS: PIROXICAM 10 MG CAP PO SCH (20:49)
[2024-08-09] MEDS: DOCUSATE SODIUM/SENNA 50/8.6MG TAB PO SCH (20:49)
[2024-08-09] MEDS: traMADol HCL 50 MG TABLET PO PRN (20:49)
[2024-08-10] MEDS: POLYETHYLENE (MIRALAX) 17 GM PACK PO SCH (06:17)
[2024-08-10 07:29] LABS: Basophils # (auto) 0.02 K/uL (0.00-0.20); Basophils % (auto) 0.1 %; Eosinophils # (auto) 0.05 K/uL (0.00-0.50); Eosinophils % (auto) 0.3 %; Hematocrit (blood only) 33.7 % (37.0-47.0); Hemoglobin 10.9 g/dl (12.0-16.0); Immature Granulocytes # (auto) 0.06 K/uL (0.01-0.20); Immature Granulocytes % (auto) 0.4 %; Lymphocytes # (auto) 2.28 K/uL (1.20-3.40); Mean Corpuscular Hemoglobin 29.5 pg (25.0-34.0); Mean Corpuscular Hgb Conc 32.3 g/dL (32.0-36.0); Mean Corpuscular Volume 91.1 fL (80.0-100.0); Mean Platelet Volume 10.1 fL (9.4-12.4); Monocytes # (auto) 1.18 K/uL (0.11-0.59); Monocytes % (auto) 7.3 %; Neutrophils # (auto) 12.64 K/uL (1.40-6.50); Neutrophils % (auto) 77.9 %; Platelet Count 300 K/uL (130-400); RDW Coefficient of Variation 13.5 % (11.5-14.5); RDW Standard Deviation 44.2 fL (36.4-46.3); White Blood Count 16.23 K/ul (4.8-10.8)
[2024-08-10 08:01] LABS: BUN Creatinine Ratio 13.9 (10-20); Calcium 8.9 mg/dl (8.6-10.3); Creatinine Clr Calc Pharmacy 105.4 ml/min; Potassium 3.8 mmol/L (3.5-5.1)
[2024-08-10] MEDS: CETIRIZINE HCL 10 MG TABLET PO SCH (08:18)
[2024-08-10] MEDS: lisinopril 10 MG TAB PO SCH (08:19)
[2024-08-10] MEDS: dexAMETHasone 6 MG in SYRINGE 0 ML IV SCH (08:20)
--- NOTE | 2024-08-10 08:24 | Hospitalist Consultation ---
Date of Consultation August 10, 2024 Assessment & Plan (1) Spinal stenosis of lumbar region with radiculopathy: s/p #1 lumbar decompression with bilateral medial facetectomies and foraminotomies L2-L3, L3-L4 and L4-5 per #2 posterior spinal fusion L3-L4 L4-5. #3 placed posterior instrumentation L3-L5 #4 interbody fusion L3-L4 L4-L5 #5 placement of Spira 14 x 26 mm x 2 at L3-L4 and 13 x 26 mm x 2 at L4-L5. #6 placement locally harvested morselized autograft posterior gutters per #7 placement infuse collagen sponge, with Koros in the posterior lateral gutters and os design bone graft in the right space. #8 application of versa wrap of the exposed dura. with Dr Mcgraw on 08/09. EBL listed 300cc issues w/ nausea/vomiting with anesthesia in the past and has been provided scopolamine patch Dexamethasone 6mg IV daily per primary service Rec consideration for gabapentin for baseline neuropathy in follow up as previously discussed per patient. Stellara on hold since the summer/off methtrexate per Dr Ulrich (agree) to promote wound healing. Pain controlled with ordered medications and joint pain w/ arhritis MUCH improved with steroids as ordered Dexamethasone IV per primary service Riley removed this morning, voiding spontaneously Passing gas, bowel regimen continued per primary service Continued pain control/bowel regimen/PT/OT/DVT per primary service Will monitor labs w/ CBC, BMP in AM but also check B12/ferritin for completeness (2) Psoriatic arthritis: Last dose Stelara to have been in June however given her right wrist surgery this was held and last dose was in February per patient. Also on methotrexate and has been off both prior to surgery (had pain for couple weeks). She has had antibodies in the past to alternative DMARD therapy (per patient, about q7 yrs) At present, STABLE pain control Suspect steroid benefit and has been continued daily. Had been using tramadol ~2x/daily at home while off her usual meds with reasonable control and per patient she would rather promote wound healing and get this over with. Should remain off DMARD/methotrexate at discharge and can follow up with Dr Ulrich as already doing (3) HTN (hypertension): BP stable 124/80 with stable renal function and lisinopril 10mg daily has been continued Notable Mallampati score 3, should consider testing for MARCELO outpatient w/ PCP (4) Idiopathic peripheral neuropathy: noted,improved/stable. TSH prior checked and wnl 2021 (can repeat w/ AM labs) will also check B12/ferritin Monitoring, consideration for gabapentin in follow up and rec for start LOW dose/titrate as tolerated/effective (5) Vitamin D deficiency: noted, Vit D continued Plan Thank you for allowing hospitalist service participate in the care of Ms Merritt. Hospitalist service will follow along. Please call with any questions/concerns in the meantime. Supervising Physician Co-Signing Physician Notes The patient was seen by me. The chart was reviewed. Case discussed with MJ Olivo. Agree with assessment and plan History of Present Illness Reason for Consultation: medical management Requesting Physician: Dr Mcgraw Attending Physician: Ziyad Mcgraw, History of Present Illness 49yo female with PMHx significant for psoriatic arthritis, HTN, vitamin D deficiency presented for lumbar decompression and fusion of L3-L4, L4-L5 with Dr Mcgraw on 08/09. EBL listed as 300cc. Eval in 304 this afternoon, sitting up in chair eating lunch. Reports her arthritis pain is much improved today despite being off her methotrexate and has been off her Stellara for her right wrist surgery this past month as well as continued to hold her June injection due to current surgery to allow for improved wound healing. Her last injection was in February but does report just having started that medication this year as developed antibodies to prior immunotherapy. Discussed steroids ordered by primary likely cause for improvement in generalized joint pain from her underlying psoriatic arthritis. She was a little disappointed to not be moving around as well as expected today but discussed only day 1 and support provided. Had prior checked TSH testing and has had EMG testing for polyneuropathy. Does report prior recs by prior provider about possible gabapentin and can be further discussed/encouraged trial in follow up with PCP. Does have decreased extension of the wrist on the right but has improved since removal of mass/fluid collection which she reports had spread to her tendons in her hand and actually feels the best it has. She typically moves her bowels 2x/daily, is passing gas. No BM today but no significant abdominal pain but does have some cramping. Continues on bowel regimen. Discussed to alert if not passing gas/increased pain to evaluate as risk for ileus w/ decreased mobility and back surgery. Riley removed this morning, has urinated since. No fever/chills, chest pain, shortness of breath, abdominal pain, nausea/vomiting. Does have some dry mouth from scopolamine patch. She has been pushing tons of fluids. , nursing to provide biotin spray. Questions/concerns addressed at this time. Has had ~40lb weight gain over the past year, snoring noted and recs for outpt f/u for sleep study. Mallampati score noted III. No prior diagnosed MARCELO but has been suspected and should have follow up. Also will check B12 w/ neuropathy for completeness, interestingly she reports she was told lower in the past. Does have occasional alcohol but no excessive use reported. ALso note, she is waiting for surgery for her right shoulder as well in the near future. Allergies Allergy/AdvReac Type Severity Reaction Status Date / Time No Known Allergies Allergy Verified 08/09/24 12:05 Home Medications Medication Instructions Recorded Confirmed Type multivitamin (Daily Multi-Vitamin 1 tab PO HS 07/10/19 08/09/24 History tablet) ascorbic acid (vitamin C) 500 mg 1,000 mg PO HS 01/09/20 08/09/24 History tablet (Vitamin C) cetirizine 10 mg tablet (Zyrtec) 10 mg PO QAM 01/09/20 08/09/24 History cholecalciferol (vitamin D3) 125 250 mcg PO HS 05/27/22 08/09/24 History mcg (5,000 unit) tablet (Vitamin D3) ustekinumab 45 mg/0.5 mL 45 mg (0.5 mL) subcut .COMPLEX #2 01/01/24 08/09/24 Rx subcutaneous syringe (Stelara) mL piroxicam 10 mg capsule 10 mg PO BID #180 caps 03/29/24 08/09/24 Rx methotrexate sodium 2.5 mg tablet 20 mg (8 x 2.5 mg) PO Q7D #96 tabs 05/14/24 08/09/24 Rx peg 3350-electrolytes 236 240 ml PO .COMPLEX #4,000 mL 06/26/24 08/09/24 Rx gram-22.74 gram-6.74 gram-5.86 gram solution (Golytely) clobetasol 0.05 % topical ointment 1 applic topical DAILY PRN 07/10/24 08/09/24 History psoriasis folic acid 1 mg tablet 1 mg PO HS 07/10/24 08/09/24 History tramadol 50 mg tablet 50 mg PO Q8H PRN pain #45 tabs 07/11/24 08/09/24 Rx lisinopril 10 mg tablet 10 mg PO QAM #90 tabs 07/29/24 08/09/24 Rx oxycodone 5 mg tablet 5 mg PO Q6H PRN pain #30 tabs 08/10/24 Rx tramadol 50 mg tablet 50 mg PO Q6H PRN pain, moderate 08/10/24 Rx #30 tabs Patient History Medical History Arthritis HTN (hypertension) Cervical spinal stenosis History of nephrolithiasis History of shingles (2016) GERD (gastroesophageal reflux disease) Mass of wrist History of COVID-19 (~2021) Psoriatic arthritis Surgical History Nausea and vomiting after administration of anesthetic agent S/P carpal tunnel release (06/03/22) History of robot-assisted laparoscopic hysterectomy (01/27/20) [place] teeth removed Family History Father Diabetes Heart disease Melanoma Mother Diabetes Hypertension Kidney disease Brother Diabetes Multiple myeloma Grandfather Heart disease Other No family history of adverse response to anesthesia Denies family history of Ovarian cancer Breast cancer Colorectal cancer Social History Smoking Status: Never smoker Second Hand Exposure: No; Do You Dip or Chew Tobacco: No; Tobacco Cessation Education Requested by Patient: No Hx Alcohol Use: Yes Alcohol type: hard liquor Alcohol Intake Frequency: 2-3 x/Week Hx Substance Use: No Preferred Language: Greek Communication Ability: Effective Visual Impairment: No Limitations Hearing Ability: Normal Slitter Creaser Slotter Helper Required: No Beliefs That Will Affect Care: None marital status: Current Living Situation: Spouse Current Living Situation Comment: current occupational status: employed current occupation: [employer] How many Children do You have: 2 Other Information That Helps Us Care for You: No Feels Safe at Home: Yes Safety Concerns: Feels Safe At This Time Childhood Exposure to Second-Hand Smoke: No Diet: regular Dental Care, Regularly: Yes Physical Activity Frequency: Does not Exercise Seatbelt Use: always Sunscreen Use: Yes Assistive Devices: Contacts and Glasses Physical Exam 2 Physical Exam: General: 49yo female sitting up in bed eating lunch, NAD HEENT head atraumatic, normocephalic, mm slightly dry (pushing fluids, nursing to provide biotin spray), trachea midline Resp: even/unlabored, no w/c/r, on room air CV: RRR, no significant mrg, no pitting edema, pulses present GI: +BS, slight distension but no overt tenderness, no guarding/rebound : no riley, removed this morning by nursing and reporting voiding spontaneously MSK/Neuro: dressing to lumbar spine c/d/i, dorsiflexion/plantar flexion intact, baseline neuropathy but pressure sensation intact/pulses present Right wrist with healed incision to posterior aspect from recent surgery, extension limited however reported much improved from prior Psych: AOx3, cooperative and pleasant with exam Results & Data Results & Data Vital Signs (Past 12 Hours) Vital Signs Temp Pulse Resp BP Pulse Ox O2 Del Method 08/10/24 06:59 36.3 C L 93 H 16 124/80 98 Room Air 08/10/24 03:00 36.4 C L 68 14 118/75 98 Room Air 08/09/24 23:17 36.9 C 101 H 14 116/70 98 Room Air Laboratory Results 08/10/24 06:54 08/10/24 06:54 Diagnostic Findings Lumbar Spine X-Ray 08/09/24 00:00 FL lumbar spine 2-3V CLINICAL HISTORY: L3-L4,L4-L5 DECOMP/FUSION TECHNIQUE: 2 views were obtained with the C-arm in the OR with the above procedure. Total fluoroscopy time was 32.1 seconds. Radiation dose was 16.09 mGy. Comparison: Comparison is made to MRI lumbar spine 05/20/2024 FINDINGS/IMPRESSION: Intraoperative images were obtained of L3-L4 and L4-L5 discectomy and fusion. Please correlate with intraoperative fluoroscopy and operative report. ACT 112: Negative or not required by law. Electronically signed by: Antelmo Faibranks M.D. 08/09/2024 4:03 PM PG Care Time/CCT Total # of Minutes Spent Total Time Spent with Patient: Total time spent is greater than 50% in coordination of care (as documented) at patient's floor/unit and/or counseling patient: Coding Level of Care Code 39250 IN/OBS CONSULT LVL 3,45M Diagnoses Spinal stenosis of lumbar region with radiculopathy M48.061; M54.16 Psoriatic arthritis L40.50 HTN (hypertension) I10 Idiopathic peripheral neuropathy G60.9 Vitamin D deficiency E55.9
--- NOTE | 2024-08-10 08:32 | Orthopedic Progress Note ---
Date of Service August 10, 2024 Assessment & Plan (1) Spinal stenosis of lumbar region with radiculopathy: Plan: At this point we will initiate physical therapy monitor her SALINAS operatively discharge home in the next few days. Admission and Anticipated Discharge Date Admission Date: August 09, 2024 Subjective Patient's back pain is controlled leg symptoms improved. Physical Exam Physical Exam: Patient is currently bed. She is comfortable. Distracted testing. Results & Data Vital Signs (Past 12 Hours) Vital Signs Temp Pulse Resp BP Pulse Ox O2 Del Method 08/10/24 08:18 130/81 08/10/24 06:59 36.3 C L 93 H 16 124/80 98 Room Air 08/10/24 03:00 36.4 C L 68 14 118/75 98 Room Air 08/09/24 23:17 36.9 C 101 H 14 116/70 98 Room Air Queries Orthopedic Spine Obesity: Yes
--- OUTSIDE RECORDS SUMMARY | 2024-08-10 22:53 | External Medical Summary | Continuity of Care Document ---
Author Name Unknown Organization [id number] Address [address] [place] [id number] Care Team Providers Care Shuttle Operator Name Role Phone Dianna Diggs Primary Care Physician [phone] Encounter [id number] Date(s): 08/01/24 - 08/01/24 [facility] [address] [place], [place] [address] [address] Encounter Diagnosis S/P orthopedic surgery, follow-up exam(Discharge Diagnosis) - 08/01/24 Discharge Disposition: Home or Self Care Attending Physician: MD Lion Kenneth F Referring Physician: MD Lion Kenneth F Allergies, Adverse Reactions, Alerts No Known Medication Allergies Medications ascorbic acid 1000 mg oral tablet Start: 11/22/21 3:24:00 PM EDT, 1000 Unknown, Oral, 1 Refill(s), Take 1,000 mg by mouth daily. Start Date: 11/22/21 Status: Ordered Cosentyx Sensoready Pen 2-pack 150 mg/mL SQ solution Start: 11/22/21 3:25:00 PM EDT, See Instructions, Disp# 2 mL, INJECT 2 PENS (300 MG) UNDER THE SKIN EVERY 4 WEEKS Start Date: 11/22/21 Status: Ordered folic acid 1 mg oral tablet Start: 11/22/21 3:24:00 PM EDT, 30 each, TAKE 1 TABLET BY MOUTH EVERY DAY Start Date: 11/22/21 Status: Ordered ibuprofen 600 mg oral tablet Start: 05/30/22 1:43:00 PM EDT Start Date: 05/30/22 Status: Ordered leflunomide 10 mg oral tablet Start: 05/30/22 1:43:00 PM EDT, PO, Daily, 20 mg daily Start Date: 05/30/22 Status: Ordered potassium citrate 10 mEq oral tablet, extended release Start: 11/22/21 3:25:00 PM EDT, 60 each, TAKE 1 TABLET BY MOUTH TWICE A DAY Start Date: 11/22/21 Status: Ordered ZyrTEC Start: 11/22/21 3:25:00 PM EDT, PO, Daily Start Date: 11/22/21 Status: Ordered Mental Status 08/01/24 Barriers to Learning one year None evide nt Mandatory Health Literacy Documentation Yes Health Literacy Communication Barriers N ever Primary Language Japanese Problem List Condition Confirmation Course Effective Dates Status Health St atus Informant CTS (carpal tunnel syndrome) Confirmed Active Hand pain 1 Confirmed Active Psoriatic arthritis Confirmed Active S/P orthopedic surgery, follow-up exam Confirmed Active 1b/l hand and wrist pain Diagnosis Diagnosis Type Effective Dates Health Status Clinical Service Informant S/P orthopedic surgery, follow-up exam Discharge Diagnosis 08/01/24 Procedures Procedure Date Related Diagnosis Body Site Status Endoscopic carpal tunnel release 1 06/03/22 Completed History of hysterectomy C ompleted [place] tooth Completed 1Right Social History Social History Type Response Smoking Status Never smoked cigaret daryn Sex Sex Representation Female (finding) Ortho Outpt Note * MD Amisha, Berhane Méndez: PERFORM Event Display: Ortho Outpt Note Authored Date: [id number] Name:MONICA CAI Patient Number:[id number] :1975 Date of Service:08/01/2024 This patient is a 48-year-old femalewho presents for for scheduled postoperative visit after right fourth dorsal wrist compartment tenosynovectomy performed on July 19. All cultures are negative to date. Her incision is healed nicely and sutures are removed. Steri-Strips were applied.She has her baseline stiffness about the wrist and hand. She is happy the results thus far. Plans to begin increasing activities as tolerated. I will continue to monitor the long-term culturesand we will phone the patient as anything comes up positive. Otherwise we will follow-up as needed Electronic Signature on File Electronically Reviewed/Signed by: Berhane Lion MD Author Signature Dt/Tm:08/01/2024 01:49 PM Division of Orthopaedics KFT Patient Care team information Care Team Personnel Name: MD Diggs Carrie A Position: Referring Member Role: Primary Care Provider Address: [address] [place] [id number] [place] Care Team Related Persons Name: TALIB CAI Name: PATEL CAI
[2024-08-11 06:21] LABS: Hematocrit (blood only) 33.4 % (37.0-47.0); Hemoglobin 10.7 g/dl (12.0-16.0); Mean Corpuscular Hemoglobin 29.2 pg (25.0-34.0); Mean Platelet Volume 10.3 fL (9.4-12.4); Platelet Count 299 K/uL (130-400); RDW Coefficient of Variation 13.7 % (11.5-14.5); RDW Standard Deviation 44.8 fL (36.4-46.3); Red Blood Count 3.67 M/uL (4.20-5.40); White Blood Count 13.43 K/ul (4.8-10.8)
[2024-08-11 06:40] LABS: BUN Creatinine Ratio 20.8 (10-20); Calcium 8.9 mg/dl (8.6-10.3); Creatinine Clr Calc Pharmacy 115.6 ml/min; Potassium 3.8 mmol/L (3.5-5.1)
[2024-08-11 06:55] LABS: Thyroid Stimulating Hormone 3.805 uIu/ml (0.300-4.500)
--- NOTE | 2024-08-11 08:49 | Hospitalist Progress Note ---
Date of Service August 11, 2024 Assessment & Plan (1) Spinal stenosis of lumbar region with radiculopathy: Plan: s/p #1 lumbar decompression with bilateral medial facetectomies and foraminotomies L2-L3, L3-L4 and L4-5 per #2 posterior spinal fusion L3-L4 L4-5. #3 placed posterior instrumentation L3-L5 #4 interbody fusion L3-L4 L4-L5 #5 placement of Spira 14 x 26 mm x 2 at L3-L4 and 13 x 26 mm x 2 at L4-L5. #6 placement locally harvested morselized autograft posterior gutters per #7 placement infuse collagen sponge, with Koros in the posterior lateral gutters and os design bone graft in the right space. #8 application of versa wrap of the exposed dura. with Dr Mcgraw on 08/09. EBL listed 300cc issues w/ nausea/vomiting with anesthesia in the past and has been provided scopolamine patch Continued pain control/bowel regimen/PT/OT/DVT per primary service Dexamethasone 6mg IV daily Hgb 10.9--> 10.7, acute blood loss anemia from surgery/dilutional aspect from IVF. No CP/SOB, BP stable. Riley removed 08/10. BUN/Cr stable. Eating/drinking without issue. +BM x 2 and remains on bowel regimen B12 IM x 1, converted to PO and rec for patient to continue such. Vit D acceptable/hx stones. Should discuss decrease VitD PO at dc to prevent elevations. Planning for dc in AM per patient. Dispo per primary service (2) Psoriatic arthritis: Plan: Last dose Stelara to have been in June however given her right wrist surgery this was held and last dose was in February per patient. Also on methotrexate and has been off both prior to surgery (had pain for couple weeks). She has had antibodies in the past to alternative DMARD therapy (per patient, about q7 yrs) At present, STABLE pain control Suspect steroid benefit and has been continued daily. Had been using tramadol ~2x/daily at home while off her usual meds with reasonable control and per patient she would rather promote wound healing and get this over with. Should remain off DMARD/methotrexate at discharge and can follow up with Dr Martínez as already doing F/u discussion about reduction in Vit D now that in much better range to 125mcg daily but defer to Dr Martínez in f/u (3) HTN (hypertension): Plan: BP stable with renal function stable Lisinopril 10mg daily continued F/u discussion PCP about sleep testing rec'd (4) Idiopathic peripheral neuropathy: Plan: noted,improved/stable. prior rec for consideration trial gabapentin outpt which can be discussed TSH prior checked and wnl 2021, repeat wnl Ferritin wnl B12 checked and LOW, IM x 1 given and discussion with patient will convert to PO but SHOULD CONTINUE 1000mcg PO DAILY at nv (5) Vitamin D deficiency: Plan: noted, Vit D continued. Level 77.8 wnl --> Notable on 250mcg PO daily, should follow up with provider prescribuing to ensure not over treatment given high dose but w/ psoriatic arthritis will continue/defer to specialist in f/u. as above, consideration for 125mcg PO daily to be considered (6) B12 deficiency: Plan: B12 checked w/ neuropathy LOW 160, IM replacement ordered while inpatient however didn't like injection and changed to PO for AM/should be continued Plan Thank you for allowing hospitalist service participate in the care of Ms Merritt. Hospitalist service will follow along in AM but likely able to sign off if no issues overnight. Please call with any questions/concerns in the meantime. Admission and Anticipated Discharge Date Admission Date: August 09, 2024 Supervising Physician Co-Signing Physician Notes The patient was not seen by me. The chart was reviewed. Case discussed with MJ Olivo. Agree with assessment and plan Subjective Eval this morning Sitting up in chair eating lunch Moved bowels x 2 Pain controlled, joint symptoms stable. Per primary service, wanting to monitor overnight. Did get IM B12 injection, discussed continued supplementation at nv. Discussed Vit D, hx stones. Should discuss with Dr Martínez about possible reduction now that in acceptable range to prevent elevation. No CP/SOB. SALINAS emptied this morning, decreased output and hopeful removal in am and early discharge per patient. Questions/concerns addressed at this time. Physical Exam 2 Physical Exam: General: 49yo female sitting up in bed eating lunch, NAD HEENT head atraumatic, normocephalic, mm improved, pushing fluids, trachea midline Resp: even/unlabored, no w/c/r, on room air CV: RRR, no significant mrg, no pitting edema, pulses present GI: +BS, decreased distension, no overt tenderness : no riley MSK/Neuro: dressing to lumbar spine c/d/i, dorsiflexion/plantar flexion intact, SALINAS output decreased/serosangiouns output Right wrist with healed incision to posterior aspect from recent surgery, extension limited however reported much improved from prior Psych: AOx3, cooperative and pleasant with exam Results & Data Results & Data Vital Signs (Past 12 Hours) Vital Signs Temp Pulse Resp BP Pulse Ox O2 Del Method 08/11/24 07:25 36.5 C 81 16 114/71 95 Room Air Laboratory Results 08/11/24 05:42 08/11/24 05:42 B12 160 Vit D 77.8 TSH 3.8 PG Care Time/CCT Total # of Minutes Spent Total Time Spent with Patient: Total time spent is greater than 50% in coordination of care (as documented) at patient's floor/unit and/or counseling patient: Coding Level of Care Code 86928 SUB INP/OBS CARE 3/50MIN Diagnoses Spinal stenosis of lumbar region with radiculopathy M48.061; M54.16 Psoriatic arthritis L40.50 HTN (hypertension) I10 Idiopathic peripheral neuropathy G60.9 Vitamin D deficiency E55.9 B12 deficiency E53.8
[2024-08-11] MEDS: CYANOCOBALAMIN 1000 MCG/ML VIAL IM SCH (10:05)
--- NOTE | 2024-08-11 11:10 | Orthopedic Progress Note ---
Date of Service August 11, 2024 Assessment & Plan (1) Spinal stenosis of lumbar region with radiculopathy: Plan: This time we will continue physical therapy monitor her SALINAS output anticipate discharge home tomorrow. Admission and Anticipated Discharge Date Admission Date: August 09, 2024 Subjective Back pain controlled leg pain improved. She feels much better today. Physical Exam Physical Exam: Patient is in the chair at the bedside. She is comfortable. Good strength testing. Results & Data Vital Signs (Past 12 Hours) Vital Signs Temp Pulse Resp BP Pulse Ox O2 Del Method 08/11/24 07:25 36.5 C 81 16 114/71 95 Room Air Queries Orthopedic Spine Acute Posthemorrhagic Anemia: Yes Obesity: Yes
[2024-08-11] MEDS: FAMOTIDINE 20MG IV PUSH 20 MG/5 ML SYR IV SCH (12:58)
[2024-08-12 07:24] VITALS: BP 128/78; PULSE 85; RESP 16; TEMP 97.5; O2SAT 96
[2024-08-12] MEDS: CYANOCOBALAMIN (B-12) 500 MCG TABLET PO SCH (07:30)
--- NOTE | 2024-08-12 09:38 | Discharge Summary ---
Date of Service August 12, 2024 Admission HPI Per Admitting Provider This is a 49-year-old female who presents with chronic persistent back and bilaterally pain after failed course of nonoperative care is here for surgical invention. Principal Diagnosis Lumbar spondylosis with radiculopathy Discharge Data Allergies Allergy/AdvReac Type Severity Reaction Status Date / Time No Known Allergies Allergy Verified 08/09/24 12:05 Consultations 08/09/24 17:31 Consult Hospitalist Routine Procedures Performed Operation Date: 08/09/24 12:55 Actual Procedures p L3-L4, L4-L5 Decompression and Fusion, Interbody Fusion, Spinal Cord Monitoring(Not Applicable) - Ziyad Mcgraw DO Ordered Studies 08/09/24 [place] lumbar spine 2-3V Routine Hospital Course (1) Spinal stenosis of lumbar region with radiculopathy: Patient went multilevel lumbar decompression and fusion tolerated this well was taken to the orthopedic for postoperative. Post ablation progressed appropriately. Leg pain improved. Excellent strength testing. Pain well- controlled. SALINAS drain decreasing. Subsequently discharged home. Discharge orders and instructions from the chart for further review. Total Time Total Time Spent Total Time Spent (In Minutes): 20 minutes Discharge Plan Discharge Items Patient Disposition: Home - Self-Care Reason For Visit: Lumbar Spine Pain, Lumbar Stenosis with Neurogenic Discharge Diagnosis: Lumbar spinal stenosis with radiculopathy Activity: As commented below Non-emergency contact: Primary Care Provider Call non-emergency contact if: you have any medication questions Follow-up/Referrals: Ziyad Ulrich DO [Primary Care Provider] - Diet: Regular Addtl Attending Provider Instructions: ACTIVITY RECOMMENDATIONS: SELF CARE INSTRUCTIONS AFTER THORACIC/LUMBAR FUSIONS 1. You may walk to your tolerance. It is good exercise for your legs and back. Expect some back and intermittent leg aches and pains. 2. You may perform "counter-top" level activities (make a sandwich, mark with a project, etc.). 3. No bending or lifting of more than 10 pounds or back twisting of any nature (roll like a log when turning in bed). 4. You may ride in a car for 20-30 minutes at a time. No driving until after your first visit with your doctor. 5. Frequent changes of position and restricting sitting to 30 minutes at a time will help limit the amount of back spasms and stiffness you may experience. 6. You may discontinue the use of ambulatory aids (cane, crutches, etc.) once your strength and confidence allow. 7. You may mannequin coloring artist the shower and let water strike your incision when you arrive home at least once daily. Do not take a tub bath, sit in a hot tub or go into a swimming pool until after your first recheck in the office. 8. You may resume previous diet. SPECIAL CARE INSTRUCTIONS: VERY IMPORTANT TO READ AND REVIEW A. Your surgical incision has been closed with a cosmetic suture under the skin that will dissolve in about 6 weeks. In 14 days, you can use a pair of clean scissors and cut the suture that is left outside of the skin at the ends of your incision. 1. The small skin tapes can be removed 7 days after surgery if they have not fallen off by that point. 2. You may keep the wound open to air as much as possible to promote healing after post-op day number 5 unless told otherwise by your doctor. 3. If you think the wound looks like it is becoming infected (redness or worsening drainage) and/or you are experiencing fever, chill or worsening back pain and muscle spasms, contact the office so that we may evaluate you as soon as possible. B. Complications are uncommon, but please contact us if you have any signs or symptoms of: 1. wound infection (fever higher than 102.5 degrees F, redness, separation of wound, drainage, or increasing pain from the incision) 2. blood clots in legs (pain, swelling, redness and warmth in legs) 3. urinary tract infection (fever higher than 102.5 degrees F, burning upon urination or increased frequency of urination) 4. nerve problems (inability to walk on your toes or heels, numbness, loss of bowel or bladder control) 5. any other symptoms that concern you C. Please call the office at if you have any concerns or questions about your operation or recovery. D. No smoking! Smoking drastically decreases the chance of a solid fusion. E. Do not take any anti-inflammatory medications (Indocin, Advil, Motrin, Aspirin, Naprosyn, etc.) as these may inhibit the chance of a solid fusion. Tylenol is okay to take for pain. MANAGING PAIN AFTER SPINAL SURGERY 1. Narcotic medication is intended for short-term use and will be provided for surgical pain. Surgical pain usually lasts for a period of 4-6 weeks. Narcotic medication includes Percocet, Vicodin, Darvocet, Tylenol #3 or Lortab. 2. Longer-term pain is more appropriately treated with non-narcotic medication such as Tylenol ES. 3. Muscle spasm is not appropriately treated with narcotics. Muscle relaxers such as Soma, Flexeril or Skelaxin can be used along with Tylenol ES. 4. Remember that we all live with some "aches and pains". This is not unusual or uncommon after an injury or as we get older. a. Back pain is expected and may include muscle spasms for 4 to 6 weeks after surgery. The pain should gradually improve. If the pain worsens for no apparent reason, please contact the office. b. Intermittent leg pain may also be experienced and should not be concerned about unless it worsens for no apparent reason. If so, please contact the office. 5. We will provide appropriate medication within the normal guidelines of their prescribed use. We will also be very cautious and aware of potential abuse and extended duration of patients' medication needs. a. Pain medications are for your comfort and to assist with sleep and rest so that the tissue can heal. They are not provided in order to return to normal activity and should not be used through the day. To do so or worsening pain at night can result from ongoing tissue damage and development of tolerance to the prescribed medicine. 6. Please allow 2-3 days to process refills. Prescriptions will not be mailed but must be picked up at the office. FOLLOW UP VISIT: Keep your scheduled follow-up appointment. Any questions, please call the office at . Addtl Sales Officer Provider Instructions: Please continue B12 1000mcg by mouth daily as discussed. Please discuss with Dr Ulrich about decreasing your vitamin D supplementation to prevent over treatment given significant improvement but would defer to specialist prior to making this change given your underlying psoriatic arthritis. Pending Studies at Discharge: No Stand-Alone Forms: [employer], Smoking Cessation Medications and DC Order Prescriptions: New tramadol 50 mg tablet 50 mg PO Q6H PRN (Reason: pain, moderate) Qty: 30 0RF oxycodone 5 mg tablet 5 mg PO Q6H PRN (Reason: pain) Qty: 30 0RF cyanocobalamin (vitamin B-12) 1,000 mcg tablet 1,000 mcg PO DAILY Qty: 30 0RF Continued Stelara 45 mg/0.5 mL syringe 45 mg subcut .COMPLEX Qty: 2 0RF Rx Instructions: inject initial dose, repeat in 4 weeks, and then continue every 12 weeks Dorina Merritt (Munoz: [id number]) MJ Need Help? Call us at Outcome Approved on December 28 [facility] Pharmacy Policy Authorization Expiration Date: 12/26/2024 piroxicam 10 mg capsule 10 mg PO BID Qty: 180 2RF peg 3350-electrolytes [Golytely] [id number] -5.86 gram recon soln 240 ml PO .COMPLEX Qty: 4000 0RF Rx Instructions: 240 mL PO take as directed per split dose instructions tramadol 50 mg tablet 50 mg PO Q8H PRN (Reason: pain) Qty: 45 0RF lisinopril 10 mg tablet 10 mg PO QAM Qty: 90 1RF Rx Instructions: TAKE 1 TABLET BY MOUTH EVERY DAY multivitamin [Daily Multi-Vitamin] tablet 1 tab PO HS cetirizine [Zyrtec] 10 mg Tablet 10 mg PO QAM ascorbic acid (vitamin C) [Vitamin C] 500 mg Tablet 1,000 mg PO HS cholecalciferol (vitamin D3) [Vitamin D3] 125 mcg (5,000 unit) Tablet 250 mcg PO HS clobetasol 0.05 % ointment 1 applic TOPICAL DAILY PRN (Reason: psoriasis) folic acid 1 mg tablet 1 mg PO HS Held methotrexate sodium 2.5 mg tablet 20 mg PO Q7D Qty: 96 0RF Discharge Orders: Discharge Order (Routine); Ordered 08/12/24 Ordered By: Ziyad Mcgraw Admission Data Admit Date/Time: 08/09/24 15:48 Attending Provider: Ziyad Mcgraw Admit Provider: Ziyad Mcgraw Primary Care Provider: Ziyad Ulrich Other Providers: Mile Nguyễn
== END 2024-08-12 12:44 | disposition home or self-care (01) | DRG 427 ==
LOC: ASU 11:32 → 3E 15:48